=== PATIENT | female | born 1935 | race Caucasian/White ===

== ENCOUNTER 2017-07-25 16:58 | Inpatient (IN) | payer MEDICARE, SELFPAY ==
[2017-07-25] VITALS (10 sets, daily range): BP systolic 126–158; BP diastolic 83–98; PULSE 75–127; RESP 16–20; TEMP 36.7; O2SAT 94–97; BMI 31.5; BMI 30.5; BMI 30.6
--- NOTE | 2017-07-25 17:35 | RAD_ITS ---
STUDY: X-RAY CHEST REASON FOR EXAM: Female, 81 years old. PALPITATIONS, AFIB, PT HAD RECENT AORTIC VALVE REPLACEMENT TECHNIQUE: Single AP portable view of the chest. COMPARISON: January 23, 2017 FINDINGS: Cardiac monitoring leads are present. Lower lung volumes are noted. There are now small bilateral pleural effusions and subjacent compressive atelectasis. There is no evidence of interstitial or alveolar edema. Suspect probable underlying COPD with hyperlucency of the right upper lobe, this was present previously. Heart size is stable. There is mild atherosclerotic tortuosity of the aorta. It does appear that there is intracardiac aortic device.. There are diffuse degenerative changes of the visualized thoracic spine. The thoracic spine however is not well seen secondary to degenerative endplate changes. Normal visualized ribs, clavicles, and shoulders. There is no demonstrated abnormality of the visualized soft tissue structures of the upper abdomen. RAD/Chest 1 View (Portable) IMPRESSION: Bilateral pleural effusions with subjacent hypoventilatory change at the lung bases. See above. Electronically Signed: Anh Piedra MD at 19:03 EDT Tel , Service support ,
--- NOTE | 2017-07-25 17:41 | EKG12_ITS ---
Test Reason : AFIB Blood Pressure : / mmHG Vent. Rate : 131 BPM Atrial Rate : 315 BPM P-R Int : 000 ms QRS Dur : 076 ms QT Int : 302 ms P-R-T Axes : 000 -12 106 degrees QTc Int : 445 ms Atrial flutter with variable A-V block Nonspecific ST and T wave abnormality Abnormal ECG Confirmed by KEVIN TRINIDAD, SAVANAH ([id number]), managing editor IRASEMA GRIDER ([id number] on 07/28/2017 2:01:08 PM Referred By: EDPHYS Confirmed By:SAVANAH BROWN MD
[2017-07-25 18:10] LABS: Absolute Lymphocyte Count 2.29 X10^3/ul (0.83-4.51); Absolute Neutrophil Count 4.7 X10^3/uL (2.0-7.7); Basophil# 0.04 X10^3/uL; Basophil% 0.5 % (0-1); Eosinophil# 0.16 X10^3/uL; Hematocrit 35.8 % (37-47); Hemoglobin 11.5 g/dl (12.0-15.0); Lymphocyte # 2.29 X10^3/ul (4.0); Lymphocyte % 28.6 % (19-41); Mean Corp Hgb Conc 32.1 g/gl (32-36); Mean Corpuscular Hgb 30.3 pg (27.0-32.0); Mean Corpuscular Volume 94.2 fL (81-99); Mean Platelet Vol. 10.2 fl (6.2-12.0); Monocyte# 0.83 X10^3/uL; Monocyte% 10.4 % (0-10); Neutrophil # 4.66 X10^3/uL (2.7-7.7); Neutrophil % 58.2 % (47-70); POSITIVE COUNT NO; POSITIVE DIFFERENTIAL NO; POSITIVE MORPHOLOGY NO; Platelet Count 335 K/mm3 (150-450); RBC Distribution Width SD 49.9 fl (35.1-43.9)
[2017-07-25 18:14] LABS: International Normalized Ratio 1.6; Prothrombin Time (Protime)PT. 19.2 SECONDS (11.7-14.9)
[2017-07-25 18:15] LABS: Partial Thromboplast Time 40.7 Seconds (24.1-36.2)
[2017-07-25 18:22] LABS: ALB/GLOB Ratio 0.7 RATIO (0.9-2.4); AST(SGOT) 11 U/L (15-37); Alanine Aminotransfer ALT/SGPT 16 U/L (13-56); Albumin, Serum 3.3 g/dL (3.2-5.0); Alkaline Phosphatase 72 U/L (45-117); Anion Gap 8 (5-15); BUN 18 mg/dL (7-18); BUN/Creat Ratio 18.9 RATIO (10-20); Calcium,Total 8.2 mg/dL (8.5-10.1); Chloride 109 mmol/L (98-107); Creatinine, Serum 0.95 mg/dL (0.55-1.02); EST Glomerular Filtration Rate 60 mL/min (>60); Est Glom Filt Rate - Afr Amer 72 mL/min (>60); Estimated Creatinine Clearance 37.77 ml/min; Globulin 4.5 g/dL (2.2-4.2); Glucose 120 mg/dL (74-106); Potassium 3.6 mmol/L (3.5-5.1); Protein, Total 7.8 g/dL (6.4-8.2); Sodium Level 142 mmol/L (136-145)
[2017-07-25] MEDS: Metoprolol Tartrate 5 MG/5 ML Vial IV ×2 (18:46→19:59)
[2017-07-25 20:12] LABS: BNP,B-Type NATRIURETIC PEPTIDE 333.2 pg/mL (0-100)
--- NOTE | 2017-07-25 22:08 | PCM.HP.STD ---
Problem List (1) Atrial fibrillation with RVR Status: Acute (2) Heart failure with preserved ejection fraction Status: Acute (3) Pleural effusion Status: Acute (4) NSTEMI (non-ST elevated myocardial infarction) Status: Acute (5) DM2 (diabetes mellitus, type 2) Status: Chronic Qualifiers: Diabetes mellitus buttermaker helper insulin use: without assisted use Diabetes mellitus complication status: with unspecified complications Qualified Code(s): E11.8 - Type 2 diabetes mellitus with unspecified complications (6) Atherosclerosis of [place] coronary artery of [place] heart without angina pectoris Status: Chronic (7) Bronchiectasis Status: Chronic (8) Paroxysmal atrial fibrillation Status: Chronic (9) Benign essential hypertension Status: Chronic (10) Hypothyroidism Status: Chronic (11) Pulmonary HTN Status: Chronic History of Present Illness Date of Admission: 07/25/17 Chief Complaint: cough. The patient is a 81 year old F is been having a cough and dyspnea on exertion. Patient saw her dock superintendent, Dr. Garcia, who noted that the patient was in atrial fibrillation and directed patient to the emergency room. Fibrillation with RVR and I received 2 doses of 5 mg of IV metoprolol. Subsequently patient's heart rate has improved. Patient had a bilateral pleural effusions but no pneumonia. Cardiology was contacted and advised patient be admitted and have consideration for a cardioversion on the if still necessary. Patient reports taking her medications properly. Patient recently underwent a valve replacement but does not know the details of that at this time. Reviewing Dr. 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 @ [facility]; Paroxysmal atrial fibrillation (Chronic) Benign essential hypertension (Chronic) Hypothyroidism (Chronic) Diet-controlled type 2 diabetes mellitus (Chronic) Iron deficiency anemia (Chronic) Pulmonary HTN (Chronic) Allergies No Known Allergies Allergy (Verified 06/12/17 09:41) Home Medications: Ambulatory Orders Medication Instructions Recorded Ferrous Sulfate 325 mg PO DAILY 02/21/16 apixaban 5 mg tablet 5 mg PO BID #180 tab 05/11/17 metoprolol succinate ER 50 mg 50 mg PO DAILY #90 tab 05/11/17 tablet,extended release 24 hr pantoprazole 40 mg tablet,delayed 40 mg PO QDAY #90 tab 05/11/17 release Levothyroxine [Synthroid] 175 mcg PO DAILY 05/14/17 Magnesium Oxide 400 mg PO DAILY 05/14/17 Sennosides/Docusate Sodium 1 each PO DAILY 05/14/17 [Senna-Docusate Sodium Tablet] glipiZIDE [Glucotrol] 5 mg PO DAILY@0730 05/14/17 Ondansetron [Zofran Odt] 4 mg PO Q4H PRN PRN #7 tab.rapdis 05/15/17 Potassium Chloride [K-Dur] 40 meq PO BID 10 Days tab 05/15/17 lisinopril 5 mg tablet 5 mg PO QDAY #30 tab 06/12/17 Surgical History: - - hysterectemy in 1974. TAVR April 2017 Psychiatric History: No pertinent psych hx Lives: Spouse/ Significant Other Smoking Status: Never smoker Tobacco Use: Non-smoker Alcohol: None Drugs: None - *Family History Paternal History Items: - - father with cancer. Review of Systems Constitutional: Denies: Chills, Fever, Weight Change Eyes: Denies: Blurred vision, Double vision HEENT: Denies: Head Aches, Sinus Congestion, Sinus Drainage Cardiovascular: Denies: Chest Pain, Edema Respiratory: Reports: Cough, Shortness of breath upon exertion, Sputum production - clear Gastrointestinal: Denies: Abdominal Pain, Nausea, Vomiting Genitourinary: Denies: Dysuria Musculoskeletal: Denies: Joint Pain, Joint Tenderness Skin: Denies: Rash, Wounds Neurological: Denies: Numbness, Tingling, Focal weakness Psychiatric: Denies: Anxiety, Depression Hematologic/ Lymphatic: Denies: Easy Bruising, Easy Bleeding, Hx of blood clot VTE Information - Inpt Only VTE Present on Admission: No VTE Pharm Prophylaxis ordered?: Yes Patient Problems: Active and Suspected Problems (Last Updated 06/12/17 @ 09:49 by Yony Hewitt EXECUTIVE CANDIDATE DEVELOPER-C) Atrial fibrillation with RVR (Acute) Heart failure with preserved ejection fraction (Acute) Pleural effusion (Acute) NSTEMI (non-ST elevated myocardial infarction) (Acute) - Physical Exam General: Alert, Cooperative, No apparent distress HEENT: Atraumatic, Normocephalic Neck: No Nodes, Thyroid Normal Size and Texture Lungs: Diminished, - - bibasilar crackles Cardiovascular: No murmurs, Irregular Rate, Tachycardic Abdomen: Bowel Sounds Present, Soft, Non Tender, Non-Distended, No Hepato-splenomegaly Extremities: No edema, Capillary Refill Less than 3 Seconds, No Calf Tenderness Skin: No rashes, No breakdown Musculoskeletal: No Tenderness to Palpation of Joints or Extremities, No Muscle Wasting Neurological: Muscle tone normal, Coordination normal Psych/Mental Status: Normal Affect, Appropriate Vital Signs Temp Pulse Resp BP Pulse Ox 36.7 C 96 20 H 130/85 H 95 07/25/17 16:59 07/25/17 21:33 07/25/17 21:33 07/25/17 21:33 07/25/17 21:33 Oxygen Delivery Method Room Air Weight: 80.739 kg Body Mass Index (BMI) 31.5 Laboratory Tests Past 24 Hrs 07/25/17 07/25/17 07/25/17 17:50 17:50 17:50 WBC 8.0 RBC 3.80 L Hgb 11.5 L Hct 35.8 L MCV 94.2 MCH 30.3 MCHC 32.1 RDW 15.0 H RDW Differential 49.9 H Plt Count 335 MPV 10.2 Immature Gran % (Auto) 0.300 Neut % (Auto) 58.2 Lymph % (Auto) 28.6 [place] % (Auto) 10.4 H Eos % (Auto) 2.0 Baso % (Auto) 0.5 Absolute Neuts (auto) 4.7 Absolute Lymphs (auto) 2.29 Total Counted Not Reportable PT 19.2 H INR 1.6 APTT 40.7 H Sodium 142 Potassium 3.6 Chloride 109 H Carbon Dioxide 25.0 Anion Gap 8 BUN 18 Creatinine 0.95 Estim Creat Clear Calc 37.77 Est GFR (MDRD) Af Amer 72 Est GFR (MDRD) Non-Af 60 BUN/Creatinine Ratio 18.9 Glucose 120 H Calcium 8.2 L Total Bilirubin 0.60 AST 11 L ALT 16 Alkaline Phosphatase 72 Troponin I 0.22 H B-Natriuretic Peptide Total Protein 7.8 Albumin 3.3 Globulin 4.5 H Albumin/Globulin Ratio 0.7 L 07/25/17 17:50 WBC RBC Hgb Hct MCV MCH MCHC RDW RDW Differential Plt Count MPV Immature Gran % (Auto) Neut % (Auto) Lymph % (Auto) [place] % (Auto) Eos % (Auto) Baso % (Auto) Absolute Neuts (auto) Absolute Lymphs (auto) Total Counted PT INR APTT Sodium Potassium Chloride Carbon Dioxide Anion Gap BUN Creatinine Estim Creat Clear Calc Est GFR (MDRD) Af Amer Est GFR (MDRD) Non-Af BUN/Creatinine Ratio Glucose Calcium Total Bilirubin AST ALT Alkaline Phosphatase Troponin I B-Natriuretic Peptide 333.2 H Total Protein Albumin Globulin Albumin/Globulin Ratio CXR: Reviewed and showed bilateral pleural effusions. Assessment/Plan Active and Suspected Problems (Last Updated 06/12/17 @ 09:49 by Yony Hewitt, EXECUTIVE CANDIDATE DEVELOPER-C) Atrial fibrillation with RVR (Acute) Heart failure with preserved ejection fraction (Acute) Pleural effusion (Acute) NSTEMI (non-ST elevated myocardial infarction) (Acute) 1. Atrial fibrillation with RVR Currently rate is better controlled Continue with Eliquis Continue with Toprol Cardiology on consultation and will determine if patient will require a cardioversion or not 2. Acute heart failure with preserved ejection fraction Patient with bilateral pleural effusions and is symptomatic Ejection fraction of 64% on echocardiogram from May 18, 2017 Will start patient on IV Lasix Continue with Toprol and lisinopril 3. Pleural effusions Likely transudate of due to heart failure Do not see any indication to do a thoracentesis at this time as likely will not change therapy 4. Non-STEMI I suspect a type II event given the patient's atrial fibrillation with RVR Slight elevation in troponin which previously had been normal and previous lab tests Medical management for now Cardiology on consultation Cycle troponins 5. Diabetes mellitus type 2 Control at this time Continue with glyburide 6. DVT prophylaxis: Patient is already anticoagulated 7. Advanced care planning: I discussed the patient about CPR and mechanical ventilation. Patient wishes to be full CODE STATUS at this time. Code Visit Inpatient E&M: 18218 Init Hosp L3
--- NOTE | 2017-07-25 22:20 | HP.PCM_ITS ---
Problem List (1) Atrial fibrillation with RVR Status: Acute (2) Heart failure with preserved ejection fraction Status: Acute (3) Pleural effusion Status: Acute (4) NSTEMI (non-ST elevated myocardial infarction) Status: Acute (5) DM2 (diabetes mellitus, type 2) Status: Chronic Qualifiers: Diabetes mellitus vermin exterminator insulin use: without vermin exterminator use Diabetes mellitus complication status: with unspecified complications Qualified Code(s) : E11.8 - Type 2 diabetes mellitus with unspecified complications (6) Atherosclerosis of [place] coronary artery of [place] heart without angina pectoris Status: Chronic (7) Bronchiectasis Status: Chronic (8) Paroxysmal atrial fibrillation Status: Chronic (9) Benign essential hypertension Status: Chronic (10) Hypothyroidism Status: Chronic (11) Pulmonary HTN Status: Chronic History of Present Illness Date of Admission: 07/25/17 Chief Complaint: cough. The patient is a 81 year old F is been having a cough and dyspnea on exertion. Patient saw her tree expert, Dr. Garcia, who noted that the patient was in atrial fibrillation and directed patient to the emergency room. Fibrillation with RVR and I received 2 doses of 5 mg of IV metoprolol. Subsequently patient' s heart rate has improved. Patient had a bilateral pleural effusions but no pneumonia. Cardiology was contacted and advised patient be admitted and have consideration for a cardioversion on the if still necessary. Patient reports taking her medications properly. Patient recently underwent a valve replacement but does not know the details of that at this time. Reviewing Dr. 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/10/2017 @ [facility]; Paroxysmal atrial fibrillation (Chronic) Benign essential hypertension (Chronic) Hypothyroidism (Chronic) Diet-controlled type 2 diabetes mellitus (Chronic) Iron deficiency anemia (Chronic) Pulmonary HTN (Chronic) Allergies No Known Allergies Allergy (Verified 06/12/17 09:41) Home Medications: Ambulatory Orders Medication Instructions Recorded Ferrous Sulfate 325 mg PO DAILY 02/21/16 apixaban 5 mg tablet 5 mg PO BID #180 tab 05/11/17 metoprolol succinate ER 50 mg 50 mg PO DAILY #90 tab 05/11/17 tablet,extended release 24 hr pantoprazole 40 mg tablet,delayed 40 mg PO QDAY #90 tab 05/11/17 release Levothyroxine [Synthroid] 175 mcg PO DAILY 05/14/17 Magnesium Oxide 400 mg PO DAILY 05/14/17 Sennosides/Docusate Sodium 1 each PO DAILY 05/14/17 [Senna-Docusate Sodium Tablet] glipiZIDE [Glucotrol] 5 mg PO DAILY@0730 05/14/17 Ondansetron [Zofran Odt] 4 mg PO Q4H PRN PRN #7 tab.rapdis 05/15/17 Potassium Chloride [K-Dur] 40 meq PO BID 10 Days tab 05/15/17 lisinopril 5 mg tablet 5 mg PO QDAY #30 tab 06/12/17 Surgical History: - - hysterectemy in 1974. TAVR April 2017 Psychiatric History: No pertinent psych hx Lives: Spouse/ Significant Other Smoking Status: Never smoker Tobacco Use: Non-smoker Alcohol: None Drugs: None - *Family History Paternal History Items: - - father with cancer. Review of Systems Constitutional: Denies: Chills, Fever, Weight Change Eyes: Denies: Blurred vision, Double vision HEENT: Denies: Head Aches, Sinus Congestion, Sinus Drainage Cardiovascular: Denies: Chest Pain, Edema Respiratory: Reports: Cough, Shortness of breath upon exertion, Sputum production - clear Gastrointestinal: Denies: Abdominal Pain, Nausea, Vomiting Genitourinary: Denies: Dysuria Musculoskeletal: Denies: Joint Pain, Joint Tenderness Skin: Denies: Rash, Wounds Neurological: Denies: Numbness, Tingling, Focal weakness Psychiatric: Denies: Anxiety, Depression Hematologic/ Lymphatic: Denies: Easy Bruising, Easy Bleeding, Hx of blood clot VTE Information - Inpt Only VTE Present on Admission: No VTE Pharm Prophylaxis ordered?: Yes Patient Problems: Active and Suspected Problems (Last Updated 06/12/17 @ 09:49 by Yony Hewitt FUR IRONER- C) Atrial fibrillation with RVR (Acute) Heart failure with preserved ejection fraction (Acute) Pleural effusion (Acute) NSTEMI (non-ST elevated myocardial infarction) (Acute) - Physical Exam General: Alert, Cooperative, No apparent distress HEENT: Atraumatic, Normocephalic Neck: No Nodes, Thyroid Normal Size and Texture Lungs: Diminished, - - bibasilar crackles Cardiovascular: No murmurs, Irregular Rate, Tachycardic Abdomen: Bowel Sounds Present, Soft, Non Tender, Non-Distended, No Hepato- splenomegaly Extremities: No edema, Capillary Refill Less than 3 Seconds, No Calf Tenderness Skin: No rashes, No breakdown Musculoskeletal: No Tenderness to Palpation of Joints or Extremities, No Muscle Wasting Neurological: Muscle tone normal, Coordination normal Psych/Mental Status: Normal Affect, Appropriate Vital Signs Temp Pulse Resp BP Pulse Ox 36.7 C 96 20 H 130/85 H 95 07/25/17 16:59 07/25/17 21:33 07/25/17 21:33 07/25/17 21:33 07/25/17 21:33 Oxygen Delivery Method Room Air Weight: 80.739 kg Body Mass Index (BMI) 31.5 Laboratory Tests Past 24 Hrs 07/25/17 07/25/17 07/25/17 17:50 17:50 17:50 WBC 8.0 RBC 3.80 L Hgb 11.5 L Hct 35.8 L MCV 94.2 MCH 30.3 MCHC 32.1 RDW 15.0 H RDW Differential 49.9 H Plt Count 335 MPV 10.2 Immature Gran % (Auto) 0.300 Neut % (Auto) 58.2 Lymph % (Auto) 28.6 [place] % (Auto) 10.4 H Eos % (Auto) 2.0 Baso % (Auto) 0.5 Absolute Neuts (auto) 4.7 Absolute Lymphs (auto) 2.29 Total Counted Not Reportable PT 19.2 H INR 1.6 APTT 40.7 H Sodium 142 Potassium 3.6 Chloride 109 H Carbon Dioxide 25.0 Anion Gap 8 BUN 18 Creatinine 0.95 Estim Creat Clear Calc 37.77 Est GFR (MDRD) Af Amer 72 Est GFR (MDRD) Non-Af 60 BUN/Creatinine Ratio 18.9 Glucose 120 H Calcium 8.2 L Total Bilirubin 0.60 AST 11 L ALT 16 Alkaline Phosphatase 72 Troponin I 0.22 H B-Natriuretic Peptide Total Protein 7.8 Albumin 3.3 Globulin 4.5 H Albumin/Globulin Ratio 0.7 L 07/25/17 17:50 WBC RBC Hgb Hct MCV MCH MCHC RDW RDW Differential Plt Count MPV Immature Gran % (Auto) Neut % (Auto) Lymph % (Auto) [place] % (Auto) Eos % (Auto) Baso % (Auto) Absolute Neuts (auto) Absolute Lymphs (auto) Total Counted PT INR APTT Sodium Potassium Chloride Carbon Dioxide Anion Gap BUN Creatinine Estim Creat Clear Calc Est GFR (MDRD) Af Amer Est GFR (MDRD) Non-Af BUN/Creatinine Ratio Glucose Calcium Total Bilirubin AST ALT Alkaline Phosphatase Troponin I B-Natriuretic Peptide 333.2 H Total Protein Albumin Globulin Albumin/Globulin Ratio CXR: Reviewed and showed bilateral pleural effusions. Assessment/Plan Active and Suspected Problems (Last Updated 06/12/17 @ 09:49 by Yony Hewitt, FUR IRONER- C) Atrial fibrillation with RVR (Acute) Heart failure with preserved ejection fraction (Acute) Pleural effusion (Acute) NSTEMI (non-ST elevated myocardial infarction) (Acute) 1. Atrial fibrillation with RVR * Currently rate is better controlled * Continue with Eliquis * Continue with Toprol * Cardiology on consultation and will determine if patient will require a cardioversion or not 2. Acute heart failure with preserved ejection fraction * Patient with bilateral pleural effusions and is symptomatic * Ejection fraction of 64% on echocardiogram from May 18, 2017 * Will start patient on IV Lasix * Continue with Toprol and lisinopril 3. Pleural effusions * Likely transudate of due to heart failure * Do not see any indication to do a thoracentesis at this time as likely will not change therapy 4. Non-STEMI * I suspect a type II event given the patient's atrial fibrillation with RVR * Slight elevation in troponin which previously had been normal and previous lab tests * Medical management for now * Cardiology on consultation * Cycle troponins 5. Diabetes mellitus type 2 * Control at this time * Continue with glyburide 6. DVT prophylaxis: Patient is already anticoagulated 7. Advanced care planning: I discussed the patient about CPR and mechanical ventilation. Patient wishes to be full CODE STATUS at this time. Code Visit Inpatient E&M: 18112 Init Hosp L3
[2017-07-25] MEDS: Furosemide 40 MG/4 ML Vial IV (23:08)
[2017-07-25] MEDS: 0.9% NaCl Peripheral Flush Adult/Peds IV (23:08)
--- NOTE | 2017-07-25 23:27 | NURSING ---
Pt does not know her medications, will have to contact pharmacy in the AM
--- NOTE | 2017-07-25 23:51 | ED.VISSUMM ---
- ER Visit Summary Date of Service: 07/25/17 Chief Complaint: Dyspnea History of Present Illness: The patient is a 81 F who states that she had an aortic valve replacement in April. She does not know the details such as who performed at or what type of valve. She developed a cough and dyspnea on exertion for the past couple weeks. She notes that her cough produces a clear sputum occasionally. She went to her food service aide Dr. Garcia and was advised that she had atrial fibrillation and was sent to the emergency room. In February of last year she had a heart catheterization that showed mild coronary artery disease, moderate pulmonary hypertension and severe aortic stenosis. She will underwent aortic valve repair at [facility] on April 10. She takes Eliquis and digoxin as well as metoprolol. She sees Dr. Jean for cardiology. She does have paroxysmal atrial fibrillation but per for his last note she was in a sinus rhythm. To the family's and the patient's knowledge she has not missed any doses of Eliquis. Physical Examination: Heart rate 132 blood pressure 154/95 temperature 98.1 respiratory rate 16 pulse ox 95% on room air Gen: Well-nourished well-developed Head: Normocephalic atraumatic Eyes: Perrl EOMI ENT: TMs clear no rhinorrhea moist mucous membranes Neck: Supple no lymphadenopathy no JVD nontender CVS: Irregularly irregular rate and tachycardic rhythm no murmurs normal S1-S2 Respiratory: No distress clear to auscultation bilaterally chest nontender diminished at bases Abdomen: Soft nontender nondistended normal bowel sounds no masses Back: Nontender Extremity: Nontender no edema Skin: Normal color no rash Neuro: alert orientated ?3 CN II-XII intact normal strength sensation reflexes gait cerebellar Psych: Normal affect normal mood Test Results: EKG shows atrial fibrillation at a rate of 132 chest x-ray shows bilateral pleural effusions that are small. INR 1.6. Troponin 0.22. Hemoglobin 11.5 Emergency Department Course and Treatment: Elevated troponin is most likely due to rate dependent ischemia. Patient received metoprolol and her heart rate has improved significantly down into the 80-90 range. I spoke with Dr. Orr. Talked about possible treatment options for the patient including defibrillation here tonight. However is late at night given the patient's age she would not be able to leave the least 3 in the morning. Our plan is to control her rate tonight and to have her reevaluated in the morning for possible defibrillation or other treatment. Impression 1. Atrial fibrillation with rapid ventricular response 2. Elevated troponin This note was generated with [employer] dictation software. It may contain incorrect words, spelling, and punctuation that were not noted in review of the chart prior to signing ED Disposition - Plan for ED Patient: Disposition: Acute Care [facility] Chief Complaint: Palpitations
--- NOTE | 2017-07-25 23:56 | ED.DCSUM_ITS ---
- ER Visit Summary Date of Service: 07/25/17 Chief Complaint: Dyspnea History of Present Illness: The patient is a 81 F who states that she had an aortic valve replacement in April. She does not know the details such as who performed at or what type of valve. She developed a cough and dyspnea on exertion for the past couple weeks. She notes that her cough produces a clear sputum occasionally. She went to her civil service clerk Dr. Garcia and was advised that she had atrial fibrillation and was sent to the emergency room. In February of last year she had a heart catheterization that showed mild coronary artery disease, moderate pulmonary hypertension and severe aortic stenosis. She will underwent aortic valve repair at [facility] on April 10. She takes Eliquis and digoxin as well as metoprolol. She sees Dr. Jean for cardiology. She does have paroxysmal atrial fibrillation but per for his last note she was in a sinus rhythm. To the family's and the patient's knowledge she has not missed any doses of Eliquis. Physical Examination: Heart rate 132 blood pressure 154/95 temperature 98.1 respiratory rate 16 pulse ox 95% on room air Gen: Well-nourished well-developed Head: Normocephalic atraumatic Eyes: Perrl EOMI ENT: TMs clear no rhinorrhea moist mucous membranes Neck: Supple no lymphadenopathy no JVD nontender CVS: Irregularly irregular rate and tachycardic rhythm no murmurs normal S1-S2 Respiratory: No distress clear to auscultation bilaterally chest nontender diminished at bases Abdomen: Soft nontender nondistended normal bowel sounds no masses Back: Nontender Extremity: Nontender no edema Skin: Normal color no rash Neuro: alert orientated ?3 CN II-XII intact normal strength sensation reflexes gait cerebellar Psych: Normal affect normal mood Test Results: EKG shows atrial fibrillation at a rate of 132 chest x-ray shows bilateral pleural effusions that are small. INR 1.6. Troponin 0.22. Hemoglobin 11.5 Emergency Department Course and Treatment: Elevated troponin is most likely due to rate dependent ischemia. Patient received metoprolol and her heart rate has improved significantly down into the 80-90 range. I spoke with Dr. Orr. Talked about possible treatment options for the patient including defibrillation here tonight. However is late at night given the patient's age she would not be able to leave the least 3 in the morning. Our plan is to control her rate tonight and to have her reevaluated in the morning for possible defibrillation or other treatment. Impression 1. Atrial fibrillation with rapid ventricular response 2. Elevated troponin This note was generated with [employer] dictation software. It may contain incorrect words, spelling, and punctuation that were not noted in review of the chart prior to signing ED Disposition - Plan for ED Patient: Disposition: Acute Care Hospital [facility] Chief Complaint: Palpitations
[2017-07-26] VITALS (30 sets, daily range): BP systolic 57–153; BP diastolic 32–79; PULSE 65–149; RESP 14–24; TEMP 36.6–37.2; O2SAT 92–100
[2017-07-26] MEDS: Levothyroxine 175 MCG Tablet PO (05:16)
--- NOTE | 2017-07-26 05:55 | EKG12_ITS ---
Test Reason : AFIB Blood Pressure : / mmHG Vent. Rate : 079 BPM Atrial Rate : 064 BPM P-R Int : 166 ms QRS Dur : 090 ms QT Int : 404 ms P-R-T Axes : 075 -09 079 degrees QTc Int : 463 ms Sinus rhythm with frequent Premature ventricular complexes Nonspecific ST abnormality Abnormal ECG When compared with ECG of 26-JUL-2017 13:48, MANUAL COMPARISON REQUIRED, DATA IS UNCONFIRMED Confirmed by KEVIN TRINIDAD, SAVANAH ([id number]), television news video editor IRASEMA GRIDER ([id number]) on 07/28/2017 3:03:57 PM Referred By: KYLE Confirmed By:SAVANAH BROWN MD
[2017-07-26 06:51] LABS: Bedside Glucose 119 mg/dL (70-110)
[2017-07-26 07:25] LABS: Anion Gap 9 (5-15); BUN 16 mg/dL (7-18); BUN/Creat Ratio 17.5 RATIO (10-20); Calcium,Total 8.8 mg/dL (8.5-10.1); Chloride 100 mmol/L (98-107); Creatinine, Serum 0.92 mg/dL (0.55-1.02); EST Glomerular Filtration Rate 62 mL/min (>60); Est Glom Filt Rate - Afr Amer 75 mL/min (>60); Glucose 117 mg/dL (74-106); Potassium 3.1 mmol/L (3.5-5.1); Sodium Level 138 mmol/L (136-145); Thyroid Stim Hormone (TSH) 0.41 uIU/mL (0.358-3.74)
--- NOTE | 2017-07-26 08:23 | PN_ITS ---
Patient Problems: Active and Suspected Problems (Last Updated 07/26/17 @ 10:51 by Bandar Oseguera MD) Acute on chronic diastolic CHF (congestive heart failure) (Suspected) Atrial fibrillation with RVR (Acute) Pleural effusion (Acute) Subjective: Follow-up after admission for A. shante with RVR, suspected acute on chronic diastolic CHF, bilateral pleural effusion, borderline elevated troponin and probable acute exacerbation of bronchiectasis. Patient seen and examined. No acute events overnight. She still complaining of cough with clear sputum. Shortness of breath improved. She denies fever chills. Denied chest pain or palpitation. She is afebrile, heart rate has been around 100, blood pressure stable, pulse ox is 93% on room air. - Physical Exam General: Alert, Oriented x3, Cooperative, - - Minimal shortness of breath. HEENT: Atraumatic, PERRLA, EOMI Oral: Moist Mucosa, No Gingival or Mucosal Lesions/ Ulcerations Neck: Supple, No JVD, Negative Carotid Bruits, Trachea Midline, Thyroid Normal Size and Texture Lungs: No wheeze, Diminished, Rales, Rhonchi, - - Decreased breath sounds bilateral, more at the bases, faint crackles in the bases. Cardiovascular: Normal S1, Normal S2, No murmurs, PMI Normal, Irregular Rate, Tachycardic Abdomen: Bowel Sounds Present, Soft, Non Tender, Non-Distended, No Hepato- splenomegaly Extremities: No clubbing, No cyanosis, No edema Skin: No rashes, No breakdown Lymphatic: No Cervical, Supraclavicular, or Inguinal Adenopathy Neurological: Cranial nerves II-XII grossly intact, Neuro grossly intact Psych/Mental Status: Normal Affect, Appropriate, Alert and oriented to time, place, person, mood and affect Vital Signs Temp Pulse Resp BP Pulse Ox 97.9 F 96 16 153/79 H 93 07/26/17 04:30 07/26/17 06:56 07/26/17 04:30 07/26/17 04:30 07/26/17 04:30 Oxygen Delivery Method Room Air Weight: 172 lb 9.951 oz Body Mass Index (BMI) 30.5 Intake and Output for Last 24 Hours 07/24/17 07/25/17 07/26/17 23:59 23:59 23:59 Intake Total 420 / 420 Balance 420 / 420 Laboratory Tests Past 24 Hrs 07/25/17 07/26/17 07/26/17 22:49 01:20 06:30 Sodium 138 Potassium 3.1 L Chloride 100 Carbon Dioxide 29.0 Anion Gap 9 BUN 16 Creatinine 0.92 Estim Creat Clear Calc 39.00 Est GFR (MDRD) Af Amer 75 Est GFR (MDRD) Non-Af 62 BUN/Creatinine Ratio 17.5 Glucose 117 H Calcium 8.8 Troponin I 0.22 H 0.22 H TSH 0.41 POC Glucose 07/26/17 06:48 POC Glucose 119 H Clinical Impression(s) from Imaging Studies Chest X-Ray 07/25/17 17:35 IMPRESSION: Bilateral pleural effusions with subjacent hypoventilatory change at the lung bases. See above. Electronically Signed: Anh Piedra MD at 19:03 EDT Tel , Service support , Medical Necessity - Tobacco Use Smoking Status: Never smoker Tobacco Use: Non-smoker Assessment/Plan Active and Suspected Problems (Last Updated 07/26/17 @ 10:51 by Bandar Oseguera MD) Acute on chronic diastolic CHF (congestive heart failure) (Suspected) Atrial fibrillation with RVR (Acute) Pleural effusion (Acute) This is an 81 years old female patient presented to the medicine because of shortness of breath and productive cough over the last couple of weeks and she was found to have A. fib with RVR, bilateral pleural effusion more on the left side, suspect acute and chronic gastric CHF and probable exacerbation of bronchiectasis. #1 shortness of breath/productive cough: Probably multifactorial secondary to possible acute and chronic CHF and exacerbation of bronchiectasis. She is afebrile, no leukocytosis. I doubt pneumonia. She has new bilateral pleural effusion more on the left lung which could be due to transudative effusion secondary to CHF. She is on IV Lasix for diuresis. She had a history of bronchiectasis and she has been complaining of cough with clear sputum. Denied fever chills. Plan: Continue same treatment, start albuterol as needed, chest physical therapy, incentive spirometer, sputum culture. #2 suspected acute on chronic diastolic CHF: This is based on her symptoms chest x-ray findings and elevated BNP. She had an echocardiogram on October, that revealed ejection fraction of 60% and severe aortic stenosis. She underwent TAVR for severe aortic stenosis on April,. She is on IV Lasix for diuresis, continued on lisinopril and metoprolol. Cardiology consulted. Her EKG revealed A. fib with RVR, no acute ischemic changes. Troponin was borderline elevated and flat. TSH was normal. Serum potassium was low, on replacement. Plan to continue same treatment, check serum magnesium. #3 probable acute exacerbation of bronchiectasis: This is based on symptoms of productive cough and shortness of breath. Chest x-ray revealed bilateral new pleural effusion, more on the left side. Patient denies any fever or chills. Plan: Albuterol as needed, sputum culture. At this time, no indication for IV antibiotics. #4 A. fib with RVR: Patient has been in A. fib with RVR, rate has been around 100, blood pressure stable. Continue metoprolol for rate control and Eliquis for anticoagulation. #5 borderline elevated troponin: This is likely due to demand ischemia secondary to A. fib with RVR. EKG revealed A. fib with RVR, no acute ischemic changes. She is on Eliquis, metoprolol and lisinopril. Plan for 2D echocardiogram. #6 aortic valve stenosis status post TAVR: This was done on April, for severe aortic stenosis. Plan for 2D echocardiogram as above. #7 hypertension: Blood pressure stable, continue lisinopril, metoprolol and IV Lasix. #8 type 2 diabetes mellitus: ADA diet, Accu-Cheks, insulin sliding scale, continue glipizide. #9 hypothyroidism: Levothyroxine. TSH is normal. #10 DVT prophylaxis: Continue Eliquis. This note was generated with [employer] dictation software. It may contain incorrect words, spelling, and punctuation that were not noted in checking the note before signing. Code Visit Inpatient E&M: [id number] [facility] L3
[2017-07-26] MEDS: Magnesium Oxide 400 MG Tablet PO (10:37)
[2017-07-26] MEDS: Lisinopril 5 MG Tablet PO (10:37)
[2017-07-26] MEDS: Ferrous Sulfate 325 MG Tablet PO (10:37)
[2017-07-26] MEDS: APIXABAN 5 MG TABLET PO ×2 (10:37→21:36)
[2017-07-26] MEDS: Pantoprazole Sodium 40 MG Tablet PO (10:38)
[2017-07-26] MEDS: Metoprolol(XL)Succ 50 MG Tablet PO (10:38)
[2017-07-26] MEDS: glipiZIDE 5 MG Tablet PO (10:38)
[2017-07-26] MEDS: guaiFENesin 600 MG Tablet PO ×2 (10:38→21:36)
[2017-07-26] MEDS: Furosemide 40 MG/4 ML Vial IV (10:38)
[2017-07-26] MEDS: 0.9% NaCl Peripheral Flush Adult/Peds IV ×4 (10:38→21:34)
[2017-07-26] MEDS: Senna/Docusate Sodium 1 Tablet PO (10:38)
--- NOTE | 2017-07-26 11:46 | ECHOD_ITS ---
Reason For Study: CHF Procedure This was a 2D Doppler, Color Flow transthoracic echocardiogram. Exam performed portable in patient room. Left Ventricle Mild concentric left ventricular hypertrophy. The estimated ejection fraction is 65 %. No regional wall motion abnormalities noted. Right Ventricle Normal size and thickness. Normal systolic function. Atria The left atrium is mildly enlarged. Normal right atrium. Normal atrial septum. Mitral Valve Moderate diffuse mitral valve thickening. Anterior leaflet mitral valve prolapse. Moderately severe (3+) posteriorly directed mitral valve insufficiency. Tricuspid Valve Normal tricuspid valve. Mild (1+) tricuspid valve insufficiency. Right ventricular systolic pressure estimated to be 50 mmHg. Moderate pulmonary hypertension. Aortic Valve There is no aortic valvular vegetation. Bioprosthetic aortic valve. Stable appearing bioprosthetic aortic valve apparatus. Pulmonic Valve Normal pulmonic valve. Great Vessels Calcified aortic root. Normal inferior vena cava. Inferior vena cava collapse with sniff. Pericardium/Pleural No pericardial effusion. MMode/2D Measurements & Calculations LVIDd: 3.5 cm IVSd: 1.3 cm LVOT diam: 2.0 cm LVIDs: 2.6 cm LVPWd: 1.0 cm LVOT area: 3.2 cm2 RVDd: 3.4 cm FS: 26.8 % Ao root diam: 3.0 cm LAV(MOD-bp): 59.1 ml EDV(MOD-sp4): 58.3 ml LA dimension: 4.1 cm LAV(MOD-bp) Indexed: 32.1 ml/m2 ESV(MOD-sp4): 29.7 ml LAV(MOD-sp2): 66.2 ml EF(MOD-sp4): 49.1 % LAV(MOD-sp4): 48.8 ml EDV(MOD-sp2): 47.7 ml SV(MOD-sp4): 28.6 ml SV(MOD-sp2): 18.8 ml EF(MOD-sp2): 39.5 % LA A4 area: 17.6 cm2 RA A4 area: 14.0 cm2 Doppler Measurements & Calculations MV E max indra: 205.3 cm/sec Ao V2 max: 180.1 cm/sec AI max indra: 181.7 cm/sec MV A max indra: 131.0 cm/sec Ao max P.1 mmHg AI max P.2 mmHg MV E/A: 1.6 Ao V2 mean: 117.4 cm/sec AI dec slope: 458.0 cm/sec2 Ao mean P.3 mmHg AI P1/2t: 116.2 msec Ao V2 VTI: 23.0 cm NIK(I,D): 1.7 cm2 NIK(V,D): 1.7 cm2 LV V1 max: 95.9 cm/sec SV(LVOT): 39.4 ml TR max indra: 341.3 cm/sec LV V1 max P.7 mmHg TR max P.6 mmHg LV V1 mean P.6 mmHg LV V1 mean: 56.9 cm/sec LV V1 VTI: 12.2 cm Interpretation Summary Mild concentric left ventricular hypertrophy. The estimated ejection fraction is 65 %. The left atrium is mildly enlarged. Moderately severe (3+) posteriorly directed mitral valve insufficiency. Mild (1+) tricuspid valve insufficiency. Right ventricular systolic pressure estimated to be 50 mmHg. Moderate pulmonary hypertension. There is no aortic valvular vegetation. Stable appearing bioprosthetic aortic valve apparatus. There is no comparison study available. The study was technically difficult. Ordering Physician: Bandar Oseguera Referring Physician: RADHA JIMENEZ Performed By: Nupur Cowan, JAMIA, RVT
[2017-07-26 12:01] LABS: Magnesium 1.4 mg/dL (1.6-2.6)
--- NOTE | 2017-07-26 12:47 | PCM.CONS.C ---
Problem List (1) Atrial fibrillation with RVR Status: Acute (2) Atherosclerosis of [place] coronary artery of [place] heart without angina pectoris Status: Chronic (3) Nonrheumatic aortic (valve) stenosis Status: Chronic Comment: NIK 0.71cm2 per echo 09/08/2016; S/P TAVR with 26 Veronique S3 valve 04/10/[address] [facility]; (4) Pulmonary HTN Status: Chronic Reason for Consult Date of Consultation: 07/26/17 Reason for Consultation: Aortic valve replacement, atrial flutter, RVR, pulmonary hypertension History of Present Illness: The patient is a 81 year old F, patient of Dr. Ledezma, last seen in the office on 02/02/17 with a history of severe aortic stenosis status post T AVR procedure in April 2017, previous echocardiogram demonstrated preserved LV function with a mean gradient of 44 mmHg. Patient also is a history of paroxysmal atrial fibrillation and is on chronic beta-piter and anticoagulation therapy with Eliquis. The patient was doing well up until the last few days to week when she developed productive cough, sputum, with associated shortness of breath but no palpitations or angina. Patient apparently went to go see Dr. Garcia yesterday she was found to be tachycardic and EKG showed atrial flutter with rapid ventricular response. She was sent from Dr. Garcia's office to the emergency room where she was then admitted for cardiac care given the lateness of the hour and the snow. Patient denied any chest pain or angina, denies any presyncope, syncope, fevers or chills. An echocardiogram done this morning to evaluate her prosthetic aortic valve demonstrated preserved LV function with an EF around 65%, mild left atrial enlargement, moderate to severe 3+ posteriorly directed mitral regurgitation, RVSP of at least 50 mmHg consistent with moderate pulmonary hypertension. Patient had no evidence of bacterial vegetations on her aortic valve. The patient was found to be hypokalemic and hypomagnesemic and those are being replaced right now. Patient is stable in bed, no acute distress. [] Past Medical History Allergies/Adverse Reactions: Allergies No Known Allergies Allergy (Verified 06/12/17 09:41) Home Medications: Ambulatory Orders Medication Instructions Recorded Ferrous Sulfate 325 mg PO DAILY 02/21/16 apixaban 5 mg tablet 5 mg PO BID #180 tab 05/11/17 metoprolol succinate ER 50 mg 50 mg PO DAILY #90 tab 05/11/17 tablet,extended release 24 hr Levothyroxine [Synthroid] 175 mcg PO DAILY 05/14/17 Magnesium Oxide 400 mg PO DAILY 05/14/17 Sennosides/Docusate Sodium 1 each PO DAILY 05/14/17 [Senna-Docusate Sodium Tablet] glipiZIDE [Glucotrol] 5 mg PO DAILY@0730 05/14/17 Ondansetron [Zofran Odt] 4 mg PO Q4H PRN PRN #7 tab.rapdis 05/15/17 Potassium Chloride [K-Dur] 40 meq PO BID 10 Days tab 05/15/17 Lisinopril [Zestril] 5 mg PO DAILY 07/26/17 Pantoprazole Sodium 40 mg PO DAILY@72907/26/17 Past Medical History (Chronic Problems): Chronic Problems (Last Updated 07/26/17 @ 10:51 by Bandar Oseguera MD) DM2 (diabetes mellitus, type 2) (Chronic) Atherosclerosis of [place] coronary artery of [place] heart without angina pectoris (Chronic) Bronchiectasis (Chronic) history of near-syncope (Chronic) Nonrheumatic aortic (valve) stenosis (Chronic) NIK 0.71cm2 per echo 09/08/2016; S/P TAVR with 26 Veronique S3 valve 04/10/[address] [facility]; Paroxysmal atrial fibrillation (Chronic) Benign essential hypertension (Chronic) Hypothyroidism (Chronic) Diet-controlled type 2 diabetes mellitus (Chronic) Iron deficiency anemia (Chronic) Pulmonary HTN (Chronic) Surgical History: - - hysterectemy in 1974. TAVR April 2017 Psychiatric History: No pertinent psych hx - *Family History Paternal Family History: Family History (Last Updated 06/12/17 @ 09:42 by Gladis Clifton) Son Myocardial infarction, Onset Age: 56 History Items: - - father with cancer. Sibling Family History: Family History (Last Updated 06/12/17 @ 09:42 by Gladis Clifton) Son Myocardial infarction, Onset Age: 56 Lives: Spouse/ Significant Other Smoking Status: Never smoker Tobacco Use: Non-smoker Alcohol: None Drugs: None Review of Systems - Review of Systems General: Denies: Fever, Night Sweats, Fatigue Cardiovascular: Reports: Shortness of Breath, Shortness of Breath with Exertion, Palpitations. Denies: Chest Discomfort, Orthopnea, PND, Peripheral Edema, Lightheadedness, Dizziness, Near Syncope, Syncope Respiratory: Reports: Cough, Sputum Production. Denies: Hemoptysis Gastrointestinal: Denies: Hematemesis, Hematochezia, Melena Genitourinary: Denies: Dysuria, Hematuria Skin: Denies: Rash Subjectve: Patient laying in bed, no acute distress. Patient atrial flutter with 2-1 conduction. Objective: Vital Signs Temp Pulse Resp BP Pulse Ox 97.9 F 112 H 16 141/78 H 94 07/26/17 09:38 07/26/17 11:13 07/26/17 09:38 07/26/17 09:38 07/26/17 09:38 Oxygen Delivery Method Room Air Weight: 172 lb 9.951 oz Body Mass Index (BMI) 30.5 Intake and Output for Last 24 Hours 07/24/17 07/25/17 07/26/17 23:59 23:59 23:59 Intake Total 680 / 680 Balance 680 / 680 General: Awake, Alert, Oriented x 3 HEENT: PERRL, EOMI, Sclera Non Icteric Neck: Supple, Good ROM, No Lymph Node Enlargement Lungs: Clear to auscultation Cardiovascular: Irregular Rhythm, Normal S1, Normal S2, No Rubs, No Gallops Murmur Murmur: Grade 3/6, Holosystolic Vascular: No Carotid Bruits, Normal Femoral Pulses, Normal Radial Pulses, Normal Dorsalis Pedal Pulse, Normal Posterior Tibial Pulses Abdomen: Bowel Sounds Present, Soft, Non Tender, No HSM, No Organomegaly Extremities: No Cyanosis, No Clubbing, No edema Neurological: No Focal Motor or Sensory Deficit 07/25/17 22:49: Troponin I 0.22 H 07/26/17 01:20: Troponin I 0.22 H 07/26/17 06:30: Sodium 138, Potassium 3.1 L, Chloride 100, Carbon Dioxide 29.0, Anion Gap 9, BUN 16, Creatinine 0.92, Est GFR (MDRD) Af Amer 75, Est GFR (MDRD) Non-Af 62, BUN/Creatinine Ratio 17.5, Glucose 117 H, Calcium 8.8 07/26/17 06:30: Magnesium 1.4 L Rhythm: EKG: ECHO: Stress Test: Cardiac Cath: PCI: CT Surgery: Holter monitor: EPS: PPM: CXR: Chest CT Scan: Assessment/Plan 1. Atrial flutter: Patient is on chronic Eliquis therapy for her paroxysmal atrial fibrillation, and on Toprol-XL 50 mg p.o. daily. She is hypomagnesemic and hypokalemic at this time, and has evidence of at least moderate pulmonary hypertension. She is on hydrochlorothiazide 25 mg p.o. daily at home. According to the patient's daughter, patient's other daughter monitors her medications and assures me that she has been on her Eliquis on a daily basis for the past several weeks since April 2017. As best we can tell she has had no interruptions. TSH is normal. I recommend that we continue Toprol, hydrochlorothiazide, and Eliquis at this time. Once her potassium magnesium have been replaced, we may consider elective DC cardioversion. As the patient has hypomagnesemia and hypokalemia in the presence of hydrochlorothiazide therapy, recommend daily potassium 10 mEq p.o. daily. In addition I recommend increasing her Toprol-XL to 50 mg twice daily to get better rate control. Patient may benefit from some IV Lasix 40 mg ?1 to facilitate diuresis given her pulmonary hypertension. Her echocardiogram shows no evidence of bacterial vegetations and her white count is within normal limits. I do not believe she requires a ARELIS to evaluate her bioprosthetic aortic valve replacement at this time. 2. Will confer with Dr. sharpe for you about proceeding with DC cardioversion tomorrow. 3. Thank you very much for the opportunity to participate in the cardiac care of your patient. Consultation time took place between 1030 and 11 AM. Code Visit Inpatient E&M: 75159 Init Hosp L2
--- NOTE | 2017-07-26 12:55 | CON.PCM_ITS ---
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 Ledezma, last seen in the office on 02/02/17 with a history of severe aortic stenosis status post T AVR procedure in April 2017, previous echocardiogram demonstrated preserved LV function with a mean gradient of 44 mmHg. Patient also is a history of paroxysmal atrial fibrillation and is on chronic beta-piter and anticoagulation therapy with Eliquis. The patient was doing well up until the last few days to week when she developed productive cough, sputum, with associated shortness of breath but no palpitations or angina. Patient apparently went to go see Dr. Garcia yesterday she was found to be tachycardic and EKG showed atrial flutter with rapid ventricular response. She was sent from Dr. Garcia's office to the emergency room where she was then admitted for cardiac care given the lateness of the hour and the snow. Patient denied any chest pain or angina, denies any presyncope, syncope, fevers or chills. An echocardiogram done this morning to evaluate her prosthetic aortic valve demonstrated preserved LV function with an EF around 65%, mild left atrial enlargement, moderate to severe 3+ posteriorly directed mitral regurgitation, RVSP of at least 50 mmHg consistent with moderate pulmonary hypertension. Patient had no evidence of bacterial vegetations on her aortic valve. The patient was found to be hypokalemic and hypomagnesemic and those are being replaced right now. Patient is stable in bed, no acute distress. [] Past Medical History Allergies/Adverse Reactions: Allergies No Known Allergies Allergy (Verified 06/12/17 09:41) Home Medications: Ambulatory Orders Medication Instructions Recorded Ferrous Sulfate 325 mg PO DAILY 02/21/16 apixaban 5 mg tablet 5 mg PO BID #180 tab 05/11/17 metoprolol succinate ER 50 mg 50 mg PO DAILY #90 tab 05/11/17 tablet,extended release 24 hr Levothyroxine [Synthroid] 175 mcg PO DAILY 05/14/17 Magnesium Oxide 400 mg PO DAILY 05/14/17 Sennosides/Docusate Sodium 1 each PO DAILY 05/14/17 [Senna-Docusate Sodium Tablet] glipiZIDE [Glucotrol] 5 mg PO DAILY@0730 05/14/17 Ondansetron [Zofran Odt] 4 mg PO Q4H PRN PRN #7 tab.rapdis 05/15/17 Potassium Chloride [K-Dur] 40 meq PO BID 10 Days tab 05/15/17 Lisinopril [Zestril] 5 mg PO DAILY 07/26/17 Pantoprazole Sodium 40 mg PO DAILY@72907/26/17 Past Medical History (Chronic Problems): Chronic Problems (Last Updated 07/26/17 @ 10:51 by Bandar Oseguera MD) DM2 (diabetes mellitus, type 2) (Chronic) Atherosclerosis of curyung coronary 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 TAVR April 2017 Psychiatric History: No pertinent psych hx - *Family History Paternal Family History: Family History (Last Updated 06/12/17 @ 09:42 by Gladis Clifton) Son Myocardial infarction, Onset Age: 56 History Items: - - father with cancer. Sibling Family History: Family History (Last Updated 06/12/17 @ 09:42 by Gladis Clifton) Son Myocardial infarction, Onset Age: 56 Lives: Spouse/ Significant Other Smoking Status: Never smoker Tobacco Use: Non-smoker Alcohol: None Drugs: None Review of Systems - Review of Systems General: Denies: Fever, Night Sweats, Fatigue Cardiovascular: Reports: Shortness of Breath, Shortness of Breath with Exertion , Palpitations. Denies: Chest Discomfort, Orthopnea, PND, Peripheral Edema, Lightheadedness, Dizziness, Near Syncope, Syncope Respiratory: Reports: Cough, Sputum Production. Denies: Hemoptysis Gastrointestinal: Denies: Hematemesis, Hematochezia, Melena Genitourinary: Denies: Dysuria, Hematuria Skin: Denies: Rash Subjectve: Patient laying in bed, no acute distress. Patient atrial flutter with 2-1 conduction. Objective: Vital Signs Temp Pulse Resp BP Pulse Ox 97.9 F 112 H 16 141/78 H 94 07/26/17 09:38 07/26/17 11:13 07/26/17 09:38 07/26/17 09:38 07/26/17 09:38 Oxygen Delivery Method Room Air Weight: 172 lb 9.951 oz Body Mass Index (BMI) 30.5 Intake and Output for Last 24 Hours 07/24/17 07/25/17 07/26/17 23:59 23:59 23:59 Intake Total 680 / 680 Balance 680 / 680 General: Awake, Alert, Oriented x 3 HEENT: PERRL, EOMI, Sclera Non Icteric Neck: Supple, Good ROM, No Lymph Node Enlargement Lungs: Clear to auscultation Cardiovascular: Irregular Rhythm, Normal S1, Normal S2, No Rubs, No Gallops Murmur Murmur: Grade 3/6, Holosystolic Vascular: No Carotid Bruits, Normal Femoral Pulses, Normal Radial Pulses, Normal Dorsalis Pedal Pulse, Normal Posterior Tibial Pulses Abdomen: Bowel Sounds Present, Soft, Non Tender, No HSM, No Organomegaly Extremities: No Cyanosis, No Clubbing, No edema Neurological: No Focal Motor or Sensory Deficit 07/25/17 22:49: Troponin I 0.22 H 07/26/17 01:20: Troponin I 0.22 H 07/26/17 06:30: Sodium 138, Potassium 3.1 L, Chloride 100, Carbon Dioxide 29.0, Anion Gap 9, BUN 16, Creatinine 0.92, Est GFR (MDRD) Af Amer 75, Est GFR (MDRD) Non-Af 62, BUN/Creatinine Ratio 17.5, Glucose 117 H, Calcium 8.8 07/26/17 06:30: Magnesium 1.4 L Rhythm: EKG: ECHO: Stress Test: Cardiac Cath: PCI: CT Surgery: Holter monitor: EPS: PPM: CXR: Chest CT Scan: Assessment/Plan 1. Atrial flutter: Patient is on chronic Eliquis therapy for her paroxysmal atrial fibrillation, and on Toprol-XL 50 mg p.o. daily. She is hypomagnesemic and hypokalemic at this time, and has evidence of at least moderate pulmonary hypertension. She is on hydrochlorothiazide 25 mg p.o. daily at home. According to the patient's daughter, patient's other daughter monitors her medications and assures me that she has been on her Eliquis on a daily basis for the past several weeks since April 2017. As best we can tell she has had no interruptions. TSH is normal. I recommend that we continue Toprol, hydrochlorothiazide, and Eliquis at this time. Once her potassium magnesium have been replaced, we may consider elective DC cardioversion. As the patient has hypomagnesemia and hypokalemia in the presence of hydrochlorothiazide therapy, recommend daily potassium 10 mEq p.o. daily. In addition I recommend increasing her Toprol-XL to 50 mg twice daily to get better rate control. Patient may benefit from some IV Lasix 40 mg ?1 to facilitate diuresis given her pulmonary hypertension. Her echocardiogram shows no evidence of bacterial vegetations and her white count is within normal limits. I do not believe she requires a ARELIS to evaluate her bioprosthetic aortic valve replacement at this time. 2. Will confer with Dr. sharpe for you about proceeding with DC cardioversion tomorrow. 3. Thank you very much for the opportunity to participate in the cardiac care of your patient. Consultation time took place between 1030 and 11 AM. Code Visit Inpatient E&M: 47908 Init Hosp L2
--- NOTE | 2017-07-26 12:56 | EKG12_ITS ---
Test Reason : AFIB Blood Pressure : / mmHG Vent. Rate : 150 BPM Atrial Rate : 300 BPM P-R Int : 000 ms QRS Dur : 080 ms QT Int : 330 ms P-R-T Axes : 000 -61 151 degrees QTc Int : 521 ms Atrial flutter Left axis deviation Inferior infarct , age undetermined Abnormal ECG When compared with ECG of 26-JUL-2017 13:24, MANUAL COMPARISON REQUIRED, DATA IS UNCONFIRMED Confirmed by KEVIN TRINIDAD, SAVANAH ([id number]), general expeditor IRASEMA GRIDER ([id number]) on 07/28/2017 3:04:31 PM Referred By: KYLE Confirmed By:SAVANAH BROWN MD
--- NOTE | 2017-07-26 13:30 | NURSING ---
This RN was notified that patient was not feeling well and EKG was showing SVT. Vitals obtained at this time and paged Dr. Orr and Dr. Bhatti for cardioversion at bedside. Family members in room to obtain signed consent. turbine blade assembler and Caro loading supervisor aware and at bedside. Patient transferred to ICU after cardioversion.
--- NOTE | 2017-07-26 13:39 | CASEMGMT ---
JOSE FRANCISCO MERLOS assessment deferred due to patient condition. Patient with heart rate in the 150's, hypotensive. Chart reviewed. Patient lives with dtr and has a first floor set-up. Patient reported to therapy that patient ambulates without device, independent with ADLs, tub baths, raised toilet seat. Patient's goal per therapy is to return home. Patient is established with Dr. Amado for PCP, Dr. Garcia for pulmonary and Dr. Jean for cardiology. JOSE FRANCISCO MERLOS will follow-up with patient tomorrow to begin transition planning. Damaris Saenz, BSN, RN-BC, CCM
[2017-07-26] MEDS: Adenosine 6 MG/2 ML Syringe 18 MG IV (13:49)
[2017-07-26] MEDS: Propofol 200 MG/20 ML Vial 20 MG IV BOLUS ×2 (13:57)
[2017-07-26 14:05] LABS: Bedside Glucose 176 mg/dL (70-110)
--- NOTE | 2017-07-26 14:07 | NURSING ---
Called report to Yolie FELTON in ICU
[2017-07-26] MEDS: Piperacil/Tazobactam 3.375 GM/50 ML ML IV ×2 (15:14→21:34)
[2017-07-26] MEDS: 0.9% NaCl IVPB Med Flush (250 mL) 15 ML IV (15:45)
[2017-07-26 15:54] LABS: M R Staph aureus DNA By PCR Negative (Negative); Probe Check PASS; Specimen Processing Control PASS
--- NOTE | 2017-07-26 16:05 | EKG12_ITS ---
Test Reason : AFIB Blood Pressure : / mmHG Vent. Rate : 154 BPM Atrial Rate : 058 BPM P-R Int : 000 ms QRS Dur : 080 ms QT Int : 282 ms P-R-T Axes : 000 -54 141 degrees QTc Int : 451 ms Supraventricular tachycardia Atrial flutter with 2:1 Left axis deviation Marked ST abnormality, possible inferior subendocardial injury Abnormal ECG When compared with ECG of 26-JUL-2017 05:24, MANUAL COMPARISON REQUIRED, DATA IS UNCONFIRMED Confirmed by KEVIN TRINIDAD, SAVANAH ([id number]), welder/fitter IRASEMA GRIDER ([id number]) on 07/28/2017 3:05:09 PM Referred By: KYLE Confirmed By:SAVANAH BROWN MD
--- NOTE | 2017-07-26 16:44 | PCM.CON.CC ---
Problem List (1) Acute on chronic diastolic CHF (congestive heart failure) Status: Suspected (2) Atrial fibrillation with RVR Status: Acute (3) Pleural effusion Status: Acute (4) DM2 (diabetes mellitus, type 2) Status: Chronic Qualifiers: Diabetes mellitus intermediate teacher insulin use: without intermediate teacher use Diabetes mellitus complication status: with unspecified complications Qualified Code(s): E11.8 - Type 2 diabetes mellitus with unspecified complications (5) Atherosclerosis of eek coronary artery of eek heart without angina pectoris Status: Chronic (6) Bronchiectasis Status: Chronic (7) Nonrheumatic aortic (valve) stenosis Status: Chronic Comment: NIK 0.71cm2 per echo 09/08/2016; S/P TAVR with 26 Veronique S3 valve 04/10/2017 @ [facility]; (8) Paroxysmal atrial fibrillation Status: Chronic (9) Benign essential hypertension Status: Chronic (10) Hypothyroidism Status: Chronic (11) Diet-controlled type 2 diabetes mellitus Status: Chronic (12) Iron deficiency anemia Status: Chronic (13) Pulmonary HTN Status: Chronic Reason for Consult Date of Consultation: 07/26/17 Reason for Consultation: Cardiogenic shock History of Present Illness: The patient is a 81 year old F, with past medical history listed below, who presented to [facility] on 07/25/2017 when she was found to be in a flutter with RVR on presenting to Dr. Garcia's office. Patient reportedly has a history of severe aortic stenosis status post TAVR procedure in April 2017. Patient did have preserved ejection fraction at that time. Over the last couple weeks, patient has reported a productive cough, sputum and associated shortness of breath. Patient went to see Dr. paulino yesterday and was noted to be in A. fib with RVR so was sent in for evaluation. Initially on presentation, patient was doing well on room air in echocardiogram showed moderate to severe mitral regurgitation with an RVSP of 50 mmHg and an EF of 65%. I was called emergently to the patient's room at approximately 2 PM today secondary to a flutter with RVR and hypotension with a blood pressure of 57/32. On presentation, patient had already received a fluid bolus from Dr. Orr, but did have a heart rate of approximate 144 bpm. Blood pressure did improve after fluid bolus. Patient was given 6 mg of adenosine with confirmation of a flutter. After consultation with Dr. Orr, the patient was then given 40 mg of propofol for sedation. Patient did receive a synchronized cardioversion at 200 J that was successful in achieving normal sinus rhythm. Patient was transferred to the intensive care unit for further monitoring. After arrival on the intensive care unit, patient reported significant improvement in overall symptoms. Patient continues to have a productive cough, but is saturating well on room air. Patient has come back positive for RSV. Patient reportedly does have a history of bronchiectasis and has grown Pseudomonas in the past. Patient is also receiving electrolyte repletion. Review of systems is otherwise negative ?10 systems Past Medical History Past Medical History (Chronic Problems): Chronic Problems (Last Updated 07/26/17 @ 10:51 by Bandar Oseguera MD) DM2 (diabetes mellitus, type 2) (Chronic) Atherosclerosis of eek coronary artery of eek heart without angina pectoris (Chronic) Bronchiectasis (Chronic) history of near-syncope (Chronic) Nonrheumatic aortic (valve) stenosis (Chronic) NIK 0.71cm2 per echo 09/08/2016; S/P TAVR with 26 Veronique S3 valve 04/10/2017 @ [facility]; Paroxysmal atrial fibrillation (Chronic) Benign essential hypertension (Chronic) Hypothyroidism (Chronic) Diet-controlled type 2 diabetes mellitus (Chronic) Iron deficiency anemia (Chronic) Pulmonary HTN (Chronic) Allergies No Known Allergies Allergy (Verified 06/12/17 09:41) Home Medications: Ambulatory Orders Medication Instructions Recorded Ferrous Sulfate 325 mg PO DAILY 02/21/16 apixaban 5 mg tablet 5 mg PO BID #180 tab 05/11/17 metoprolol succinate ER 50 mg 50 mg PO DAILY #90 tab 05/11/17 tablet,extended release 24 hr Levothyroxine [Synthroid] 175 mcg PO DAILY 05/14/17 Magnesium Oxide 400 mg PO DAILY 05/14/17 Sennosides/Docusate Sodium 1 each PO DAILY 05/14/17 [Senna-Docusate Sodium Tablet] glipiZIDE [Glucotrol] 5 mg PO DAILY@0730 05/14/17 Ondansetron [Zofran Odt] 4 mg PO Q4H PRN PRN #7 tab.rapdis 05/15/17 Potassium Chloride [K-Dur] 40 meq PO BID 10 Days tab 05/15/17 Lisinopril [Zestril] 5 mg PO DAILY 07/26/17 Pantoprazole Sodium 40 mg PO DAILY@0730 07/26/17 Surgical History: - - hysterectemy in 1974. TAVR April 2017 Psychiatric History: No pertinent psych hx Lives: Spouse/ Significant Other Smoking Status: Never smoker Tobacco Use: Non-smoker Alcohol: None Drugs: None - *Family History Paternal History Items: - - father with cancer. Review of Systems Comment: See HPI Patient Problems: Active and Suspected Problems (Last Updated 07/26/17 @ 10:51 by Bandar Oseguera MD) Acute on chronic diastolic CHF (congestive heart failure) (Suspected) Atrial fibrillation with RVR (Acute) Pleural effusion (Acute) Objective: Chest x-ray was personally reviewed. Agree with formal interpretation. Left greater than right pleural effusion were appreciated. - Physical Exam General: Alert, Oriented x3, Cooperative, No apparent distress, - - Appears stated age. Speaking in full sentences. HEENT: Atraumatic, PERRLA, EOMI, Normocephalic, - - Right scleral injection without icterus Oral: Moist Mucosa, No Gingival or Mucosal Lesions/ Ulcerations Neck: Supple, No JVD, No Nodes Lungs: No rhonchi, Diminished, Rales - Scattered, Wheezes - Left greater than right, - - Metric expansion. No dullness to percussion. Cardiovascular: Regular rate, Regular Rhythm, Normal S1, Normal S2, Murmur - Grade 3 out of 6 systolic ejection murmur at the apex, No rub noted, No Gallop Abdomen: Bowel Sounds Present, Soft, Non Tender, Non-Distended Extremities: No clubbing, No cyanosis, No edema, Capillary Refill Less than 3 Seconds Skin: No rashes, No breakdown Musculoskeletal: No Tenderness to Palpation of Joints or Extremities Lymphatic: No Cervical, Supraclavicular, or Inguinal Adenopathy Neurological: Cranial nerves II-XII grossly intact, Neuro grossly intact, Motor Exam 5/5 strength throughout Psych/Mental Status: Alert and oriented to time, place, person, mood and affect Vital Signs Temp Pulse Resp BP Pulse Ox 36.7 C 71 20 H 103/51 L 93 07/26/17 16:00 07/26/17 16:00 07/26/17 16:00 07/26/17 16:00 07/26/17 16:00 Oxygen Flow Rate (L/min) 3 Oxygen Delivery Method Room Air Weight: 78.3 kg Body Mass Index (BMI) 30.5 Intake and Output for Last 24 Hours 07/24/17 07/25/17 07/26/17 23:59 23:59 23:59 Intake Total 680 / 680 Balance 680 / 680 Microbiology Past 72 Hours 07/26/17 08:45 Gram Stain - Final Sputum, Expectorated/Coughed 07/26/17 10:15 Respiratory Panel (PCR) - Final Mucosa - Nose RSV B Laboratory Tests Past 24 Hrs 07/25/17 07/26/17 07/26/17 22:49 01:20 06:30 Sodium 138 Potassium 3.1 L Chloride 100 Carbon Dioxide 29.0 Anion Gap 9 BUN 16 Creatinine 0.92 Estim Creat Clear Calc 39.00 Est GFR (MDRD) Af Amer 75 Est GFR (MDRD) Non-Af 62 BUN/Creatinine Ratio 17.5 Glucose 117 H Calcium 8.8 Magnesium Troponin I 0.22 H 0.22 H TSH 0.41 MRSA (PCR) 07/26/17 07/26/17 06:30 14:20 Sodium Potassium Chloride Carbon Dioxide Anion Gap BUN Creatinine Estim Creat Clear Calc Est GFR (MDRD) Af Amer Est GFR (MDRD) Non-Af BUN/Creatinine Ratio Glucose Calcium Magnesium 1.4 L Troponin I TSH MRSA (PCR) Negative POC Glucose 07/26/17 07/26/17 13:44 06:48 POC Glucose 176 H 119 H Clinical Impression(s) from Imaging Studies Chest X-Ray 07/25/17 17:35 IMPRESSION: Bilateral pleural effusions with subjacent hypoventilatory change at the lung bases. See above. Electronically Signed: Anh Piedra MD at 19:03 EDT Tel , Service support , Assessment/Plan Active and Suspected Problems (Last Updated 07/26/17 @ 10:51 by Bandar Oseguera MD) Acute on chronic diastolic CHF (congestive heart failure) (Suspected) Atrial fibrillation with RVR (Acute) Pleural effusion (Acute) RECOMMENDATIONS: 1. Aggressive electrolyte repletion 2. Continue with telemetry monitoring 3. Continue Zosyn therapy for now until culture data available 4. Possibly add systemic steroids if wheezing persists tomorrow IMPRESSIONS: 1. Cardiogenic shock secondary to atrial flutter with RVR Patient with a documented blood pressure of 57/32. Patient did eventually receive emergent cardioversion with conscious sedation. Patient appears to be much improved now that she is in sinus rhythm. Stimulus was likely RSV with bronchial stimulus. Aggressive electrolyte repletion for hypomagnesemia and hypokalemia is underway. Patient is being diuresed with Lasix per cardiology. Patient is fully anticoagulated with Eliquis. This should be continued. Would defer to cardiology for any antiarrhythmic for cardiac stabilization. 2. Acute on chronic diastolic congestive heart failure Echocardiogram shows significant pulmonary hypertension with mitral valve regurgitation. Patient has received Lasix therapy. Pleural effusion noted on chest x-ray, but this does not appear enough to warrant a thoracentesis at this time. Cardiology is currently following. 3. Acute exacerbation of bronchiectasis secondary to RSV Patient with positive RSV by viral PCR. Some concern for possible translocation of previous Pseudomonas. Will await for sputum cultures prior to discontinuation of antibiotics. Vancomycin is likely not necessary given patient's negative MRSA swab. 4. Hypertension/diabetes mellitus/hypothyroidism/advanced age Complicates care, management, recovery and prognosis. Continue with sliding scale insulin and baseline medications. TIME: 35 minutes critical care time spent addressing patient's cardiogenic shock, bronchiectasis exacerbation, review of all data and collaboration with care team. Code Visit 9xxxx: [id number] Critical care first hour
[2017-07-26 16:51] LABS: Bedside Glucose 124 mg/dL (70-110)
--- NOTE | 2017-07-26 16:59 | CON.PCM_ITS ---
Problem List (1) Acute on chronic diastolic CHF (congestive heart failure) Status: Suspected (2) Atrial fibrillation with RVR Status: Acute (3) Pleural effusion Status: Acute (4) DM2 (diabetes mellitus, type 2) Status: Chronic Qualifiers: Diabetes mellitus rat exterminator insulin use: without rat exterminator use Diabetes mellitus complication status: with unspecified complications Qualified Code(s) : E11.8 - Type 2 diabetes mellitus with unspecified complications (5) Atherosclerosis of [place] coronary artery of [place] heart without angina pectoris Status: Chronic (6) Bronchiectasis Status: Chronic (7) Nonrheumatic aortic (valve) stenosis Status: Chronic Comment: NIK 0.71cm2 per echo 09/08/2016; S/P TAVR with 26 Veronique S3 valve 04/10/[address] [facility]; (8) Paroxysmal atrial fibrillation Status: Chronic (9) Benign essential hypertension Status: Chronic (10) Hypothyroidism Status: Chronic (11) Diet-controlled type 2 diabetes mellitus Status: Chronic (12) Iron deficiency anemia Status: Chronic (13) Pulmonary HTN Status: Chronic Reason for Consult Date of Consultation: 07/26/17 Reason for Consultation: Cardiogenic shock History of Present Illness: The patient is a 81 year old F, with past medical history listed below, who presented to [facility] on 07/25/2017 when she was found to be in a flutter with RVR on presenting to Dr. Garcia's office. Patient reportedly has a history of severe aortic stenosis status post TAVR procedure in April 2017. Patient did have preserved ejection fraction at that time. Over the last couple weeks, patient has reported a productive cough, sputum and associated shortness of breath. Patient went to see Dr. paulino yesterday and was noted to be in A. fib with RVR so was sent in for evaluation. Initially on presentation, patient was doing well on room air in echocardiogram showed moderate to severe mitral regurgitation with an RVSP of 50 mmHg and an EF of 65%. I was called emergently to the patient's room at approximately 2 PM today secondary to a flutter with RVR and hypotension with a blood pressure of 57/32. On presentation, patient had already received a fluid bolus from Dr. Orr, but did have a heart rate of approximate 144 bpm. Blood pressure did improve after fluid bolus. Patient was given 6 mg of adenosine with confirmation of a flutter. After consultation with Dr. Orr, the patient was then given 40 mg of propofol for sedation. Patient did receive a synchronized cardioversion at 200 J that was successful in achieving normal sinus rhythm. Patient was transferred to the intensive care unit for further monitoring. After arrival on the intensive care unit, patient reported significant improvement in overall symptoms. Patient continues to have a productive cough, but is saturating well on room air. Patient has come back positive for RSV. Patient reportedly does have a history of bronchiectasis and has grown Pseudomonas in the past. Patient is also receiving electrolyte repletion. Review of systems is otherwise negative ?10 systems Past Medical History Past Medical History (Chronic Problems): Chronic Problems (Last Updated 07/26/17 @ 10:51 by Bandar Oseguera MD) DM2 (diabetes mellitus, type 2) (Chronic) Atherosclerosis of [place] coronary artery of [place] heart without angina pectoris (Chronic) Bronchiectasis (Chronic) history of near-syncope (Chronic) Nonrheumatic aortic (valve) stenosis (Chronic) NIK 0.71cm2 per echo 09/08/2016; S/P TAVR with 26 Veronique S3 valve 04/10/[address] [facility]; Paroxysmal atrial fibrillation (Chronic) Benign essential hypertension (Chronic) Hypothyroidism (Chronic) Diet-controlled type 2 diabetes mellitus (Chronic) Iron deficiency anemia (Chronic) Pulmonary HTN (Chronic) Allergies No Known Allergies Allergy (Verified 06/12/17 09:41) Home Medications: Ambulatory Orders Medication Instructions Recorded Ferrous Sulfate 325 mg PO DAILY 02/21/16 apixaban 5 mg tablet 5 mg PO BID #180 tab 05/11/17 metoprolol succinate ER 50 mg 50 mg PO DAILY #90 tab 05/11/17 tablet,extended release 24 hr Levothyroxine [Synthroid] 175 mcg PO DAILY 05/14/17 Magnesium Oxide 400 mg PO DAILY 05/14/17 Sennosides/Docusate Sodium 1 each PO DAILY 05/14/17 [Senna-Docusate Sodium Tablet] glipiZIDE [Glucotrol] 5 mg PO DAILY@0730 05/14/17 Ondansetron [Zofran Odt] 4 mg PO Q4H PRN PRN #7 tab.rapdis 05/15/17 Potassium Chloride [K-Dur] 40 meq PO BID 10 Days tab 05/15/17 Lisinopril [Zestril] 5 mg PO DAILY 07/26/17 Pantoprazole Sodium 40 mg PO DAILY@0730 07/26/17 Surgical History: - - hysterectemy in 1974. TAVR April 2017 Psychiatric History: No pertinent psych hx Lives: Spouse/ Significant Other Smoking Status: Never smoker Tobacco Use: Non-smoker Alcohol: None Drugs: None - *Family History Paternal History Items: - - father with cancer. Review of Systems Comment: See HPI Patient Problems: Active and Suspected Problems (Last Updated 07/26/17 @ 10:51 by Bandar Oseguera MD) Acute on chronic diastolic CHF (congestive heart failure) (Suspected) Atrial fibrillation with RVR (Acute) Pleural effusion (Acute) Objective: Chest x-ray was personally reviewed. Agree with formal interpretation. Left greater than right pleural effusion were appreciated. - Physical Exam General: Alert, Oriented x3, Cooperative, No apparent distress, - - Appears stated age. Speaking in full sentences. HEENT: Atraumatic, PERRLA, EOMI, Normocephalic, - - Right scleral injection without icterus Oral: Moist Mucosa, No Gingival or Mucosal Lesions/ Ulcerations Neck: Supple, No JVD, No Nodes Lungs: No rhonchi, Diminished, Rales - Scattered, Wheezes - Left greater than right, - - Metric expansion. No dullness to percussion. Cardiovascular: Regular rate, Regular Rhythm, Normal S1, Normal S2, Murmur - Grade 3 out of 6 systolic ejection murmur at the apex, No rub noted, No Gallop Abdomen: Bowel Sounds Present, Soft, Non Tender, Non-Distended Extremities: No clubbing, No cyanosis, No edema, Capillary Refill Less than 3 Seconds Skin: No rashes, No breakdown Musculoskeletal: No Tenderness to Palpation of Joints or Extremities Lymphatic: No Cervical, Supraclavicular, or Inguinal Adenopathy Neurological: Cranial nerves II-XII grossly intact, Neuro grossly intact, Motor Exam 5/5 strength throughout Psych/Mental Status: Alert and oriented to time, place, person, mood and affect Vital Signs Temp Pulse Resp BP Pulse Ox 36.7 C 71 20 H 103/51 L 93 07/26/17 16:00 07/26/17 16:00 07/26/17 16:00 07/26/17 16:00 07/26/17 16:00 Oxygen Flow Rate (L/min) 3 Oxygen Delivery Method Room Air Weight: 78.3 kg Body Mass Index (BMI) 30.5 Intake and Output for Last 24 Hours 07/24/17 07/25/17 07/26/17 23:59 23:59 23:59 Intake Total 680 / 680 Balance 680 / 680 Microbiology Past 72 Hours 07/26/17 08:45 Gram Stain - Final Sputum, Expectorated/Coughed 07/26/17 10:15 Respiratory Panel (PCR) - Final Mucosa - Nose RSV B Laboratory Tests Past 24 Hrs 07/25/17 07/26/17 07/26/17 22:49 01:20 06:30 Sodium 138 Potassium 3.1 L Chloride 100 Carbon Dioxide 29.0 Anion Gap 9 BUN 16 Creatinine 0.92 Estim Creat Clear Calc 39.00 Est GFR (MDRD) Af Amer 75 Est GFR (MDRD) Non-Af 62 BUN/Creatinine Ratio 17.5 Glucose 117 H Calcium 8.8 Magnesium Troponin I 0.22 H 0.22 H TSH 0.41 MRSA (PCR) 07/26/17 07/26/17 06:30 14:20 Sodium Potassium Chloride Carbon Dioxide Anion Gap BUN Creatinine Estim Creat Clear Calc Est GFR (MDRD) Af Amer Est GFR (MDRD) Non-Af BUN/Creatinine Ratio Glucose Calcium Magnesium 1.4 L Troponin I TSH MRSA (PCR) Negative POC Glucose 07/26/17 07/26/17 13:44 06:48 POC Glucose 176 H 119 H Clinical Impression(s) from Imaging Studies Chest X-Ray 07/25/17 17:35 IMPRESSION: Bilateral pleural effusions with subjacent hypoventilatory change at the lung bases. See above. Electronically Signed: Anh Piedra MD at 19:03 EDT Tel , Service support , Assessment/Plan Active and Suspected Problems (Last Updated 07/26/17 @ 10:51 by Bandar Oseguera MD) Acute on chronic diastolic CHF (congestive heart failure) (Suspected) Atrial fibrillation with RVR (Acute) Pleural effusion (Acute) RECOMMENDATIONS: 1. Aggressive electrolyte repletion 2. Continue with telemetry monitoring 3. Continue Zosyn therapy for now until culture data available 4. Possibly add systemic steroids if wheezing persists tomorrow IMPRESSIONS: 1. Cardiogenic shock secondary to atrial flutter with RVR Patient with a documented blood pressure of 57/32. Patient did eventually receive emergent cardioversion with conscious sedation. Patient appears to be much improved now that she is in sinus rhythm. Stimulus was likely RSV with bronchial stimulus. Aggressive electrolyte repletion for hypomagnesemia and hypokalemia is underway. Patient is being diuresed with Lasix per cardiology. Patient is fully anticoagulated with Eliquis. This should be continued. Would defer to cardiology for any antiarrhythmic for cardiac stabilization. 2. Acute on chronic diastolic congestive heart failure Echocardiogram shows significant pulmonary hypertension with mitral valve regurgitation. Patient has received Lasix therapy. Pleural effusion noted on chest x-ray, but this does not appear enough to warrant a thoracentesis at this time. Cardiology is currently following. 3. Acute exacerbation of bronchiectasis secondary to RSV Patient with positive RSV by viral PCR. Some concern for possible translocation of previous Pseudomonas. Will await for sputum cultures prior to discontinuation of antibiotics. Vancomycin is likely not necessary given patient's negative MRSA swab. 4. Hypertension/diabetes mellitus/hypothyroidism/advanced age Complicates care, management, recovery and prognosis. Continue with sliding scale insulin and baseline medications. TIME: 35 minutes critical care time spent addressing patient's cardiogenic shock, bronchiectasis exacerbation, review of all data and collaboration with care team. Code Visit 9xxxx: [id number] Critical care first hour
[2017-07-26 21:30] LABS: Bedside Glucose 220 mg/dL (70-110)
[2017-07-27] VITALS (21 sets, daily range): BP systolic 91–114; BP diastolic 37–58; PULSE 59–117; RESP 16–21; TEMP 36.2–36.9; O2SAT 93–100
[2017-07-27 04:27] LABS: Absolute Lymphocyte Count 2.37 X10^3/ul (0.83-4.51); Absolute Neutrophil Count 6.4 X10^3/uL (2.0-7.7); Basophil# 0.01 X10^3/uL; Basophil% 0.1 % (0-1); Eosinophil# 0.11 X10^3/uL; Eosinophils% 1.1 % (0-5); Hematocrit 34.5 % (37-47); Lymphocyte # 2.37 X10^3/ul (4.0); Lymphocyte % 23.6 % (19-41); Mean Corp Hgb Conc 31.9 g/gl (32-36); Mean Corpuscular Hgb 29.6 pg (27.0-32.0); Mean Platelet Vol. 9.5 fl (6.2-12.0); Monocyte# 1.16 X10^3/uL; Monocyte% 11.5 % (0-10); Neutrophil # 6.39 X10^3/uL (2.7-7.7); Neutrophil % 63.5 % (47-70); Platelet Count 290 K/mm3 (150-450); RBC Distribution Width CV 15.4 % (11.6-14.6); RBC Distribution Width SD 52.1 fl (35.1-43.9); Red Blood Count 3.71 M/mm3 (4.2-5.4); White Blood Count 10.1 K/mm3 (4.4-11.0)
[2017-07-27 04:28] LABS: POSITIVE COUNT NO; POSITIVE DIFFERENTIAL NO; POSITIVE MORPHOLOGY NO
[2017-07-27 05:05] LABS: Anion Gap 9 (5-15); BUN 29 mg/dL (7-18); BUN/Creat Ratio 18.7 RATIO (10-20); Calcium,Total 8.5 mg/dL (8.5-10.1); Chloride 100 mmol/L (98-107); Creatinine, Serum 1.55 mg/dL (0.55-1.02); EST Glomerular Filtration Rate 34 mL/min (>60); Est Glom Filt Rate - Afr Amer 41 mL/min (>60); Estimated Creatinine Clearance 23.15 ml/min; Glucose 105 mg/dL (74-106); Magnesium 2.7 mg/dL (1.6-2.6); Potassium 3.5 mmol/L (3.5-5.1); Sodium Level 137 mmol/L (136-145)
[2017-07-27] MEDS: Levothyroxine 175 MCG Tablet PO (05:29)
[2017-07-27] MEDS: 0.9% NaCl Peripheral Flush Adult/Peds IV (05:29)
[2017-07-27] MEDS: Piperacil/Tazobactam 3.375 GM/50 ML ML IV ×3 (05:29→22:07)
--- NOTE | 2017-07-27 06:26 | PCM.PN.INT ---
Subjective: Patient did well overnight. No acute issues were reported. Patient's blood pressures have trended down overnight, but patient's mentation appears at baseline. No change in urine output reported. Patient has remained in normal sinus rhythm. Overnight metoprolol was held secondary to blood pressure. Patient remains on room air and denies any productive cough. General: Alert, Oriented x3, Cooperative, No apparent distress, - - Appears stated age. Speaking in full sentences. HEENT: Atraumatic, PERRLA, EOMI, Normocephalic, - - Slight scleral injection without icterus Oral: Moist Mucosa, No Gingival or Mucosal Lesions/ Ulcerations Neck: Supple, No JVD, No Nodes, Trachea Midline Lungs: Clear to auscultation, Normal air movement, No rhonchi, No wheeze, No rales, - - Symmetric expansion. No dullness to percussion. Cardiovascular: Regular rate, Regular Rhythm, Normal S1, Normal S2, Murmur, No rub noted, No Gallop Abdomen: Bowel Sounds Present, Soft, Non Tender, Non-Distended Extremities: No clubbing, No cyanosis, No edema, Capillary Refill Less than 3 Seconds Skin: No rashes, No breakdown Musculoskeletal: No Tenderness to Palpation of Joints or Extremities Lymphatic: No Cervical, Supraclavicular, or Inguinal Adenopathy Neurological: Cranial nerves II-XII grossly intact, Neuro grossly intact Psych/Mental Status: Alert and oriented to time, place, person, mood and affect Vital Signs Temp Pulse Resp BP Pulse Ox 36.8 C 60 19 H 111/54 L 94 07/27/17 06:00 07/27/17 06:00 07/27/17 06:00 07/27/17 06:00 07/27/17 06:00 Oxygen Flow Rate (L/min) 3 Oxygen Delivery Method Room Air Weight: 77.1 kg Body Mass Index (BMI) 30.5 Intake and Output for Last 24 Hours 07/25/17 07/26/17 07/27/17 23:59 23:59 23:59 Intake Total 1751 / 1751 207 / 207 Output Total 500 / 500 150 / 150 Balance 1251 / 1251 57 / 57 Labs (Last 48 Hours) 07/25/17 07/26/17 07/26/17 22:49 01:20 06:30 WBC RBC Hgb Hct MCV MCH MCHC RDW RDW Differential Plt Count MPV Immature Gran % (Auto) Neut % (Auto) Lymph % (Auto) [place] % (Auto) Eos % (Auto) Baso % (Auto) Absolute Neuts (auto) Absolute Lymphs (auto) Total Counted Sodium 138 Potassium 3.1 L Chloride 100 Carbon Dioxide 29.0 Anion Gap 9 BUN 16 Creatinine 0.92 Estim Creat Clear Calc 39.00 Est GFR (MDRD) Af Amer 75 Est GFR (MDRD) Non-Af 62 BUN/Creatinine Ratio 17.5 Glucose 117 H Calcium 8.8 Magnesium Troponin I 0.22 H 0.22 H TSH 0.41 MRSA (PCR) POC Glucose 07/26/17 07/26/17 07/26/17 06:30 06:48 13:44 WBC RBC Hgb Hct MCV MCH MCHC RDW RDW Differential Plt Count MPV Immature Gran % (Auto) Neut % (Auto) Lymph % (Auto) [place] % (Auto) Eos % (Auto) Baso % (Auto) Absolute Neuts (auto) Absolute Lymphs (auto) Total Counted Sodium Potassium Chloride Carbon Dioxide Anion Gap BUN Creatinine Estim Creat Clear Calc Est GFR (MDRD) Af Amer Est GFR (MDRD) Non-Af BUN/Creatinine Ratio Glucose Calcium Magnesium 1.4 L Troponin I TSH MRSA (PCR) POC Glucose 119 H 176 H 07/26/17 07/26/17 07/26/17 14:20 16:42 21:23 WBC RBC Hgb Hct MCV MCH MCHC RDW RDW Differential Plt Count MPV Immature Gran % (Auto) Neut % (Auto) Lymph % (Auto) [place] % (Auto) Eos % (Auto) Baso % (Auto) Absolute Neuts (auto) Absolute Lymphs (auto) Total Counted Sodium Potassium Chloride Carbon Dioxide Anion Gap BUN Creatinine Estim Creat Clear Calc Est GFR (MDRD) Af Amer Est GFR (MDRD) Non-Af BUN/Creatinine Ratio Glucose Calcium Magnesium Troponin I TSH MRSA (PCR) Negative POC Glucose 124 H 220 H 07/27/17 07/27/17 04:20 04:20 WBC 10.1 RBC 3.71 L Hgb 11.0 L Hct 34.5 L MCV 93.0 MCH 29.6 MCHC 31.9 L RDW 15.4 H RDW Differential 52.1 H Plt Count 290 MPV 9.5 Immature Gran % (Auto) 0.200 Neut % (Auto) 63.5 Lymph % (Auto) 23.6 [place] % (Auto) 11.5 H Eos % (Auto) 1.1 Baso % (Auto) 0.1 Absolute Neuts (auto) 6.4 Absolute Lymphs (auto) 2.37 Total Counted Not Reportable Sodium 137 Potassium 3.5 Chloride 100 Carbon Dioxide 28.0 Anion Gap 9 BUN 29 H Creatinine 1.55 H Estim Creat Clear Calc 23.15 Est GFR (MDRD) Af Amer 41 L Est GFR (MDRD) Non-Af 34 L BUN/Creatinine Ratio 18.7 Glucose 105 Calcium 8.5 Magnesium 2.7 H Troponin I TSH MRSA (PCR) POC Glucose Microbiology 07/26/17 08:45 Sputum, Expectorated/Coughed Gram Stain - Final 07/26/17 10:15 Mucosa - Nose Respiratory Panel (PCR) - Final RSV B Medical Necessity - Tobacco Use Smoking Status: Never smoker Tobacco Use: Non-smoker Assessment/Plan Active and Suspected Problems (Last Updated 07/26/17 @ 10:51 by Bandar Oseguera MD) Acute on chronic diastolic CHF (congestive heart failure) (Suspected) Atrial fibrillation with RVR (Acute) Pleural effusion (Acute) RECOMMENDATIONS: 1. Likely hold on diuresis 2. Continue with telemetry monitoring 3. Discontinue Zosyn therapy when culture negative at 48 hours 4. No systemic steroids at this time 5. Defer to cardiology on if patient can leave the intensive care unit IMPRESSIONS: 1. Cardiogenic shock secondary to atrial flutter with RVR Patient with a documented blood pressure of 57/32. Patient did eventually receive emergent cardioversion with conscious sedation. Patient appears to be much improved now that she is in sinus rhythm. Stimulus was likely RSV with bronchial stimulus. She remains fully anticoagulated without any bleeding complications. Patient remains in normal sinus rhythm with acceptable electrolytes. 2. Acute on chronic diastolic congestive heart failure Echocardiogram shows significant pulmonary hypertension with mitral valve regurgitation. Patient has received Lasix therapy, but creatinine is elevated and this may need to be held. Pleural effusion noted on chest x-ray, but this does not appear enough to warrant a thoracentesis at this time. Cardiology is currently following. 3. Acute exacerbation of bronchiectasis secondary to RSV Patient with positive RSV by viral PCR. Some concern for possible translocation of previous Pseudomonas. His sputum culture is negative at 48 hours, discontinuation of Zosyn is likely appropriate. 4. Hypertension/diabetes mellitus/hypothyroidism/advanced age Complicates care, management, recovery and prognosis. Continue with sliding scale insulin and baseline medications. Code Visit Inpatient E&M: 12746 Subs Hosp L3
[2017-07-27 06:55] LABS: Bedside Glucose 113 mg/dL (70-110)
[2017-07-27] MEDS: Ferrous Sulfate 325 MG Tablet PO (07:57)
--- NOTE | 2017-07-27 08:04 | EKG12_ITS ---
Test Reason : MORNING EKG Blood Pressure : / mmHG Vent. Rate : 083 BPM Atrial Rate : 300 BPM P-R Int : 000 ms QRS Dur : 100 ms QT Int : 406 ms P-R-T Axes : 097 -07 093 degrees QTc Int : 477 ms Atrial flutter with variable A-V block Nonspecific ST and T wave abnormality Prolonged QT Abnormal ECG When compared with ECG of 25-JUL-2017 17:07, MANUAL COMPARISON REQUIRED, DATA IS UNCONFIRMED Confirmed by KEVIN TRINIDAD, SAVANAH ([id number]), pictures editor IRASEMA GRIDER ([id number]) on 07/28/2017 3:08:09 PM Referred By: KYLE Confirmed By:SAVANAH BROWN MD
[2017-07-27] MEDS: glipiZIDE 5 MG Tablet PO (08:15)
--- NOTE | 2017-07-27 08:39 | PCM.PN.CARD ---
Subjectve: Patient seen and evaluated. Doing much better today. Objective: Vital Signs Temp Pulse Resp BP Pulse Ox 97.2 F L 61 20 H 96/50 L 95 07/27/17 08:00 07/27/17 08:00 07/27/17 08:00 07/27/17 08:00 07/27/17 08:00 Oxygen Flow Rate (L/min) 3 Oxygen Delivery Method Room Air Weight: 169 lb 15.622 oz Body Mass Index (BMI) 30.5 Intake and Output for Last 24 Hours 07/25/17 07/26/17 07/27/17 23:59 23:59 23:59 Intake Total 1751 / 1751 207 / 207 Output Total 500 / 500 150 / 150 Balance 1251 / 1251 57 / 57 General: Awake, Alert, Oriented x 3 HEENT: PERRL, EOMI, Sclera Non Icteric Neck: Supple, Good ROM, No Lymph Node Enlargement Lungs: Clear to auscultation Cardiovascular: Regular Rhythm, Normal S1, Normal S2, No Rubs, No Gallops Murmur Murmur: Grade 2/6, Holosystolic, [place] Vascular: No Carotid Bruits, Normal Femoral Pulses, Normal Radial Pulses, Normal Dorsalis Pedal Pulse, Normal Posterior Tibial Pulses Abdomen: Bowel Sounds Present, Soft, Non Tender, No HSM, No Organomegaly Extremities: No Cyanosis, No Clubbing, No edema Neurological: No Focal Motor or Sensory Deficit 07/26/17 06:30: Magnesium 1.4 L 07/27/17 04:20: WBC 10.1, RBC 3.71 L, Hgb 11.0 L, Hct 34.5 L, MCV 93.0, MCH 29.6, MCHC 31.9 L, RDW 15.4 H, RDW Differential 52.1 H, Plt Count 290, MPV 9.5, Immature Gran % (Auto) 0.200, Neut % (Auto) 63.5, Lymph % (Auto) 23.6, [place] % (Auto) 11.5 H, Eos % (Auto) 1.1, Baso % (Auto) 0.1, Absolute Neuts (auto) 6.4, Total Counted Not Reportable 07/27/17 04:20: Sodium 137, Potassium 3.5, Chloride 100, Carbon Dioxide 28.0, Anion Gap 9, BUN 29 H, Creatinine 1.55 H, Est GFR (MDRD) Af Amer 41 L, Est GFR (MDRD) Non-Af 34 L, BUN/Creatinine Ratio 18.7, Glucose 105, Calcium 8.5, Magnesium 2.7 H Rhythm: EKG: ECHO: Stress Test: Cardiac Cath: PCI: CT Surgery: Holter monitor: EPS: PPM: CXR: Chest CT Scan: Medical Necessity - Tobacco Use Smoking Status: Never smoker Tobacco Use: Non-smoker Assessment/Plan 1. Paroxysmal atrial flutter. Patient developed symptomatic atrial flutter and underwent emergency DC cardioversion yesterday with prompt reversal to sinus rhythm. Patient has maintained sinus rhythm overnight. Had 2 episodes of brief SVT in the night. Her blood pressure remains marginal and for now I would decide to hold her beta-piter. We will reevaluate at about noon. She will continue on anticoagulation in the meantime. Her echocardiogram demonstrated preserved left ventricular ejection fraction. 2. Status post bioprosthetic aortic valve replacement via T AVR. Was evaluated via echocardiogram and was noted to be well situated with no regurgitation. No vegetations were also noted. We will continue to monitor. 3. Mitral valve disease. 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 She would need to be on diuretics especially as she has pulmonary artery systolic pressures in the 50s. At this time there are no plans to intervene on this lesion. We will continue to follow and preload reduce. 4. Hypertension Blood pressure appears to be under good control. I will suggest holding the beta-piter and the JIGNESH inhibitor at this time and we will reevaluate this. Creatinine appears to be mildly elevated. We will continue to follow closely. Electrolytes would also be monitored. Thank you for allowing me to participate in the care of your patient. Please don't hesitate to call if any issues arise. She can be transferred to the progressive care unit.
--- NOTE | 2017-07-27 08:42 | PN.CARD_ITS ---
Subjectve: Patient seen and evaluated. Doing much better today. Objective: Vital Signs Temp Pulse Resp BP Pulse Ox 97.2 F L 61 20 H 96/50 L 95 07/27/17 08:00 07/27/17 08:00 07/27/17 08:00 07/27/17 08:00 07/27/17 08:00 Oxygen Flow Rate (L/min) 3 Oxygen Delivery Method Room Air Weight: 169 lb 15.622 oz Body Mass Index (BMI) 30.5 Intake and Output for Last 24 Hours 07/25/17 07/26/17 07/27/17 23:59 23:59 23:59 Intake Total 1751 / 1751 207 / 207 Output Total 500 / 500 150 / 150 Balance 1251 / 1251 57 / 57 General: Awake, Alert, Oriented x 3 HEENT: PERRL, EOMI, Sclera Non Icteric Neck: Supple, Good ROM, No Lymph Node Enlargement Lungs: Clear to auscultation Cardiovascular: Regular Rhythm, Normal S1, Normal S2, No Rubs, No Gallops Murmur Murmur: Grade 2/6, Holosystolic, [place] Vascular: No Carotid Bruits, Normal Femoral Pulses, Normal Radial Pulses, Normal Dorsalis Pedal Pulse, Normal Posterior Tibial Pulses Abdomen: Bowel Sounds Present, Soft, Non Tender, No HSM, No Organomegaly Extremities: No Cyanosis, No Clubbing, No edema Neurological: No Focal Motor or Sensory Deficit 07/26/17 06:30: Magnesium 1.4 L 07/27/17 04:20: WBC 10.1, RBC 3.71 L, Hgb 11.0 L, Hct 34.5 L, MCV 93.0, MCH 29.6 , MCHC 31.9 L, RDW 15.4 H, RDW Differential 52.1 H, Plt Count 290, MPV 9.5, Immature Gran % (Auto) 0.200, Neut % (Auto) 63.5, Lymph % (Auto) 23.6, [place] % ( Auto) 11.5 H, Eos % (Auto) 1.1, Baso % (Auto) 0.1, Absolute Neuts (auto) 6.4, Total Counted Not Reportable 07/27/17 04:20: Sodium 137, Potassium 3.5, Chloride 100, Carbon Dioxide 28.0, Anion Gap 9, BUN 29 H, Creatinine 1.55 H, Est GFR (MDRD) Af Amer 41 L, Est GFR ( MDRD) Non-Af 34 L, BUN/Creatinine Ratio 18.7, Glucose 105, Calcium 8.5, Magnesium 2.7 H Rhythm: EKG: ECHO: Stress Test: Cardiac Cath: PCI: CT Surgery: Holter monitor: EPS: PPM: CXR: Chest CT Scan: Medical Necessity - Tobacco Use Smoking Status: Never smoker Tobacco Use: Non-smoker Assessment/Plan 1. Paroxysmal atrial flutter. Patient developed symptomatic atrial flutter and underwent emergency DC cardioversion yesterday with prompt reversal to sinus rhythm. Patient has maintained sinus rhythm overnight. Had 2 episodes of brief SVT in the night. Her blood pressure remains marginal and for now I would decide to hold her beta- piter. We will reevaluate at about noon. She will continue on anticoagulation in the meantime. Her echocardiogram demonstrated preserved left ventricular ejection fraction. 2. Status post bioprosthetic aortic valve replacement via T AVR. Was evaluated via echocardiogram and was noted to be well situated with no regurgitation. No vegetations were also noted. We will continue to monitor. 3. Mitral valve disease. 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 She would need to be on diuretics especially as she has pulmonary artery systolic pressures in the 50s. At this time there are no plans to intervene on this lesion. We will continue to follow and preload reduce. 4. Hypertension Blood pressure appears to be under good control. I will suggest holding the beta-piter and the JIGNESH inhibitor at this time and we will reevaluate this. Creatinine appears to be mildly elevated. We will continue to follow closely. Electrolytes would also be monitored. Thank you for allowing me to participate in the care of your patient. Please don't hesitate to call if any issues arise. She can be transferred to the progressive care unit.
--- NOTE | 2017-07-27 08:46 | PN_ITS ---
Patient Problems: Active and Suspected Problems (Last Updated 07/26/17 @ 10:51 by Bandar Oseguera MD) Acute on chronic diastolic CHF (congestive heart failure) (Suspected) Atrial fibrillation with RVR (Acute) Pleural effusion (Acute) Subjective: Follow-up after admission for A. Flutter with RVR with hemodynamic instability status post cardioversion, suspected acute on chronic diastolic CHF, bilateral pleural effusion, borderline elevated troponin and probable acute exacerbation of bronchiectasis. Patient seen and examined. No acute events overnight. She remained in sinus rhythm overnight but according to nursing staff, she had short runs of SVTs ?2. Patient denies any more shortness of breath, still complaining of mild cough with clear sputum. She denied chest pain, palpitation, dizziness or lightheadedness. She is feeling significantly better. Her blood pressure has been borderline at times, other vital signs are stable. - Physical Exam General: Alert, Oriented x3, Cooperative, No apparent distress HEENT: Atraumatic, PERRLA, EOMI Oral: Moist Mucosa, No Gingival or Mucosal Lesions/ Ulcerations Neck: Supple, No JVD, Negative Carotid Bruits, Trachea Midline, Thyroid Normal Size and Texture Lungs: Clear to auscultation, No rhonchi, No wheeze, No rales, Diminished, - - Decreased breath sounds at the bases, otherwise clear. Cardiovascular: Regular rate, Regular Rhythm, Normal S1, Normal S2, PMI Normal Abdomen: Bowel Sounds Present, Soft, Non Tender, Non-Distended, No Hepato- splenomegaly Extremities: No clubbing, No cyanosis, No edema Skin: No rashes, No breakdown Lymphatic: No Cervical, Supraclavicular, or Inguinal Adenopathy Neurological: Cranial nerves II-XII grossly intact, Motor Exam 5/5 strength throughout Psych/Mental Status: Normal Affect, Appropriate, Alert and oriented to time, place, person, mood and affect Vital Signs Temp Pulse Resp BP Pulse Ox 97.2 F L 61 20 H 96/50 L 95 07/27/17 08:00 07/27/17 08:00 07/27/17 08:00 07/27/17 08:00 07/27/17 08:00 Oxygen Flow Rate (L/min) 3 Oxygen Delivery Method Room Air Weight: 169 lb 15.622 oz Body Mass Index (BMI) 30.5 Intake and Output for Last 24 Hours 07/25/17 07/26/17 07/27/17 23:59 23:59 23:59 Intake Total 1751 / 1751 207 / 207 Output Total 500 / 500 150 / 150 Balance 1251 / 1251 57 / 57 Microbiology Past 72 Hours 07/26/17 08:45 Gram Stain - Final Sputum, Expectorated/Coughed 07/26/17 10:15 Respiratory Panel (PCR) - Final Mucosa - Nose RSV B Laboratory Tests Past 24 Hrs 07/26/17 07/26/17 07/27/17 06:30 14:20 04:20 WBC 10.1 RBC 3.71 L Hgb 11.0 L Hct 34.5 L MCV 93.0 MCH 29.6 MCHC 31.9 L RDW 15.4 H RDW Differential 52.1 H Plt Count 290 MPV 9.5 Immature Gran % (Auto) 0.200 Neut % (Auto) 63.5 Lymph % (Auto) 23.6 [place] % (Auto) 11.5 H Eos % (Auto) 1.1 Baso % (Auto) 0.1 Absolute Neuts (auto) 6.4 Absolute Lymphs (auto) 2.37 Total Counted Not Reportable Sodium Potassium Chloride Carbon Dioxide Anion Gap BUN Creatinine Estim Creat Clear Calc Est GFR (MDRD) Af Amer Est GFR (MDRD) Non-Af BUN/Creatinine Ratio Glucose Calcium Magnesium 1.4 L MRSA (PCR) Negative 07/27/17 04:20 WBC RBC Hgb Hct MCV MCH MCHC RDW RDW Differential Plt Count MPV Immature Gran % (Auto) Neut % (Auto) Lymph % (Auto) [place] % (Auto) Eos % (Auto) Baso % (Auto) Absolute Neuts (auto) Absolute Lymphs (auto) Total Counted Sodium 137 Potassium 3.5 Chloride 100 Carbon Dioxide 28.0 Anion Gap 9 BUN 29 H Creatinine 1.55 H Estim Creat Clear Calc 23.15 Est GFR (MDRD) Af Amer 41 L Est GFR (MDRD) Non-Af 34 L BUN/Creatinine Ratio 18.7 Glucose 105 Calcium 8.5 Magnesium 2.7 H MRSA (PCR) POC Glucose 07/27/17 07/26/17 07/26/17 06:50 21:23 16:42 POC Glucose 113 H 220 H 124 H 07/26/17 13:44 POC Glucose 176 H Medical Necessity - Tobacco Use Smoking Status: Never smoker Tobacco Use: Non-smoker Assessment/Plan Active and Suspected Problems (Last Updated 07/26/17 @ 10:51 by Bandar Oseguera MD) Acute on chronic diastolic CHF (congestive heart failure) (Suspected) Atrial fibrillation with RVR (Acute) Pleural effusion (Acute) This is an 81 years old female patient presented to the medicine because of shortness of breath and productive cough over the last couple of weeks and she was found to have atrial flutter with RVR with hemodynamic instability/ cardiogenic shock status post cardioversion, bilateral pleural effusion more on the left side, acute on chronic diastolic CHF and acute exacerbation of bronchiectasis. #1 atrial flutter with RVR/hemodynamic instability/cardiogenic shock: Status post cardioversion that was done yesterday, patient remained in sinus rhythm with couple of short runs of SVTs overnight. Her vital signs this morning has been stable, heart rate is in the 70s, in sinus rhythm, blood pressure stable and has been borderline overnight. She is on metoprolol for rate control and Eliquis for anticoagulation. 2D echocardiogram revealed ejection fraction of 65 %, moderate pulmonary hypertension, moderately severe mitral insufficiency. Serum potassium and magnesium are normal today, replaced and corrected. Cardiology as well as critical care on the case. Plan: Transfer to PCU. #2 acute on chronic diastolic CHF: She is on IV Lasix as well as metoprolol and lisinopril. Symptoms improved, pulse ox has been normal on room air. 2D echocardiogram reviewed as above, ejection fraction 65%. Vital signs are stable. Her creatinine went up to 1.55, it was 0.93 yesterday and this is likely because of IV Lasix in addition to hypotension yesterday. Plan to continue IV Lasix, repeat BMP tomorrow morning. #3 acute exacerbation of bronchiectasis: Secondary to viral infection with RSV. She is on IV Zosyn. She is afebrile, no leukocytosis, white blood cell count is normal. Sputum culture is pending. Her pulse ox is normal on room air. #4 borderline elevated troponin: This is likely due to demand ischemia secondary to A. fib/flutter with RVR. Status post cardioversion, he has been in sinus rhythm. She has no more chest pain. 2D echocardiogram reviewed as above. #5 aortic valve stenosis status post TAVR: This was done on April, for severe aortic stenosis. 2D echocardiogram revealed stable appearing bioprosthetic aortic valve apparatus. #6 hypertension: Blood pressure stable, continue lisinopril, metoprolol and IV Lasix. #7 type 2 diabetes mellitus: Blood sugar stable, continue ADA diet, Accu-Cheks, insulin sliding scale, continue glipizide. #8 hypothyroidism: Levothyroxine. TSH is normal. #9 DVT prophylaxis: Continue Eliquis. This note was generated with [employer] dictation software. It may contain incorrect words, spelling, and punctuation that were not noted in checking the note before signing. Code Visit Inpatient E&M: 22271 Subs Hosp L2
[2017-07-27] MEDS: Senna/Docusate Sodium 1 Tablet PO (09:30)
[2017-07-27] MEDS: Pantoprazole Sodium 40 MG Tablet PO (09:30)
[2017-07-27] MEDS: APIXABAN 5 MG TABLET PO ×2 (09:30→22:07)
[2017-07-27] MEDS: Furosemide 40 MG Tablet PO (09:30)
[2017-07-27] MEDS: guaiFENesin 600 MG Tablet PO ×2 (09:30→22:07)
[2017-07-27 12:01] LABS: Bedside Glucose 127 mg/dL (70-110)
[2017-07-27] MEDS: 0.9% NaCl IVPB Med Flush (250 mL) 15 ML IV (13:50)
[2017-07-27 17:30] LABS: Bedside Glucose 68 mg/dL (70-110)
[2017-07-27 22:45] LABS: Bedside Glucose 225 mg/dL (70-110)
[2017-07-28] VITALS (8 sets, daily range): BP systolic 95–116; BP diastolic 36–58; PULSE 57–64; RESP 16; TEMP 35.4–36.4; O2SAT 94–99
[2017-07-28] MEDS: Levothyroxine 175 MCG Tablet PO (06:29)
[2017-07-28] MEDS: Piperacil/Tazobactam 3.375 GM/50 ML ML IV (06:29)
[2017-07-28 07:10] LABS: Bedside Glucose 99 mg/dL (70-110)
--- NOTE | 2017-07-28 08:04 | PCM.PN.INT ---
Subjective: Patient transferred out of the intensive care unit yesterday. No acute issues were reported overnight by the patient, but patient's blood pressures have been marginal. No intervention was required. Patient does remain on room air. Patient continues to have a productive cough and believes incentive spirometer and Acapella are helpful. General: Alert, Oriented x3, Cooperative, No apparent distress, - - Appears stated age. Speaking in full sentences. HEENT: Atraumatic, PERRLA, EOMI, Normocephalic, - - No scleral icterus or injection noted. Oral: Moist Mucosa, No Gingival or Mucosal Lesions/ Ulcerations Neck: Supple, No JVD, No Nodes, Trachea Midline Lungs: No wheeze, No rales, Diminished, Rhonchi - Improves with cough, - - Symmetric expansion Cardiovascular: Regular rate, Regular Rhythm, Normal S1, Normal S2, No murmurs, No rub noted, No Gallop, - - Normal sinus rhythm noted on telemetry Abdomen: Bowel Sounds Present, Soft, Non Tender, Non-Distended Extremities: No clubbing, No cyanosis, No edema, Capillary Refill Less than 3 Seconds Skin: No rashes, No breakdown Musculoskeletal: No Tenderness to Palpation of Joints or Extremities Lymphatic: No Cervical, Supraclavicular, or Inguinal Adenopathy Neurological: Cranial nerves II-XII grossly intact, Neuro grossly intact, Motor Exam 5/5 strength throughout Psych/Mental Status: Normal Affect, Appropriate Vital Signs Temp Pulse Resp BP Pulse Ox 35.4 C L 57 L 16 111/45 L 97 07/28/17 06:27 07/28/17 07:16 07/28/17 06:27 07/28/17 06:27 07/28/17 06:27 Oxygen Flow Rate (L/min) 3 Oxygen Delivery Method Room Air Weight: 77.8 kg Body Mass Index (BMI) 30.5 Intake and Output for Last 24 Hours 07/26/17 07/27/17 07/28/17 23:59 23:59 23:59 Intake Total 1751 / 1751 708 / 708 410 / 410 Output Total 500 / 500 150 / 150 Balance 1251 / 1251 558 / 558 410 / 410 Labs (Last 48 Hours) 07/26/17 07/26/17 07/26/17 06:30 13:44 14:20 WBC RBC Hgb Hct MCV MCH MCHC RDW RDW Differential Plt Count MPV Immature Gran % (Auto) Neut % (Auto) Lymph % (Auto) [place] % (Auto) Eos % (Auto) Baso % (Auto) Absolute Neuts (auto) Absolute Lymphs (auto) Total Counted Sodium Potassium Chloride Carbon Dioxide Anion Gap BUN Creatinine Estim Creat Clear Calc Est GFR (MDRD) Af Amer Est GFR (MDRD) Non-Af BUN/Creatinine Ratio Glucose Calcium Magnesium 1.4 L MRSA (PCR) Negative POC Glucose 176 H 07/26/17 07/26/17 07/27/17 16:42 21:23 04:20 WBC 10.1 RBC 3.71 L Hgb 11.0 L Hct 34.5 L MCV 93.0 MCH 29.6 MCHC 31.9 L RDW 15.4 H RDW Differential 52.1 H Plt Count 290 MPV 9.5 Immature Gran % (Auto) 0.200 Neut % (Auto) 63.5 Lymph % (Auto) 23.6 [place] % (Auto) 11.5 H Eos % (Auto) 1.1 Baso % (Auto) 0.1 Absolute Neuts (auto) 6.4 Absolute Lymphs (auto) 2.37 Total Counted Not Reportable Sodium Potassium Chloride Carbon Dioxide Anion Gap BUN Creatinine Estim Creat Clear Calc Est GFR (MDRD) Af Amer Est GFR (MDRD) Non-Af BUN/Creatinine Ratio Glucose Calcium Magnesium MRSA (PCR) POC Glucose 124 H 220 H 07/27/17 07/27/17 07/27/17 04:20 06:50 11:58 WBC RBC Hgb Hct MCV MCH MCHC RDW RDW Differential Plt Count MPV Immature Gran % (Auto) Neut % (Auto) Lymph % (Auto) [place] % (Auto) Eos % (Auto) Baso % (Auto) Absolute Neuts (auto) Absolute Lymphs (auto) Total Counted Sodium 137 Potassium 3.5 Chloride 100 Carbon Dioxide 28.0 Anion Gap 9 BUN 29 H Creatinine 1.55 H Estim Creat Clear Calc 23.15 Est GFR (MDRD) Af Amer 41 L Est GFR (MDRD) Non-Af 34 L BUN/Creatinine Ratio 18.7 Glucose 105 Calcium 8.5 Magnesium 2.7 H MRSA (PCR) POC Glucose 113 H 127 H 03/22/18 03/22/18 03/23/18 17:23 22:06 06:53 WBC RBC Hgb Hct MCV MCH MCHC RDW RDW Differential Plt Count MPV Immature Gran % (Auto) Neut % (Auto) Lymph % (Auto) [place] % (Auto) Eos % (Auto) Baso % (Auto) Absolute Neuts (auto) Absolute Lymphs (auto) Total Counted Sodium Potassium Chloride Carbon Dioxide Anion Gap BUN Creatinine Estim Creat Clear Calc Est GFR (MDRD) Af Amer Est GFR (MDRD) Non-Af BUN/Creatinine Ratio Glucose Calcium Magnesium MRSA (PCR) POC Glucose 68 L 225 H 99 07/28/17 07:45 WBC RBC Hgb Hct MCV MCH MCHC RDW RDW Differential Plt Count MPV Immature Gran % (Auto) Neut % (Auto) Lymph % (Auto) [place] % (Auto) Eos % (Auto) Baso % (Auto) Absolute Neuts (auto) Absolute Lymphs (auto) Total Counted Sodium Pending Potassium Pending Chloride Pending Carbon Dioxide Pending Anion Gap Pending BUN Pending Creatinine Pending Estim Creat Clear Calc Est GFR (MDRD) Af Amer Pending Est GFR (MDRD) Non-Af Pending BUN/Creatinine Ratio Pending Glucose Pending Calcium Pending Magnesium MRSA (PCR) POC Glucose Microbiology 07/26/17 08:45 Sputum, Expectorated/Coughed Gram Stain - Final 07/26/17 08:45 Sputum, Expectorated/Coughed Respiratory Culture - Preliminary Gram negative cocco bacillus 07/26/17 10:15 Mucosa - Nose Respiratory Panel (PCR) - Final RSV B Medical Necessity - Tobacco Use Smoking Status: Never smoker Tobacco Use: Non-smoker Assessment/Plan Active and Suspected Problems (Last Updated 07/26/17 @ 10:51 by Bandar Oseguera MD) Acute on chronic diastolic CHF (congestive heart failure) (Suspected) Atrial fibrillation with RVR (Acute) Pleural effusion (Acute) RECOMMENDATIONS: 1. Would consider completing a seven-day course of antibiotics 2. Continue with telemetry monitoring 3. Sinew Zosyn until sensitivities available 4. No systemic steroids at this time 5. Defer to cardiology on charge timing IMPRESSIONS: 1. Cardiogenic shock secondary to atrial flutter with RVR Patient with marginal blood pressures were reported overnight, but appears to be tolerating this well. Patient remains in normal sinus rhythm. Cardiology is following. BMP is currently pending for evaluation. 2. Acute on chronic diastolic congestive heart failure Echocardiogram shows significant pulmonary hypertension with mitral valve regurgitation. Patient has received Lasix therapy, but creatinine is elevated and this may need to be held. Pleural effusion noted on chest x-ray, but this does not appear enough to warrant a thoracentesis at this time. Cardiology is currently following. 3. Acute exacerbation of bronchiectasis secondary to RSV Patient with positive RSV by viral PCR. Some concern for possible translocation of previous Pseudomonas. Given patient's marginal blood pressure and limited reserve, would recommend treating with a seven-day course of antibiotics. Await sensitivities prior to transition to p.o. alternative, as Pseudomonas does have high resistance patterns. 4. Hypertension/diabetes mellitus/hypothyroidism/advanced age Complicates care, management, recovery and prognosis. Continue with sliding scale insulin and baseline medications. Code Visit Inpatient E&M: 65415 Subs Hosp L2
[2017-07-28 08:08] LABS: Anion Gap 10 (5-15); BUN 31 mg/dL (7-18); BUN/Creat Ratio 20.5 RATIO (10-20); Calcium,Total 8.3 mg/dL (8.5-10.1); Chloride 105 mmol/L (98-107); Creatinine, Serum 1.51 mg/dL (0.55-1.02); EST Glomerular Filtration Rate 35 mL/min (>60); Est Glom Filt Rate - Afr Amer 42 mL/min (>60); Estimated Creatinine Clearance 23.76 ml/min; Glucose 98 mg/dL (74-106); Sodium Level 141 mmol/L (136-145)
--- NOTE | 2017-07-28 08:15 | PCM.PN.CARD ---
Subjectve: Patient was seen and evaluated. Appears to be much better today. Had only a short run of a supraventricular tachyarrhythmia asymptomatic. Objective: Vital Signs Temp Pulse Resp BP Pulse Ox 95.7 F L 57 L 16 111/45 L 97 07/28/17 06:27 07/28/17 07:16 07/28/17 06:27 07/28/17 06:27 07/28/17 06:27 Oxygen Flow Rate (L/min) 3 Oxygen Delivery Method Room Air Weight: 171 lb 8.314 oz Body Mass Index (BMI) 30.5 Intake and Output for Last 24 Hours 07/26/17 07/27/17 07/28/17 23:59 23:59 23:59 Intake Total 1751 / 1751 708 / 708 410 / 410 Output Total 500 / 500 150 / 150 Balance 1251 / 1251 558 / 558 410 / 410 General: Awake, Alert, Oriented x 3 HEENT: PERRL, EOMI, Sclera Non Icteric Neck: Supple, Good ROM, No Lymph Node Enlargement Lungs: Clear to auscultation Cardiovascular: Regular Rhythm, Normal S1, Normal S2, No Rubs, No Gallops Murmur Murmur: Grade 2/6, Holosystolic, [place] Vascular: No Carotid Bruits, Normal Femoral Pulses, Normal Radial Pulses, Normal Dorsalis Pedal Pulse, Normal Posterior Tibial Pulses Abdomen: Bowel Sounds Present, Soft, Non Tender, No HSM, No Organomegaly Extremities: No Cyanosis, No Clubbing, No edema Neurological: No Focal Motor or Sensory Deficit 07/28/17 07:45: Sodium 141, Potassium 4.0, Chloride 105, Carbon Dioxide 26.0, Anion Gap 10, BUN 31 H, Creatinine 1.51 H, Est GFR (MDRD) Af Amer 42 L, Est GFR (MDRD) Non-Af 35 L, BUN/Creatinine Ratio 20.5 H, Glucose 98, Calcium 8.3 L Rhythm: occasional SVT EKG:nsr Medical Necessity - Tobacco Use Smoking Status: Never smoker Tobacco Use: Non-smoker Assessment/Plan 1. Paroxysmal atrial flutter. Patient developed symptomatic atrial flutter and underwent emergency DC cardioversion yesterday with prompt reversal to sinus rhythm. Patient has maintained sinus rhythm overnight. Had 1 episodes of brief SVT last night. Her blood pressure is better now and her beta-piter will be resumed. She will continue on anticoagulation in the meantime. Her echocardiogram demonstrated preserved left ventricular ejection fraction. 2. Status post bioprosthetic aortic valve replacement via T AVR. Was evaluated via echocardiogram and was noted to be well situated with no regurgitation. No vegetations were also noted. We will continue to monitor. 3. Mitral valve disease. 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 She would need to be on diuretics especially as she has pulmonary artery systolic pressures in the 50s. At this time there are no plans to intervene on this lesion. We will continue to follow and preload reduce. 4. Hypertension Blood pressure appears to be under good control. I will suggest resuming the beta-piter and the JIGNESH inhibitor can be started as an outpatient Creatinine appears to be mildly elevated. We will continue to follow closely. Electrolytes would also be monitored. Thank you for allowing me to participate in the care of your patient. Please don't hesitate to call if any issues arise. She can be discharged and followed up as an outpatient. Above discussed with the patient relatives as well as hospitalist.
[2017-07-28] MEDS: Metoprolol Tartrate 25 MG Tablet PO (08:39)
[2017-07-28] MEDS: glipiZIDE 5 MG Tablet PO (08:39)
[2017-07-28] MEDS: Ferrous Sulfate 325 MG Tablet PO (08:39)
[2017-07-28] MEDS: APIXABAN 5 MG TABLET PO (08:39)
[2017-07-28] MEDS: Furosemide 40 MG Tablet PO (08:39)
[2017-07-28] MEDS: Senna/Docusate Sodium 1 Tablet PO (08:40)
[2017-07-28] MEDS: Pantoprazole Sodium 40 MG Tablet PO (08:40)
[2017-07-28] MEDS: guaiFENesin 600 MG Tablet PO (08:40)
--- NOTE | 2017-07-28 09:26 | PCM.DC ---
- Discharge Diagnoses Current Active Problems: Current Active and Chronic Problems (Last Updated 07/26/17 @ 10:51 by Bandar Oseguera MD) Atrial fibrillation with RVR (Acute) Pleural effusion (Acute) DM2 (diabetes mellitus, type 2) (Chronic) You will use the following diet at home:: Calorie/Carbohydrate Controlled (specify 1200, 1400, etc) - 1800 [place], Cardiac Your food should be the consistency of: Regular Discharge Activity: Return to Normal Activity Weight Bearing Status: Weight bearing as tolerated Call your doctor if you observe: Fever of 101 or Higher, Shortness of breath, Dizziness, Fainting spells, Chest pain, Increased palpitations (irregular heartbeat), Uncontrolled pain Allergies/Adverse Reactions: Allergies No Known Allergies Allergy (Verified 06/12/17 09:41) Medications to take at Discharge Ferrous Sulfate 325 mg PO DAILY 02/21/16 apixaban 5 mg tablet 5 mg PO BID #180 tab 05/11/17 Levothyroxine [Synthroid] 175 mcg PO DAILY 05/14/17 Magnesium Oxide 400 mg PO DAILY 05/14/17 Sennosides/Docusate Sodium [Senna-Docusate Sodium Tablet] 1 each PO DAILY 05/14/17 glipiZIDE [Glucotrol] 5 mg PO DAILY@0730 05/14/17 Ondansetron [Zofran Odt] 4 mg PO Q4H PRN PRN #7 tab.rapdis 05/15/17 Pantoprazole Sodium 40 mg PO DAILY@0730 07/26/17 Ciprofloxacin [Cipro] 500 mg PO BID #14 tab 07/28/17 Furosemide [Lasix] 40 mg PO DAILY #30 tab 07/28/17 Metoprolol Tartrate [Lopressor (beta piter)] 25 mg PO BID #90 tab 07/28/17 Potassium Chloride [K-Dur] 20 meq PO DAILY 14 Days tab 07/28/17 The following prescriptions were given: Furosemide [Lasix] 40 mg PO DAILY #30 tab Potassium Chloride [K-Dur] 20 meq PO DAILY 14 Days tab Ciprofloxacin [Cipro] 500 mg PO BID #14 tab Metoprolol Tartrate [Lopressor (beta piter)] 25 mg PO BID #90 tab Primary Care Physician: Jacky Amado MD [Primary Care Provider] - Please follow up with your Primary Care Physician in: 1 week. Please Follow Up With: Ted,[place], MD When: 2-3 weeks.
--- NOTE | 2017-07-28 11:08 | CASEMGMT ---
Patient denies need for Home Health Care. Patient has assistance at home and has a large family. No further needs anticipated. FRANCHESCA MarteN, RN-BC, CCM
[2017-07-28 11:16] LABS: Bedside Glucose 150 mg/dL (70-110)
--- NOTE | 2017-07-28 15:15 | PCM.DC.SUM ---
Discharge Date and Diagnosis - Problem List Patient Problems: Active and Suspected Problems (Last Updated 07/26/17 @ 10:51 by Bandar Oseguera MD) Acute on chronic diastolic CHF (congestive heart failure) (Suspected) Date of Admission: 07/25/17 Date of Discharge: 07/28/17 - Primary Discharge Diagnosis Active and Suspected Problems (Last Updated 07/26/17 @ 10:51 by Bandar Oseguera MD) #1 atrial flutter with RVR with hemodynamic instability/cardiac shock, status post cardioversion. #2 acute on chronic diastolic CHF. #3 probable acute exacerbation of bronchiectasis. #4 borderline elevated troponin. #5 bilateral pleural effusion, small, attributed to transudative effusion secondary to CHF. 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 See above. Electronically Signed: Anh Piedra MD at 19:03 EDT Tel , Service support , Operations: None Procedures: 2-D Echocardiogram, Cardioversion, EKG Summary of Care Provided: Patient seen and examined on the day of discharge and appears to be stable to be discharged home. She has no more shortness of breath. She remained in sinus rhythm and her vital signs have been stable. She still complaining of cough with minimal sputum which is chronic. Vital signs are stable. - Physical Exam General: Alert, Oriented x3, Cooperative, No apparent distress. HEENT: Atraumatic, PERRLA, EOMI. Neck: Supple, No JVD, Negative Carotid Bruits, Trachea Midline, Thyroid Normal. Lungs: Decreased breath sounds at the bases, rhonchi, No wheeze, No rales. Cardiovascular: Regular rate, Regular Rhythm, Normal S1, Normal S2, PMI Normal. Abdomen: Bowel Sounds Present, Soft, Non Tender, Non-Distended, No Hepato-splenomegaly. Extremities: No clubbing, No cyanosis, No edema Skin: No rashes, No breakdown Neurological: Neuro grossly intact Vital Signs are stable. Hospital course: The patient is a 81 year old F admitted because of shortness of breath and productive cough that has been progressively increasing over the last couple of weeks before admission and she was found to have a flutter with RVR as well as acute on chronic diastolic CHF and acute exacerbation of bronchiectasis. Patient was admitted to PCU and started on IV Lasix for diuresis as well as bronchodilators. On the first day post admission, patient's heart rate went to very high and she became hypotensive, sweaty and pale. Initially, we thought that she may have SVT for which she received 1 dose of IV adenosine without improvement. Patient had bedside cardioversion for atrial flutter with RVR and hemodynamic instability as well as cardiogenic shock. She returned back to sinus rhythm. She was transferred to ICU and remained 1 night in the intensive care unit. She remains in sinus rhythm and she was continued on bronchodilators, IV Lasix and IV Zosyn for bronchiectasis exacerbation. Sputum culture revealed Haemophilus influenza. Her troponin was slightly elevated which is attributed to demand ischemia due to A. fib/flutter with RVR as well as cardioversion. 2D echocardiogram revealed ejection fraction of 65%, RVSP of 50, moderate pulmonary hypertension and stable appearing bioprosthetic aortic valve apparatus. Patient had a history of aortic valve replacement with bioprosthetic valve. Her creatinine went up to 1.51 because of IV Lasix. Her other routine blood work was unremarkable. She remains in sinus rhythm and her vital signs remained stable overnight. Today, she was started on metoprolol 25 mg p.o. twice daily. Patient discharged home in a stable medical condition, discharged on metoprolol for rate control for A. fib/flutter, continued on Eliquis for anticoagulation, started on ciprofloxacin for acute exacerbation of bronchiectasis, lisinopril discontinued, order given to repeat BMP in 1 week, continued on her other chronic home medication without any changes, plan is to follow-up with PCP in 1 week and follow-up with cardiology in 2-3 weeks. Discharge Activity: Return to Normal Activity Weight Bearing Status: Weight bearing as tolerated Call your doctor if you observe: Fever of 101 or Higher, Shortness of breath, Dizziness, Fainting spells, Chest pain, Increased palpitations (irregular heartbeat), Uncontrolled pain Home Medications: Medications to take at Discharge Ferrous Sulfate 325 mg PO DAILY 02/21/16 apixaban 5 mg tablet 5 mg PO BID #180 tab 05/11/17 Levothyroxine [Synthroid] 175 mcg PO DAILY 05/14/17 Magnesium Oxide 400 mg PO DAILY 05/14/17 Sennosides/Docusate Sodium [Senna-Docusate Sodium Tablet] 1 each PO DAILY 05/14/17 glipiZIDE [Glucotrol] 5 mg PO DAILY@0730 05/14/17 Ondansetron [Zofran Odt] 4 mg PO Q4H PRN PRN #7 tab.rapdis 05/15/17 Pantoprazole Sodium 40 mg PO DAILY@0730 07/26/17 Ciprofloxacin [Cipro] 500 mg PO BID #14 tab 07/28/17 Furosemide [Lasix] 40 mg PO DAILY #30 tab 07/28/17 Metoprolol Tartrate [Lopressor (beta piter)] 25 mg PO BID #90 tab 07/28/17 Potassium Chloride [K-Dur] 20 meq PO DAILY 14 Days tab 07/28/17 Following Prescrptions Were Given to Patient: Furosemide [Lasix] 40 mg PO DAILY #30 tab Potassium Chloride [K-Dur] 20 meq PO DAILY 14 Days tab Ciprofloxacin [Cipro] 500 mg PO BID #14 tab Metoprolol Tartrate [Lopressor (beta piter)] 25 mg PO BID #90 tab Primary Care Physician: Jacky Amado MD [Primary Care Provider] - Please follow up with your Primary Care Physician in: 1 week. Please Follow Up With: Yony Hewitt NP-C When: 2-3 weeks. Please Follow Up With: Jacky Amado MD Disposition: Home Minutes spent on discharge:: 34 Patient Condition:: Stable Medical Necessity - Tobacco Use Smoking Status: Never smoker Tobacco Use: Non-smoker Meaningful Use Info Meaningful Use Diagnoses (Choose all that apply): CHF - CHF JIGNESH/ARB ordered at discharge?: No Reason JIGNESH/ARB not ordered?: Worsening renal function Documented LVEF (%): 65 Code Visit Inpatient E&M: 60116 Disch Hosp
--- NOTE | 2017-07-28 15:24 | DS.PCM_ITS ---
Discharge Date and Diagnosis - Problem List Patient Problems: Active and Suspected Problems (Last Updated 07/26/17 @ 10:51 by Bandar Oseguera MD) Acute on chronic diastolic CHF (congestive heart failure) (Suspected) Date of Admission: 07/25/17 Date of Discharge: 07/28/17 - Primary Discharge Diagnosis Active and Suspected Problems (Last Updated 07/26/17 @ 10:51 by Bandar Oseguera MD) #1 atrial flutter with RVR with hemodynamic instability/cardiac shock, status post cardioversion. #2 acute on chronic diastolic CHF. #3 probable acute exacerbation of bronchiectasis. #4 borderline elevated troponin. #5 bilateral pleural effusion, small, attributed to transudative effusion secondary to CHF. 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 See above. Electronically Signed: Anh Piedra MD at 19:03 EDT Tel , Service support , Operations: None Procedures: 2-D Echocardiogram, Cardioversion, EKG Summary of Care Provided: Patient seen and examined on the day of discharge and appears to be stable to be discharged home. She has no more shortness of breath. She remained in sinus rhythm and her vital signs have been stable. She still complaining of cough with minimal sputum which is chronic. Vital signs are stable. - Physical Exam General: Alert, Oriented x3, Cooperative, No apparent distress. HEENT: Atraumatic, PERRLA, EOMI. Neck: Supple, No JVD, Negative Carotid Bruits, Trachea Midline, Thyroid Normal. Lungs: Decreased breath sounds at the bases, rhonchi, No wheeze, No rales. Cardiovascular: Regular rate, Regular Rhythm, Normal S1, Normal S2, PMI Normal. Abdomen: Bowel Sounds Present, Soft, Non Tender, Non-Distended, No Hepato- splenomegaly. Extremities: No clubbing, No cyanosis, No edema Skin: No rashes, No breakdown Neurological: Neuro grossly intact Vital Signs are stable. Hospital course: The patient is a 81 year old F admitted because of shortness of breath and productive cough that has been progressively increasing over the last couple of weeks before admission and she was found to have a flutter with RVR as well as acute on chronic diastolic CHF and acute exacerbation of bronchiectasis. Patient was admitted to PCU and started on IV Lasix for diuresis as well as bronchodilators. On the first day post admission, patient's heart rate went to very high and she became hypotensive, sweaty and pale. Initially, we thought that she may have SVT for which she received 1 dose of IV adenosine without improvement. Patient had bedside cardioversion for atrial flutter with RVR and hemodynamic instability as well as cardiogenic shock. She returned back to sinus rhythm. She was transferred to ICU and remained 1 night in the intensive care unit. She remains in sinus rhythm and she was continued on bronchodilators , IV Lasix and IV Zosyn for bronchiectasis exacerbation. Sputum culture revealed Haemophilus influenza. Her troponin was slightly elevated which is attributed to demand ischemia due to A. fib/flutter with RVR as well as cardioversion. 2D echocardiogram revealed ejection fraction of 65%, RVSP of 50 , moderate pulmonary hypertension and stable appearing bioprosthetic aortic valve apparatus. Patient had a history of aortic valve replacement with bioprosthetic valve. Her creatinine went up to 1.51 because of IV Lasix. Her other routine blood work was unremarkable. She remains in sinus rhythm and her vital signs remained stable overnight. Today, she was started on metoprolol 25 mg p.o. twice daily. Patient discharged home in a stable medical condition, discharged on metoprolol for rate control for A. fib/flutter, continued on Eliquis for anticoagulation, started on ciprofloxacin for acute exacerbation of bronchiectasis, lisinopril discontinued, order given to repeat BMP in 1 week, continued on her other chronic home medication without any changes, plan is to follow-up with PCP in 1 week and follow-up with cardiology in 2-3 weeks. Discharge Activity: Return to Normal Activity Weight Bearing Status: Weight bearing as tolerated Call your doctor if you observe: Fever of 101 or Higher, Shortness of breath, Dizziness, Fainting spells, Chest pain, Increased palpitations (irregular heartbeat), Uncontrolled pain Home Medications: Medications to take at Discharge Ferrous Sulfate 325 mg PO DAILY 02/21/16 apixaban 5 mg tablet 5 mg PO BID #180 tab 05/11/17 Levothyroxine [Synthroid] 175 mcg PO DAILY 05/14/17 Magnesium Oxide 400 mg PO DAILY 05/14/17 Sennosides/Docusate Sodium [Senna-Docusate Sodium Tablet] 1 each PO DAILY glipiZIDE [Glucotrol] 5 mg PO DAILY@0730 05/14/17 Ondansetron [Zofran Odt] 4 mg PO Q4H PRN PRN #7 tab.rapdis 05/15/17 Pantoprazole Sodium 40 mg PO DAILY@0730 07/26/17 Ciprofloxacin [Cipro] 500 mg PO BID #14 tab 07/28/17 Furosemide [Lasix] 40 mg PO DAILY #30 tab 07/28/17 Metoprolol Tartrate [Lopressor (beta piter)] 25 mg PO BID #90 tab 07/28/17 Potassium Chloride [K-Dur] 20 meq PO DAILY 14 Days tab 07/28/17 Following Prescrptions Were Given to Patient: Furosemide [Lasix] 40 mg PO DAILY #30 tab Potassium Chloride [K-Dur] 20 meq PO DAILY 14 Days tab Ciprofloxacin [Cipro] 500 mg PO BID #14 tab Metoprolol Tartrate [Lopressor (beta piter)] 25 mg PO BID #90 tab Primary Care Physician: Jacky Amado MD [Primary Care Provider] - Please follow up with your Primary Care Physician in: 1 week. Please Follow Up With: Yony Hewitt NP-C When: 2-3 weeks. Please Follow Up With: Jacky Amado MD Disposition: Home Minutes spent on discharge:: 34 Patient Condition:: Stable Medical Necessity - Tobacco Use Smoking Status: Never smoker Tobacco Use: Non-smoker Meaningful Use Info Meaningful Use Diagnoses (Choose all that apply): CHF - CHF JIGNESH/ARB ordered at discharge?: No Reason JIGNESH/ARB not ordered?: Worsening renal function Documented LVEF (%): 65 Code Visit Inpatient E&M: 31474 Disch Hosp
== END 2017-07-28 12:24 | disposition home or self-care (01) | DRG 291 ==
LOC: ED 18:51 → PCU 22:11 → ICU 07-26 15:02 → PCU 07-27 11:14
PROVIDERS: Emergency Provider Emergency Medicine; Family Provider Family Medicine; PCP Family Medicine; Visit Provider Hospitalist
DX: I11.0 Hypertensive heart disease with heart failure (principal); R57.0 Cardiogenic shock; I48.92 Unspecified atrial flutter; I24.8 Other forms of acute ischemic heart disease; E83.42 Hypomagnesemia; B97.4 Respiratory syncytial virus as the cause of diseases classified elsewhere; I27.20 Pulmonary hypertension, unspecified; I48.0 Paroxysmal atrial fibrillation; J47.1 Bronchiectasis with (acute) exacerbation; I50.33 Acute on chronic diastolic (congestive) heart failure; E11.9 Type 2 diabetes mellitus without complications; D50.9 Iron deficiency anemia, unspecified; E03.9 Hypothyroidism, unspecified; E87.6 Hypokalemia; I25.10 Atherosclerotic heart disease of native coronary artery without angina pectoris; Z95.3 Presence of xenogenic heart valve; Z79.899 Other long term (current) drug therapy; Z79.02 Long term (current) use of antithrombotics/antiplatelets; Z79.84 Long term (current) use of oral hypoglycemic drugs
CPT/HCPCS: 36415; 71045; 80048; 80053; 82962; 83735; 83880; 84443; 84484; 85025; 85610; 85730; 87070; 87077; 87205; 87633; 87641; 92960; 93005; 93306; 94667; 94668; 97162; 97165; 97530; 97802; 99285; J7040; J7050; A4216; J0153; J1940

== ENCOUNTER → 2017-08-04 12:43 | Outpatient (CLI) | payer MEDICARE, SELFPAY ==
[2017-08-04 13:26] LABS: Anion Gap 6 (5-15); BUN 33 mg/dL (7-18); BUN/Creat Ratio 27.5 RATIO (10-20); Calcium,Total 8.9 mg/dL (8.5-10.1); Chloride 106 mmol/L (98-107); EST Glomerular Filtration Rate 46 mL/min (>60); Est Glom Filt Rate - Afr Amer 55 mL/min (>60); Glucose 143 mg/dL (74-106); Potassium 4.2 mmol/L (3.5-5.1); Sodium Level 142 mmol/L (136-145)
== END ==
PROVIDERS: Family Provider Family Medicine; PCP Family Medicine; Visit Provider Hospitalist
DX: N17.9 Acute kidney failure, unspecified (principal); T50.1X5A Adverse effect of loop [high-ceiling] diuretics, initial encounter; Y92.9 Unspecified place or not applicable
CPT/HCPCS: 36415; 80048

== ENCOUNTER 2017-09-01 17:46 | Emergency (ER) | payer MEDICARE, SELFPAY ==
[2017-09-01 17:47] VITALS: BP 160/80; PULSE 76; RESP 14; TEMP 36.5; O2SAT 94; BMI 32.5
--- NOTE | 2017-09-01 18:40 | CT_ITS ---
STUDY: CT BRAIN WITHOUT CONTRAST REASON FOR EXAM: Female, 81 years old. Weakness nausea and vomiting times one hour RADIATION DOSAGE (If Supplied By Facility): CTDIvol = ( 44.99 ) mGy, DLP = ( 762.36 ) mGycm TECHNIQUE: Transaxial CT imaging of the brain was performed without administration of intravenous contrast material. Individualized dose optimization techniques were used for this CT. COMPARISON: Prior study of September 08, 2016 FINDINGS: Normal soft tissue structures. Normal calvarium. Normal size ventricles and extra-axial spaces for the patient's age. Normal white matter tracts of the cerebral hemispheres. There is an old tiny lacunar infarct of the left thalamus. Normal brainstem. Normal cerebellum. There is no intracranial hemorrhage. There are no findings of an acute ischemic infarction. There is a polypoid filling defect of the right maxillary sinus. 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 Polypoid filling defect of the right maxillary sinus consistent with a mucoid retention cyst. Is no evidence of intracranial hemorrhage or acute infarct. Electronically Signed: Donovan Lee MD at 19:37 EDT , Service support ,
--- NOTE | 2017-09-01 18:42 | EKG12_ITS ---
Test Reason : SOB Blood Pressure : / mmHG Vent. Rate : 074 BPM Atrial Rate : 074 BPM P-R Int : 186 ms QRS Dur : 090 ms QT Int : 408 ms P-R-T Axes : 076 -11 088 degrees QTc Int : 452 ms Normal sinus rhythm Normal ECG Confirmed by KATLYN LIRA ([id number]), medical transcription editor IRASEMA GRIDER ([id number]) on 09/05/2017 3:57:59 PM Referred By: ALETA Confirmed By:KATLYN LIRA
--- NOTE | 2017-09-01 19:10 | RAD_ITS ---
STUDY: X-RAY CHEST REASON FOR EXAM: Female, 81 years old. Weakness, nausea and vomiting TECHNIQUE: PA and lateral views of the chest. COMPARISON: Previous study of 07/25/2017 FINDINGS: There are fibrotic changes of the lung bases. There is pleural reaction of the lung bases. There is mild cardiac enlargement. There is a transcatheter aortic valve replacement. Normal mediastinum and nathaniel. Normal visualized pulmonary arteries. There are calcified plaques of the aortic arch. There are diffuse degenerative changes of the visualized thoracic spine. Normal visualized ribs, clavicles, and shoulders. There is no demonstrated abnormality of the visualized soft tissue structures of the upper abdomen. RAD/Chest PA and Lateral IMPRESSION: Mild cardiomegaly. There is a transcatheter aortic valve replacement. There are calcified plaques of the aortic arch. There are fibrotic changes of the lung bases. There is bibasilar pleural reaction with hemidiaphragmatic flattening suggesting COPD. Mild diffuse degenerative changes of the thoracic spine. There has been near complete interval resolution of left-sided effusion seen on the previous study. No atelectasis is seen at this time. Electronically Signed: Donovan Lee MD at 19:46 EDT , Service support ,
[2017-09-01 19:15] LABS: Absolute Lymphocyte Count 1.23 X10^3/ul (0.83-4.51); Absolute Neutrophil Count 5.2 X10^3/uL (2.0-7.7); Basophil# 0.03 X10^3/uL; Basophil% 0.4 % (0-1); Eosinophil# 0.11 X10^3/uL; Eosinophils% 1.5 % (0-5); Hematocrit 35.8 % (37-47); Hemoglobin 11.5 g/dl (12.0-15.0); Lymphocyte # 1.23 X10^3/ul (4.0); Lymphocyte % 17.3 % (19-41); Mean Corp Hgb Conc 32.1 g/gl (32-36); Mean Corpuscular Hgb 30.6 pg (27.0-32.0); Mean Corpuscular Volume 95.2 fL (81-99); Mean Platelet Vol. 10.3 fl (6.2-12.0); Monocyte# 0.57 X10^3/uL; Neutrophil # 5.15 X10^3/uL (2.7-7.7); Neutrophil % 72.7 % (47-70); Platelet Count 231 K/mm3 (150-450); RBC Distribution Width CV 14.1 % (11.6-14.6); RBC Distribution Width SD 48.5 fl (35.1-43.9); Red Blood Count 3.76 M/mm3 (4.2-5.4); White Blood Count 7.1 K/mm3 (4.4-11.0)
[2017-09-01 19:20] LABS: POSITIVE COUNT NO; POSITIVE DIFFERENTIAL NO; POSITIVE MORPHOLOGY NO
[2017-09-01 19:28] LABS: Anion Gap 4 (5-15); BUN 24 mg/dL (7-18); BUN/Creat Ratio 24.9 RATIO (10-20); Calcium,Total 8.6 mg/dL (8.5-10.1); Chloride 107 mmol/L (98-107); Creatinine, Serum 0.96 mg/dL (0.55-1.02); EST Glomerular Filtration Rate 59 mL/min (>60); Est Glom Filt Rate - Afr Amer 71 mL/min (>60); Estimated Creatinine Clearance 37.37 ml/min; Glucose 117 mg/dL (74-106); Potassium 3.7 mmol/L (3.5-5.1); Sodium Level 139 mmol/L (136-145)
[2017-09-01] MEDS: Meclizine 12.5 MG Tablet 25 MG PO (19:34)
[2017-09-01 19:59] LABS: Bacteria 0 SEEN /hpf (None Seen); Mucous, Urine 0 SEEN /hpf (<or=2+); Red Blood Cells-Urine 0 SEEN /hpf (0-5)
[2017-09-01 20:02] LABS: Color, Urine Yellow (Yellow); Glucose, Dipstick Normal (Normal); Ketone-Dipstick Negative (Negative); Leukocyte Esterase-Dipstick 25 /ul (Negative); Nitrite-Dipstick Negative (Negative); Occult Blood-Urine Negative /ul (Negative); Protein-Dipstick Negative (Negative); Specific Gravity, Urine 1.005 (1.002-1.030); Urine Bilirubin Dipstick Negative (Negative); Urine Clarity Sl. Cloudy (Clear); Urine Urobilinogen Normal (Normal)
[2017-09-01 20:09] VITALS: BP 164/53; PULSE 81; RESP 16; O2SAT 95
[2017-09-01 21:04] LABS: Squamous Epithelial Cells - UA 0-5 SEEN /hpf (5-10); White Blood Cells 0-5 SEEN /hpf (0-5)
--- NOTE | 2017-09-01 21:19 | ED.VISSUMM ---
- ER Visit Summary Date of Service: 09/01/17 Chief Complaint: Weakness and dizziness History of Present Illness: The patient is a 81 F who presents with weakness and dizziness that began today. Patient describes her dizziness as a spinning sensation. Patient states she developed some nausea after the dizziness began. Patient states the dizziness is worse with head movements. Patient does admit to a mild headache. Patient denies any chest pain or shortness of breath. Patient denies any visual changes. Patient denies any tinnitus or hearing changes. Physical Examination: Vital signs are stable. Patient is afebrile. Patient is in no acute distress. Pupils are equal, round, and reactive to light bilaterally. Extraocular muscles are intact. Conjunctiva is clear. There is no nystagmus noted. Oral mucosa is pink and moist. Neck is supple. Trachea is midline. No JVD or lymphadenopathy. Heart was regular rate and rhythm. Lungs are clear and equal bilaterally. There is good respiratory effort noted. Abdomen is soft. Bowel sounds are normal. There is no tenderness noted. There is no rebound or guarding noted. Cranial nerves II through XII are intact. There are no focal motor or sensory deficits noted. The remaining physical exam is within normal limits. Test Results: CT scan of the brain was obtained. There is no acute process noted. Chest x-ray was obtained and showed evidence of COPD but no acute cardiopulmonary process. EKG showed normal sinus rhythm with a rate of 74. There are no acute ST or T-wave changes. There is no changes compared to previous EKG dated 07/27/2017. CBC showed a mild anemia with hemoglobin of 11.5 and hematocrit 35.8. Urinalysis does not show any evidence of urinary tract infection. Basic metabolic profile was within normal limits. Emergency Department Course and Treatment: Patient was given a dose of meclizine here. Patient felt better on reevaluation. Patient states her dizziness is completely resolved. Patient was given a prescription for meclizine. Patient was instructed to follow-up with her primary care physician in 7-10 days. Patient understood and was agreeable with the plan. All questions were answered. Disposition: Discharge home Impression: Vertigo This note was generated with Meiaojuation software. It may contain incorrect words, spelling, and punctuation that were not noted in review of the chart prior to signing ED Disposition - Plan for ED Patient: Disposition: Home or Assisted Living Chief Complaint: Weakness Diagnosis: Vertigo Instructions: ED Vertigo Unspecified Prescriptions: Meclizine HCl [Antivert] 25 mg PO TID PRN PRN #20 tab PRN Reason: Dizziness Referrals: Jacky Amado DO [Primary Care Provider] -
[2017-09-01 21:46] VITALS: BP 172/64; PULSE 68; RESP 16; O2SAT 97
--- NOTE | 2017-09-01 21:46 | ED.RN ---
REVIEWED D/C INSTRUCTIONS, FOLLOW UP CARE, PRESCRIPTION, AND S/S THAT WOULD WARRANT A RETURN TO THE ED WITH PT. PT VERBALIZED AN UNDERSTANDING AND DENIES FURTHER QUESTIONS FOR THIS RN. PT SKIN P/W/D, RESP EVEN AND UNLABORED, PT A&O X 3, NO DISTRESS NOTED. PT ASSISTED OUT OF ED IN WHEELCHAIR.
== END 2017-09-01 21:47 | disposition home or self-care (01) ==
PROVIDERS: Emergency Provider Emergency Medicine; Family Provider Family Medicine; PCP Family Medicine
DX: R42 Dizziness and giddiness (principal); R11.2 Nausea with vomiting, unspecified; R51 Headache; I50.9 Heart failure, unspecified; R73.03 Prediabetes; E03.9 Hypothyroidism, unspecified; Z79.01 Long term (current) use of anticoagulants; Z79.84 Long term (current) use of oral hypoglycemic drugs; Z79.899 Other long term (current) drug therapy
CPT/HCPCS: 70450; 71046; 80048; 81001; 85025; 93005; 99285; A4216

== ENCOUNTER → 2018-12-12 12:57 | Outpatient (CLI) | payer MEDICARE, SELFPAY ==
[2018-06-13 10:37] VITALS: BMI 31.5
== END ==
PROVIDERS: Family Provider Family Medicine; PCP Family Medicine; Referring Provider Internal Medicine Cardiovascular Disease; Visit Provider Internal Medicine Cardiovascular Disease
DX: I48.0 Paroxysmal atrial fibrillation (principal)
CPT/HCPCS: 93225; 93226

== ENCOUNTER 2019-04-17 09:30 | Emergency (ER) | payer MEDICARE, SELFPAY ==
[2018-12-27 12:52] VITALS: BMI 31.8
[2019-04-17 09:31] VITALS: BP 117/72; PULSE 99; RESP 17; TEMP 36.4; O2SAT 98; BMI 30.1
--- NOTE | 2019-04-17 09:40 | RAD_ITS ---
STUDY: X-RAY - RIGHT FOOT CLINICAL: Female, 83 years old. Pain. TECHNIQUE: 3 view(s) of the foot. COMPARISON: None. FINDINGS: Normal talus, calcaneus, and tarsal bones. Normal visualized subtalar, talonavicular, calcaneocuboid, tarsal and tarsometatarsal articulations. Normal metatarsi. Normal metatarsophalangeal joint of the great toe. Normal tibial and fibular sesamoid bones. Normal interphalangeal joint of the great toe. Normal phalanges of the great toe. Normal second through fifth metatarsophalangeal joints. Normal interphalangeal joints and phalanges of the lesser toes. Soft tissue swelling. RAD/Foot min 3 Views IMPRESSION: Soft tissue swelling. Electronically Signed: Nico Goode, at 10:21 EST , Service support ,
--- NOTE | 2019-04-17 09:55 | ED.DCSUM_ITS ---
- ER Visit Summary Date of Service: 04/17/19 Chief Complaint: Atraumatic right lateral foot pain with swelling and redness History of Present Illness: The patient is a 83 F history of A. fib on Eliquis, diabetic and hypothyroidism. Patient states she has had atraumatic right foot pain since Monday. Denies any history of gout. No fall or trauma. No prior foot surgery. She denies any knee or hip pain. She denies any fever or chills. Physical Examination: Older [facility] female vital signs are stable and afebrile. HEENT exam unremarkable. Lungs clear to auscultation. Heart A. fib rate about 95. No murmur. Abdomen soft nontender normal bowel sounds no peritoneal signs. Patient is moving all 4 extremities. Neurovascular intact. Her right ankle is nontender nonswollen. Her right lateral foot is red mildly swollen and tender. There is no gross bony deformity. Foot is neurovascular intact with normal DP pulse. She is able to wiggle her toes. There is no red streaks. Neurologically she is awake and alert. Test Results: Right foot x-ray 3 views read by myself and the radiologist showed no acute abnormality. Mild soft tissue swelling. CBC shows no acute abnormality. White count 9. Hemoglobin 13. BMP shows history is unremarkable except for potassium of 3.2. Creatinine of 1.46. Uric acid is elevated at 12.1. Consistent with gout. Emergency Department Course and Treatment: Patient has atraumatic right lateral midfoot pain and swelling and redness. She has no history of gout. Exam 12:10 PM patient is doing well. There is been no worsening of the redness or swelling of her foot. Again there is no streaks. I discussed with the patient and the woman with her diagnosis. She will be started on prednisone here for gout and [place] for pain. Given a postop shoe. Treatment Plan: Prednisone 40 g a day for 10 days. [place] for pain. Follow-up with your doctor. They are warned if they see any signs of infection such as worsening of the redness with streaks or fever to return. Disposition: dc Impression: Acute right foot atraumatic pain and swelling secondary to gout This note was generated with HardMetricsation software. It may contain incorrect words, spelling, and punctuation that were not noted in review of the chart prior to signing ED Disposition - Plan for ED Patient: Referrals: Jacyk Amado DO [Primary Care Provider] -
[2019-04-17 10:16] LABS: Absolute Lymphocyte Count 1.62 X10^3/uL (0.83-4.51); Absolute Neutrophil Count 6.8 X10^3/uL (2.0-7.7); Basophil# 0.04 X10^3/uL; Basophil% 0.4 % (0-1); Eosinophil# 0.08 X10^3/uL; Eosinophils% 0.8 % (0-5); Hematocrit 40.5 % (37-47); Hemoglobin 13.8 g/dL (12.0-15.0); Lymphocyte # 1.62 X10^3/ul (4.0); Lymphocyte % 16.9 % (19-41); Mean Corp Hgb Conc 34.1 g/dL (32-36); Mean Corpuscular Hgb 34.3 pg (27.0-32.0); Mean Corpuscular Volume 100.7 fL (81-99); Monocyte# 0.98 X10^3/uL; Monocyte% 10.2 % (0-10); NRBC Flagged by Analyzer 0 % (0-5); Neutrophil % 71.2 % (47-70); Platelet Count 301 K/mm3 (150-450); RBC Distribution Width CV 12.9 % (11.6-14.6); RBC Distribution Width SD 47.6 fl (35.1-43.9); Red Blood Count 4.02 M/mm3 (4.2-5.4); White Blood Count 9.6 K/mm3 (4.4-11.0)
[2019-04-17 10:38] LABS: Anion Gap 7 (5-15); BUN 30 mg/dL (7-18); BUN/Creat Ratio 20.5 RATIO (10-20); Calcium,Total 8.9 mg/dL (8.5-10.1); Chloride 101 mmol/L (98-107); Creatinine, Serum 1.46 mg/dL (0.55-1.02); EST Glomerular Filtration Rate 36 mL/min (>60); Est Glom Filt Rate - Afr Amer 44 mL/min (>60); Estimated Creatinine Clearance 23.73 ml/min; Glucose 138 mg/dL (74-106); Potassium 3.2 mmol/L (3.5-5.1); Sodium Level 139 mmol/L (136-145); Uric Acid 12.1 mg/dL (2.6-6.0)
--- NOTE | 2019-04-17 12:12 | ED.DEP ---
ED Disposition - Plan for ED Patient: Disposition: Home or Assisted Living Instructions: Gouty Arthritis Prescriptions: Prednisone [Deltasone] 40 mg PO DAILY 10 Days tab Prescription Printed Hydrocodone Bitart/Apap 5-325 [[place] 5MG-325MG] 1 tab PO Q4H PRN PRN 5 Days #20 tab PRN Reason: Pain Prescription Printed Referrals: Jacky Amado, [Primary Care Provider] - 1 Week if not improving Additional Instructions: Prednisone 40 mg once a day for the next 10 days for the gout. [place] 1 pill every 4-6 hours as needed for pain. Make sure you are drinking plenty of water, fiber, fruits and vegetables and stool softener as needed to prevent constipation. Follow-up with your doctor if not improving or return to the ER if you develop a fever or worsening redness coming up the leg.
[2019-04-17 12:54] VITALS: BP 139/105; PULSE 99; RESP 18; O2SAT 99
[2019-04-17] MEDS: predniSONE 20 MG Tablet 60 MG PO (12:54)
== END 2019-04-17 13:13 | disposition home or self-care (01) ==
PROVIDERS: Emergency Provider Emergency Medicine; Family Provider Family Medicine; PCP Family Medicine
DX: M10.9 Gout, unspecified (principal); I48.91 Unspecified atrial fibrillation; E11.9 Type 2 diabetes mellitus without complications; E03.9 Hypothyroidism, unspecified; Z79.01 Long term (current) use of anticoagulants; Z79.84 Long term (current) use of oral hypoglycemic drugs; Z79.899 Other long term (current) drug therapy
CPT/HCPCS: 73630; 80048; 84550; 85025; 99285; A4216

== ENCOUNTER → 2020-06-09 11:00 | Outpatient (CLI) | payer MEDICARE, SELFPAY ==
[2020-06-09 10:20] VITALS: BMI 30.8
[2020-06-09 11:26] LABS: Absolute Lymphocyte Count 1.15 X10^3/uL (0.83-4.51); Absolute Neutrophil Count 3.4 X10^3/uL (2.0-7.7); Basophil# 0.05 X10^3/uL; Basophil% 0.9 % (0-1); Eosinophils% 3.7 % (0-5); Hematocrit 40.6 % (37-47); Hemoglobin 13.1 g/dL (12.0-15.0); Lymphocyte # 1.15 X10^3/ul (4.0); Lymphocyte % 21.5 % (19-41); Mean Corp Hgb Conc 32.3 g/dL (32-36); Mean Corpuscular Volume 102.3 fL (81-99); Mean Platelet Vol. 10.4 fl (6.2-12.0); Monocyte# 0.58 X10^3/uL; Monocyte% 10.8 % (0-10); NRBC Flagged by Analyzer 0 % (0-5); Neutrophil # 3.35 X10^3/uL (2.7-7.7); Neutrophil % 62.5 % (47-70); Platelet Count 281 K/mm3 (150-450); RBC Distribution Width CV 13.5 % (11.6-14.6); RBC Distribution Width SD 51.5 fl (35.1-43.9); Red Blood Count 3.97 M/mm3 (4.2-5.4); White Blood Count 5.4 K/mm3 (4.4-11.0)
[2020-06-09 12:01] LABS: Anion Gap 7 (5-15); BUN 19 mg/dL (7-18); BUN/Creat Ratio 18.1 RATIO (10-20); Chloride 105 mmol/L (98-107); Creatinine, Serum 1.05 mg/dL (0.55-1.02); EST Glomerular Filtration Rate 53 mL/min (>60); Est Glom Filt Rate - Afr Amer 64 mL/min (>60); Glucose 103 mg/dL (74-106); Potassium 3.3 mmol/L (3.5-5.1); Sodium Level 140 mmol/L (136-145)
== END ==
PROVIDERS: PCP Family Medicine; Referring Provider Internal Medicine Cardiovascular Disease; Visit Provider Internal Medicine Cardiovascular Disease
DX: R53.83 Other fatigue (principal)
CPT/HCPCS: 36415; 80048; 85025

== ENCOUNTER → 2020-12-08 10:50 | Outpatient (CLI) | payer MEDICARE, SELFPAY ==
[2020-12-08 08:42] VITALS: BMI 31.4
[2020-12-08 11:26] LABS: Absolute Lymphocyte Count 1.13 X10^3/uL (0.83-4.51); Absolute Neutrophil Count 3.8 X10^3/uL (2.0-7.7); Basophil# 0.05 X10^3/uL; Basophil% 0.8 % (0-1); Eosinophil# 0.28 X10^3/uL; Eosinophils% 4.7 % (0-5); Hematocrit 38.2 % (37-47); Hemoglobin 12.3 g/dL (12.0-15.0); Lymphocyte # 1.13 X10^3/ul (0.83-4.51); Lymphocyte % 19.2 % (19-41); Mean Corp Hgb Conc 32.2 g/dL (32-36); Mean Corpuscular Hgb 34.2 pg (27.0-32.0); Mean Corpuscular Volume 106.1 fL (81-99); Mean Platelet Vol. 10.2 fl (6.2-12.0); Monocyte# 0.58 X10^3/uL; Monocyte% 9.8 % (0-10); NRBC Flagged by Analyzer 0 % (0-5); Neutrophil # 3.81 X10^3/uL (2.7-7.7); Neutrophil % 64.7 % (47-70); Platelet Count 307 K/mm3 (150-450); RBC Distribution Width CV 12.7 % (11.6-14.6); RBC Distribution Width SD 49.7 fl (35.1-43.9); White Blood Count 5.9 K/mm3 (4.4-11.0)
[2020-12-08 11:48] LABS: Anion Gap 5 (5-15); BUN 24 mg/dL (7-18); BUN/Creat Ratio 20.9 RATIO (10-20); Calcium,Total 8.9 mg/dL (8.5-10.1); Chloride 105 mmol/L (98-107); Creatinine, Serum 1.15 mg/dL (0.55-1.02); EST Glomerular Filtration Rate 48 mL/min (>60); Est Glom Filt Rate - Afr Amer 58 mL/min (>60); Glucose 95 mg/dL (74-106); Potassium 3.6 mmol/L (3.5-5.1); Sodium Level 142 mmol/L (136-145)
== END ==
PROVIDERS: Referring Provider Nurse Practitioner Gerontology; Visit Provider Nurse Practitioner Gerontology
DX: R53.83 Other fatigue (principal)
CPT/HCPCS: 36415; 80048; 85025

== ENCOUNTER → 2020-12-28 10:04 | Outpatient (CLI) | payer MEDICARE, SELFPAY ==
[2020-12-08 08:42] VITALS: BMI 31.4
--- NOTE | 2020-12-28 10:18 | ECHOD_ITS ---
Reason For Study: SOB Procedure This was a 2D Doppler, Color Flow transthoracic echocardiogram. Exam performed in department. Left Ventricle Normal LV size. D shaped septum in diastole. Left ventricular systolic function is lower limits of normal. The estimated ejection fraction is 50 %. No regional wall motion abnormalities noted. Right Ventricle Normal RV size. Normal systolic function. Atria The left atrium is moderately enlarged. Normal right atrium. Mitral Valve Bileaflet diffuse mitral valve thickening. Moderate (2+) eccentric mitral valve insufficiency. Tricuspid Valve Normal tricuspid valve. Moderate (2+) tricuspid valve insufficiency. Pulmonary artery systolic pressure is 56 mmHg. Aortic Valve Stable appearing bioprosthetic aortic valve apparatus. Pericardium/Pleural No pericardial effusion. MMode/2D Measurements & Calculations LVIDd: 4.3 cm IVSd: 1.3 cm LVOT diam: 2.0 cm LVIDs: 2.7 cm LVPWd: 1.1 cm LVOT area: 3.1 cm2 FS: 37.0 % Ao root diam: 3.3 cm LAV(MOD-bp): 98.5 ml LA dimension: 4.4 cm LA A4 area: 27.6 cm2 LAV(MOD-bp) Indexed: 53.9 ml/m2 LAV(MOD-sp2): 96.6 ml LAV(MOD-sp4): 93.8 ml RA A4 area: 19.0 cm2 Doppler Measurements & Calculations MV E max indra: 206.9 cm/sec Ao V2 max: 152.0 cm/sec LV V1 max: 118.4 cm/sec Ao max P.3 mmHg LV V1 max P.6 mmHg Ao V2 mean: 97.6 cm/sec LV V1 mean P.7 mmHg Ao mean P.4 mmHg LV V1 mean: 74.7 cm/sec Ao V2 VTI: 25.7 cm LV V1 VTI: 19.5 cm NIK(I,D): 2.3 cm2 NIK(V,D): 2.4 cm2 SV(LVOT): 59.6 ml PA V2 max: 56.7 cm/sec TR max indra: 359.1 cm/sec TR max P.6 mmHg ECHO/Echo Complete Interpretation Summary Normal LV size. Left ventricular systolic function is lower limits of normal. The estimated ejection fraction is 50 %. D shaped septum in diastole. Pulmonary artery systolic pressure is 56 mmHg. Stable appearing bioprosthetic aortic valve apparatus. Moderate (2+) eccentric mitral valve insufficiency. Ordering Physician: Tiffany Santiago Referring Physician: Masha Monk CHANNELER OUTSOLE-C Performed By: Kai Starr RCS
== END ==
PROVIDERS: PCP Nurse Practitioner Family; Referring Provider Nurse Practitioner Gerontology; Visit Provider Nurse Practitioner Gerontology
DX: I35.0 Nonrheumatic aortic (valve) stenosis (principal); R06.00 Dyspnea, unspecified; R06.02 Shortness of breath; Z95.2 Presence of prosthetic heart valve
CPT/HCPCS: 93306

== ENCOUNTER 2021-01-14 17:02 | Inpatient (IN) | payer MEDICARE, SELFPAY ==
[2021-01-14] VITALS (9 sets, daily range): BP systolic 153–197; BP diastolic 82–104; PULSE 86–103; RESP 20–26; TEMP 36.6–36.7; O2SAT 93–98; BMI 32.4; BMI 30.4
--- NOTE | 2021-01-14 17:43 | EKG12_ITS ---
Test Reason : SOB Blood Pressure : / mmHG Vent. Rate : 092 BPM Atrial Rate : 258 BPM P-R Int : 000 ms QRS Dur : 090 ms QT Int : 376 ms P-R-T Axes : 000 -03 094 degrees QTc Int : 464 ms Atrial fibrillation Low voltage QRS (Limb Leads) Poor R wave progression Abnormal ECG Confirmed by AMERICA TRINIDAD, KATHRINE ([id number]), marketing editor MONCHO TORRES ([id number]) on 01/18/2021 11:46:03 AM Referred By: Confirmed By:KATHRINE CROSS MD
--- NOTE | 2021-01-14 18:01 | RAD_ITS ---
INDICATION: chest pain EXAMINATION/TECHNIQUE: X-RAY - XR Chest 1 View COMPARISON: 09/01/2017 PA and lateral views of the chest. Also compared with 07/25/2017. FINDINGS: LINES/DEVICES: Short radiopaque stent material projects over the area of the aortic valve. There are overlying heart monitoring wires. LUNGS: Large right, greater than left, bilateral pleural effusions are present. Mild overlying airspace disease likely represents atelectasis bilaterally. No other airspace disease. No nodular mass. Pulmonary interstitial pattern is within normal limits. No pneumothorax. MEDIASTINUM AND CARDIOVASCULAR STRUCTURES: Cardiac silhouette not enlarged. Central airways and mediastinal contour are unremarkable. BONES AND SOFT TISSUES: Age expected degenerative changes. RAD/Chest 1 View (Portable) IMPRESSION: Large, right greater than left, bilateral pleural effusions. Electronically Signed: Yang Hurd DO at 19:04 EDT Tel , Service support ,
[2021-01-14 18:05] LABS: Absolute Neutrophil Count 4.1 X10^3/uL (2.0-7.7); Basophil# 0.03 X10^3/uL; Basophil% 0.4 % (0-1); Eosinophil# 0.19 X10^3/uL; Eosinophils% 2.7 % (0-5); Hematocrit 42.8 % (37-47); Hemoglobin 14.2 g/dL (12.0-15.0); Lymphocyte % 24.5 % (19-41); Mean Corp Hgb Conc 33.2 g/dL (32-36); Mean Corpuscular Hgb 34.5 pg (27.0-32.0); Mean Corpuscular Volume 104.1 fL (81-99); Mean Platelet Vol. 10.7 fl (6.2-12.0); NRBC Flagged by Analyzer 0 % (0-5); Neutrophil # 4.05 X10^3/uL (2.7-7.7); Neutrophil % 58.5 % (47-70); Platelet Count 286 K/mm3 (150-450); RBC Distribution Width CV 13.9 % (11.6-14.6); RBC Distribution Width SD 53.9 fl (35.1-43.9); Red Blood Count 4.11 M/mm3 (4.2-5.4); White Blood Count 6.9 K/mm3 (4.4-11.0)
--- NOTE | 2021-01-14 18:32 | ED.VIS.DYS ---
HPI History of Present Illness Chief Complaint: Shortness of Breath Narrative Narrative: Patient presenting for evaluation secondary to shortness of breath. Patient has a underlying history of atrial fibrillation, status post T AVR, as well as a chronic history of diastolic heart failure. Patient reports over the course about the last week she has been feeling short of breath specifically on exertion. Today the patient also had some concomitant chest pain. Patient denies any fever. She denies any cough. She denies any nausea vomiting or diarrhea. Patient is anticoagulated, she denies that she has missed any doses of this. Review of systems otherwise negative. [facility] Medical History (Updated 01/15/21 @ 00:[address] Yang Diop MD) Benign essential hypertension Bronchiectasis Chronic diastolic (congestive) heart failure Diet-controlled type 2 diabetes mellitus GI bleed Hypothyroidism Iron deficiency anemia Longstanding persistent atrial fibrillation Nonobstructive atherosclerosis of coronary artery Nonrheumatic aortic (valve) stenosis Nonrheumatic mitral valve stenosis with insufficiency Obesity Paroxysmal atrial fibrillation Secondary pulmonary arterial hypertension Home Medications glipizide 5 mg PO DAILY@0730 05/14/17 [History Last Taken Unknown] sennosides-docusate sodium 1 ea PO DAILY 05/14/17 [History Last Taken Unknown] pantoprazole 40 mg PO DAILY@0730 07/26/17 [History Last Taken Unknown] metoprolol tartrate 25 mg tablet 25 mg PO BID #180 tab 05/25/20 [Rx Last Taken Unknown] ferrous gluconate 240 mg (27 mg iron) tablet 240 mg PO BID tab 06/09/20 [History Last Taken Unknown] furosemide 40 mg tablet 40 mg PO DAILY 06/09/20 [History Last Taken Unknown] levothyroxine 150 mcg capsule 150 mcg PO DAILY 06/09/20 [History Last Taken Unknown] meclizine 25 mg tablet 25 mg PO DAILY PRN 06/09/20 [History Last Taken Unknown] apixaban 5 mg tablet 5 mg PO BID #60 tab 12/08/20 [Rx Last Taken Unknown] Allergy/AdvReac Type Severity Reaction Status Date / Time No Known Allergies Allergy Verified 12/08/20 09:48 Family History Son Myocardial infarction, Onset Age: 56 Son CVA (cerebral vascular accident) Surgical History H/O aortic valve replacement (04/10/17) History of cardioversion (07/2017) History of left heart catheterization (LHC) (02/06/17) Social History Smoking Status: Never smoker alcohol intake: never substance use type: does not use caffeine: Yes Type: coffee what type of physical activity do you participate in: none and other details: stretching.rom frequency: 1-2 times per week duration: 15-30 minutes/day seatbelt use: never do you feel safe at home: Yes ROS ROS ED Constitutional Constitutional ED: Denies fever(s) Eyes Eyes: Denies change in vision ENT ENT ED: Denies rhinorrhea or sore throat Cardiovascular Cardiovascular: Reports chest pain Respiratory/Chest Respiratory/Chest: Reports dyspnea Gastrointestinal Gastrointestinal: Denies abdominal pain, nausea or vomiting Genitourinary Genitourinary ED: Denies dysuria Musculoskeletal Musculoskeletal: Denies myalgias or neck pain Integumentary Denies rash Neurologic Neurologic: Denies headache(s), paresthesias or weakness Psychiatric Psychiatric: Denies depression Endocrine Endocrinology: Denies polydipsia or polyuria Hematologic/Lymphatic Hematologic/Lymphatic: Denies easy bleeding or easy bruising Allergic/Immunologic Allergic/Immunologic ED: Denies urticaria EXAM Physical Exam Const Vital Signs: 01/14/21 17:07 01/14/21 17:12 01/14/21 17:14 Temperature 97.9 F 97.9 F Temperature Source Temporal Temporal Pulse Rate 103 H 100 Respiratory Rate 24 H 26 H Respiratory Effort Short of Breath Respiratory Depth Deep Respiratory Pattern Tachypnea Blood Pressure 177/104 H Blood Pressure Mean 128 Pulse Ox 98 98 Oxygen Delivery Method Nasal Cannula Nasal Cannula Nasal Cannula Oxygen Flow Rate (L/min) 2 2 2 01/14/21 17:57 01/14/21 19:02 Temperature Temperature Source Pulse Rate 92 Respiratory Rate 20 H Respiratory Effort Respiratory Depth Respiratory Pattern Blood Pressure 175/82 H Blood Pressure Mean 113 Pulse Ox 95 93 Oxygen Delivery Method Nasal Cannula Nasal Cannula Oxygen Flow Rate (L/min) 2 2 Positive well nourished and well developed General Appearance ED: well developed and NAD HEENT Reports moist mucous membranes normocephalic and atraumatic Eyes EOMs intact bilaterally Neck no lymphadenopathy, supple and no JVD Chest Wall inspection of chest normal and palpation of chest normal Chest Narrative: No evidence of vesicular rash Resp clear to auscultation bilaterally Resp Narrative: Somewhat tachypneic, speaking in full sentences Auscultation: Negative for rales, rhonchi or wheezes Cardio S1 normal heart sound, S2 normal heart sound and no murmurs Cardio Narrative: Tachycardic and irregular, 2+ radial pulses Rate: tachycardic Peripheral Pulses: radial pulses present and posterior tibial pulses present GI normal to inspection, nondistended, normoactive bowel sounds, soft to palpation and non-tender Extremity normal to inspection Extremity Narrative: Calves are supple no palpable cord General Extremety ED: Negative for edema or tenderness General Extremity: Negative for edema Neuro oriented x3 and no sensory deficits noted Sensorium / Orientation: awake and alert Psych mental status grossly normal Skin no rashes or lesions noted MDM MDM MDM Narrative Medical decision making narrative: Patient presented secondary to shortness of breath. Patient was evaluated with an EKG that showed atrial fibrillation, no evidence of pathologic ST segment changes. CBC a.m. was unremarkable, no leukocytosis. Chemistry demonstrates normal renal function. High-sensitivity troponin was 127 BNP was 340. Patient was noted to have bilateral pleural effusions on chest x-ray by my personal review as well as radiology. Patient's O2 saturations are in the low 90s, she typically is not on supplemental oxygen. Patient likely at this point has an exacerbation of her congestive heart failure. Patient was given Lasix will be admitted for further treatment. Lab Data Labs: Laboratory Results - last 24 hr 01/14/21 01/14/21 01/14/21 17:15 17:15 17:57 WBC 6.9 RBC 4.11 L Hgb 14.2 Hct 42.8 MCV 104.1 H MCH 34.5 H MCHC 33.2 RDW Std Deviation 53.9 H RDW Coeff of Cristi 13.9 Plt Count 286 MPV 10.7 Immature Gran % (Auto) 0.900 Neut % (Auto) 58.5 Lymph % (Auto) 24.5 [place] % (Auto) 13.0 H Eos % (Auto) 2.7 Baso % (Auto) 0.4 Absolute Neuts (auto) 4.1 Absolute Lymphs (auto) 1.70 Nucleated RBC % 0 Sodium 136 Potassium 3.7 Chloride 106 Carbon Dioxide 22.0 Anion Gap 8 BUN 15 Creatinine 0.83 Estim Creat Clear Calc 40.25 Est GFR (MDRD) Af Amer 84 Est GFR (MDRD) Non-Af 69 BUN/Creatinine Ratio 18.0 Glucose 83 Calcium 9.0 Troponin I High Sens 127 H* B-Natriuretic Peptide 340.5 H Radiography Chest X-Ray - ED: Read by ED Physician, CHF, Right Effusion and Left Effusion Diagnostic Testing: Radiology Impression Chest X-Ray 01/14/21 18:01 IMPRESSION: Large, right greater than left, bilateral pleural effusions. Electronically Signed: Yang Hurd DO at 19:04 EDT Tel , Service support , EKG Initial EKG: Attestation: I personally reviewed and interpreted this EKG as follows: (Atrial fibrillation at a rate of 92. No evidence of pathologic ST segment deviation or T wave inversion. No acute ischemia.) Discharge Plan Dx/Rx/DC Orders Clinical Impression: Acute on chronic heart failure Disposition Disposition: Acute Care Hospital [facility] Discharge Date/Time: 01/14/21 22:08
[2021-01-14 18:43] LABS: BNP,B-Type NATRIURETIC PEPTIDE 340.5 pg/mL (0-100)
[2021-01-14 19:15] LABS: Anion Gap 8 (5-15); BUN 15 mg/dL (7-18); Chloride 106 mmol/L (98-107); Creatinine, Serum 0.83 mg/dL (0.55-1.02); EST Glomerular Filtration Rate 69 mL/min (>60); Est Glom Filt Rate - Afr Amer 84 mL/min (>60); Estimated Creatinine Clearance 40.25 ml/min; Glucose 83 mg/dL (74-106); Potassium 3.7 mmol/L (3.5-5.1); Sodium Level 136 mmol/L (136-145); Troponin-I HS 127 pg/mL (3.0-54.0)
--- NOTE | 2021-01-14 20:04 | HP.PCM_ITS ---
Documented by User: JOSE Russell 01/14/21 20:21 HPI - General General Date of Admission: 01/14/21 Date of Service: 01/14/21 Chief Complaint: Shortness of Breath HPI Narrative BECKY HOYT, is a 85 F who presents with complaints of shortness of breath x1 week. Patient states that the shortness of breath is worse with exertion and improved with rest however it does not completely go away with rest. Patient's daughter reports that she has noticed her legs are also much more swollen than normal. Patient denies fever, chills, chest pain, cough, nausea, vomiting, diarrhea, constipation. [facility] Medical History (Updated 01/14/21 @ 20:14 by JOSE Russell) Benign essential hypertension Bronchiectasis Chronic diastolic (congestive) heart failure Diet-controlled type 2 diabetes mellitus GI bleed Hypothyroidism Iron deficiency anemia Longstanding persistent atrial fibrillation Nonobstructive atherosclerosis of coronary artery Nonrheumatic aortic (valve) stenosis Nonrheumatic mitral valve stenosis with insufficiency Obesity Paroxysmal atrial fibrillation Secondary pulmonary arterial hypertension Home Medications glipizide 5 mg PO DAILY@0730 05/14/17 [History Last Taken Unknown] sennosides-docusate sodium 1 ea PO DAILY 05/14/17 [History Last Taken Unknown] pantoprazole 40 mg PO DAILY@0730 07/26/17 [History Last Taken Unknown] metoprolol tartrate 25 mg tablet 25 mg PO BID #180 tab 05/25/20 [Rx Last Taken Unknown] ferrous gluconate 240 mg (27 mg iron) tablet 240 mg PO BID tab 06/09/20 [History Last Taken Unknown] furosemide 40 mg tablet 40 mg PO DAILY 06/09/20 [History Last Taken Unknown] levothyroxine 150 mcg capsule 150 mcg PO DAILY 06/09/20 [History Last Taken Unknown] meclizine 25 mg tablet 25 mg PO DAILY PRN 06/09/20 [History Last Taken Unknown] apixaban 5 mg tablet 5 mg PO BID #60 tab 12/08/20 [Rx Last Taken Unknown] Allergy/AdvReac Type Severity Reaction Status Date / Time No Known Allergies Allergy Verified 12/08/20 09:48 Family History Son Myocardial infarction, Onset Age: 56 Son CVA (cerebral vascular accident) Surgical History H/O aortic valve replacement (04/10/17) History of cardioversion (07/2017) History of left heart catheterization (LHC) (02/06/17) Social History Smoking Status: Never smoker alcohol intake: never substance use type: does not use caffeine: Yes Type: coffee what type of physical activity do you participate in: none and other details: stretching.rom frequency: 1-2 times per week duration: 15-30 minutes/day seatbelt use: never do you feel safe at home: Yes ROS Constitutional Constitutional: Reports fatigue; Denies anorexia, chills, fever(s), malaise or weakness Cardiovascular Cardiovascular: Reports edema; Denies chest pain or palpitations Respiratory/Chest Respiratory/Chest: Reports shortness of breath at rest, shortness of breath with exertion and wheezing; Denies cough Gastrointestinal Gastrointestinal: Denies abdominal pain, constipation, diarrhea, nausea or vomiting Genitourinary Genitourinary: Denies dysuria Musculoskeletal Musculoskeletal: Denies back pain, extremity pain, joint pain or joint stiffness Integumentary Integumentary: Denies dry skin Neurologic Neurologic: Denies abnormal gait, abnormal speech, confusion or dizziness Psychiatric Psychiatric: Denies anxiety or depression Endocrine Endocrinology: Denies change in body appearance Hematologic/Lymphatic Hematologic/Lymphatic: Denies anemia, easy bleeding or easy bruising Vital Signs Vital Signs Vital Signs: 01/14/21 17:07 01/14/21 17:12 01/14/21 17:14 Temperature 97.9 F 97.9 F Temperature Source Temporal Temporal Pulse Rate 103 H 100 Respiratory Rate 24 H 26 H Respiratory Effort Short of Breath Respiratory Depth Deep Respiratory Pattern Tachypnea Blood Pressure 177/104 H Blood Pressure Mean 128 Pulse Ox 98 98 Oxygen Delivery Method Nasal Cannula Nasal Cannula Nasal Cannula Oxygen Flow Rate (L/min) 2 2 2 01/14/21 17:57 Temperature Temperature Source Pulse Rate Respiratory Rate Respiratory Effort Respiratory Depth Respiratory Pattern Blood Pressure Blood Pressure Mean Pulse Ox 95 Oxygen Delivery Method Nasal Cannula Oxygen Flow Rate (L/min) 2 Weight Weight: 182 lb 15.739 oz Body Mass Index (BMI) 32.4 Physical Exam Const alert, oriented x3 and no apparent distress General Appearance: cooperative HEENT normocephalic and head/scalp atraumatic Eyes conjunctivae normal and no scleral icterus Neck supple and no JVD General: trachea midline Resp Effort and Inspection: tachypneic and labored Auscultation: rhonchi throughout Cardio S1 normal heart sound, S2 normal heart sound and peripheral pulses 2+ throughout Rhythm: abnormal rhythm irregularly irregular (Chronic A. fib, rate controlled 93) GI normal to inspection, nondistended, normoactive bowel sounds, soft to palpation and non-tender Extremity normal capillary refill and no clubbing, cyanosis or edema General Extremity: no tenderness to palpation of joints or extremities Skin General Skin Exam: no breakdown and turgor normal Lesions: no lesions Rashes: no rashes Neuro no focal motor deficits and no sensory deficits noted Speech: speech normal Motor Exam: general weakness Psych thought process normal, cooperative and affect normal Appearance: appropriate Results Lab / Micro Data Result Diagrams: 01/14/21 17:15 01/14/21 17:57 Labs: Laboratory Results - last 24 hr 01/14/21 17:15: WBC 6.9, RBC 4.11 L, Hgb 14.2, Hct 42.8, MCV 104.1 H, MCH 34.5 H , MCHC 33.2, RDW Std Deviation 53.9 H, RDW Coeff of Cristi 13.9, Plt Count 286, MPV 10.7, Immature Gran % (Auto) 0.900, Neut % (Auto) 58.5, Lymph % (Auto) 24.5, [place] % (Auto) 13.0 H, Eos % (Auto) 2.7, Baso % (Auto) 0.4, Absolute Neuts (auto) 4.1, Absolute Lymphs (auto) 1.70, Nucleated RBC % 0 01/14/21 17:15: B-Natriuretic Peptide 340.5 H 01/14/21 17:57: Sodium 136, Potassium 3.7, Chloride 106, Carbon Dioxide 22.0, Anion Gap 8, BUN 15, Creatinine 0.83, Estim Creat Clear Calc 40.25, Est GFR (MDRD) Af Amer 84, Est GFR (MDRD) Non-Af 69, BUN/Creatinine Ratio 18.0, Glucose 83, Calcium 9.0, Troponin I High Sens 127 H* Micro: Microbiology 01/14/21 17:56 Nasal Secretion SARS-CoV-2 Antigen (Rapid) - Final Radiology Impression Chest X-Ray 01/14/21 18:01 IMPRESSION: Large, right greater than left, bilateral pleural effusions. Electronically Signed: Yang DennisDO vitor at 19:04 EDT Tel , Service support , Assessment & Plan Assessment/Plan (1) Acute on chronic heart failure: QUALIFIERS: Heart failure type: diastolic Qualified Code(s): I50.33 - Acute on chronic diastolic (congestive) heart failure (2) Longstanding persistent atrial fibrillation: PLAN: 1. Acute on chronic diastolic heart failure with preserved EF -Admit to PCU for cardiac monitoring -Patient most recent echocardiogram 12/28/2020 shows EF 50% with left ventricular systolic function lower limits of normal. -Trend cardiac enzymes, initial value 127 -Daily weights -Strict intake and output -Cardiac diet -Thoracentesis with ultrasound ordered for bilateral pleural effusions right greater than left. Body fluid cell count, glucose, LDH, protein ordered -CBC and BMP ordered daily -Vital signs per protocol -IV Lasix ordered, patient received 80 mg IV x1 in ER. -BNP obtained in ER, 340.5 2. Longstanding persistent atrial fibrillation -Continue metoprolol -Will hold Eliquis tonight pending thoracentesis in a.m. -EKG shows atrial fibrillation with heart rate 93 -Continuous cardiac monitoring occurred 3. Diabetes mellitus type 2 -Hold glipizide -AC at bedtime blood sugars with sliding scale insulin ordered 4. Hypothyroidism -Continue levothyroxine DVT prophylaxis-SCDs, pharmacological prophylaxis not indicated patient chronically anticoagulated with Eliquis This patient was seen by Casie Lawrence NP-C under the supervision of Dr. Saavedra. Documented by User: Dr. Thai Saavedra MD 01/14/21 21:03 HPI - General General Date of Admission: 01/14/21 [facility] Medical History (Updated 01/14/21 @ 20:14 by JOSE Russell) Benign essential hypertension Bronchiectasis Chronic diastolic (congestive) heart failure Diet-controlled type 2 diabetes mellitus GI bleed Hypothyroidism Iron deficiency anemia Longstanding persistent atrial fibrillation Nonobstructive atherosclerosis of coronary artery Nonrheumatic aortic (valve) stenosis Nonrheumatic mitral valve stenosis with insufficiency Obesity Paroxysmal atrial fibrillation Secondary pulmonary arterial hypertension Home Medications glipizide 5 mg PO DAILY@0730 05/14/17 [History Last Taken Unknown] sennosides-docusate sodium 1 ea PO DAILY 05/14/17 [History Last Taken Unknown] pantoprazole 40 mg PO DAILY@0730 07/26/17 [History Last Taken Unknown] metoprolol tartrate 25 mg tablet 25 mg PO BID #180 tab 05/25/20 [Rx Last Taken Unknown] ferrous gluconate 240 mg (27 mg iron) tablet 240 mg PO BID tab 06/09/20 [History Last Taken Unknown] furosemide 40 mg tablet 40 mg PO DAILY 06/09/20 [History Last Taken Unknown] levothyroxine 150 mcg capsule 150 mcg PO DAILY 06/09/20 [History Last Taken Unknown] meclizine 25 mg tablet 25 mg PO DAILY PRN 06/09/20 [History Last Taken Unknown] apixaban 5 mg tablet 5 mg PO BID #60 tab 12/08/20 [Rx Last Taken Unknown] Allergy/AdvReac Type Severity Reaction Status Date / Time No Known Allergies Allergy Verified 12/08/20 09:48 Family History Son Myocardial infarction, Onset Age: 56 Son CVA (cerebral vascular accident) Surgical History H/O aortic valve replacement (04/10/17) History of cardioversion (07/2017) History of left heart catheterization (LHC) (02/06/17) Social History Smoking Status: Never smoker alcohol intake: never substance use type: does not use caffeine: Yes Type: coffee what type of physical activity do you participate in: none and other details: stretching.rom frequency: 1-2 times per week duration: 15-30 minutes/day seatbelt use: never do you feel safe at home: Yes Results Lab / Micro Data Result Diagrams: 01/14/21 17:15 01/14/21 17:57 Charges/Coding Addendum Addendum: Dr. Saavedra: I personally reviewed the chart and examined the patient, and agree with the above findings. 85-year-old female presents to the hospital shortness of breath about a week. She does have a history of pulmonary hypertension and is supposed be on Lasix. She says that she is been noticing her lower extremities been getting more swollen and she has been taking her Lasix however has not been noticing much difference in the swelling. In the ER she was found to have bilateral pleural effusions larger on the right than the left. She is satting okay on 2 L nasal cannula. Her BNP is elevated at 340 and her troponin is elevated at 127. Will obtain serial troponins but this is likely demand secondary to her blood pressure as well as her shortness of breath. We will place her on twice daily IV Lasix and will hold her Eliquis for her history of A. fib in the hopes of having a thoracentesis performed tomorrow as she will be over 24 hours without anticoagulation at that time. She denies any chest pain currently but said that she had chest pain earlier in the morning but states that this has resolved. EKG was nonischemic. Visit Charges Inpatient E&M: 27793 Init Hosp L3
[2021-01-14] MEDS: Metoprolol Tartrate 5 MG/5 ML Vial IV (20:40)
[2021-01-14] MEDS: Furosemide 100 MG/10 ML Vial 80 MG IV (20:40)
[2021-01-14] MEDS: Metoprolol Tartrate 25 MG Tablet PO (23:19)
[2021-01-14 23:30] LABS: Bedside Glucose 110 mg/dL (70-110)
[2021-01-15] VITALS (18 sets, daily range): BP systolic 87–159; BP diastolic 46–90; PULSE 65–103; RESP 12–95; TEMP 35.9–37.1; O2SAT 94–100
--- NOTE | 2021-01-15 | FLU_PTH ---
PATIENT: BECKY HOYT LOC: PCU U#:[id number] AGE/SX: 85/F ROOM: [facility] RE01/14/[address]: Dr. James Capps MD : [id number] BED: 1 DIS: 01/16/2021 SPEC #: [id number] RECD: 01/18/21 08:56 STATUS: PIYUSH REQ #: [id number] LAURA: 01/15/21 00:[address]: James Capps DEPT: CYTOLOGY RECD BY: Che Gee ENTERED: 01/18/21 08:57 SP TYPE: Fluid OTHR DR: MD Masha Farmer, SOCIAL INSURANCE ADVISER-C Tissues: THORACIC FLUID Procedures: Special Stain Group II Surgery Specimen Level IV Cytospin Fluid HEADER OPERATION: Ultrasound-guided thoracentesis PRE-OP DIAGNOSIS: Pleural effusion TISSUE SUBMITTED: Thoracentesis fluid for cytology DIAGNOSIS CYTOLOGY Thoracentesis fluid for cytology (cytospin and cell block): Negative for malignant cells. AM:boaz 01/19/2021 CYTOLOGY STUDY Slides are reviewed. CYTOLOGY GROSS Received is 75 ml of lew cloudy fluid labeled with the patient's name and and designated per the requisition as thoracentesis. Submitted for cytology preparation including cell block. / boaz 01/18/2021 TC:5 CPT: 93025, 25164
[2021-01-15 00:29] LABS: Troponin-I HS 118 pg/mL (3.0-54.0)
[2021-01-15] MEDS: Levothyroxine 150 MCG Tablet PO (05:28)
[2021-01-15] MEDS: Menthol/Lanolin/Calamine/Znox 113 GM Tube 1 APPLIC TOPICAL ×3 (05:28→22:04)
[2021-01-15] MEDS: Pantoprazole Sodium 40 MG Tablet PO (06:15)
[2021-01-15 06:35] LABS: Absolute Neutrophil Count 3.9 X10^3/uL (2.0-7.7); Basophil# 0.05 X10^3/uL; Basophil% 0.8 % (0-1); Eosinophil# 0.17 X10^3/uL; Eosinophils% 2.8 % (0-5); Hematocrit 41.6 % (37-47); Hemoglobin 13.9 g/dL (12.0-15.0); Lymphocyte % 19.5 % (19-41); Mean Corp Hgb Conc 33.4 g/dL (32-36); Mean Corpuscular Hgb 34.6 pg (27.0-32.0); Mean Corpuscular Volume 103.5 fL (81-99); Mean Platelet Vol. 10.3 fl (6.2-12.0); Monocyte# 0.85 X10^3/uL; Monocyte% 13.8 % (0-10); NRBC Flagged by Analyzer 0 % (0-5); Neutrophil # 3.85 X10^3/uL (2.7-7.7); Neutrophil % 62.5 % (47-70); Platelet Count 272 K/mm3 (150-450); RBC Distribution Width CV 13.8 % (11.6-14.6); RBC Distribution Width SD 53.1 fl (35.1-43.9); Red Blood Count 4.02 M/mm3 (4.2-5.4); White Blood Count 6.2 K/mm3 (4.4-11.0)
[2021-01-15 06:44] LABS: International Normalized Ratio 1.7
[2021-01-15 06:51] LABS: Bedside Glucose 86 mg/dL (70-110)
[2021-01-15 07:06] LABS: Anion Gap 8 (5-15); BUN 15 mg/dL (7-18); BUN/Creat Ratio 16.8 RATIO (10-20); Calcium,Total 8.9 mg/dL (8.5-10.1); Chloride 101 mmol/L (98-107); Creatinine, Serum 0.89 mg/dL (0.55-1.02); EST Glomerular Filtration Rate 64 mL/min (>60); Est Glom Filt Rate - Afr Amer 77 mL/min (>60); Estimated Creatinine Clearance 37.53 ml/min; Glucose 94 mg/dL (74-106); Potassium 3.3 mmol/L (3.5-5.1); Sodium Level 139 mmol/L (136-145)
[2021-01-15] MEDS: Ferrous Gluconate 324 MG Tablet PO ×2 (09:02→17:23)
[2021-01-15] MEDS: Metoprolol Tartrate 25 MG Tablet PO ×2 (09:02→22:08)
[2021-01-15 09:06] LABS: AST(SGOT) 19 U/L (15-37); Alanine Aminotransfer ALT/SGPT 20 U/L (13-56); Albumin, Serum 3.4 g/dL (3.2-5.0); Alkaline Phosphatase 110 U/L (45-117); Bilirubin, Direct 0.58 mg/dL (0.00-0.30); Globulin 4.4 g/dL (2.2-4.2); Protein, Total 7.8 g/dL (6.4-8.2)
[2021-01-15] MEDS: 0.9% Saline Lock 10 ML Syringe IV ×2 (10:21→17:24)
[2021-01-15] MEDS: Furosemide 40 MG/4 ML Vial IV ×2 (10:21→17:24)
[2021-01-15 11:26] LABS: Bedside Glucose 124 mg/dL (70-110)
--- NOTE | 2021-01-15 11:30 | CASEMGMT ---
RN GAURANG Face to Face with patient for initial transition planning/care coordination assessment. RN CM introduced self and role at [facility]. Patient lying in bed, alert and oriented, daughter at bedside. Patient willing to participate in assessment and is able to answer all questions appropriately. Care providers, pharmacy, and demographics verified. Patient wishes to discharge home, denies need for home health at this time. Patient states she has no further needs or concerns at this time. CM to follow for discharge planning needs that may arise. PCP: Aleshia Specialists: Ted professor of latin american studies Preferred Pharmacy: [facility] Insurance: [facility] Prescription Benefit: yes Living Will/HPOA: patient not sure if completed LNOK: daughters Living Arrangements: Patient lives with daughter in an in-law suite that is one level and no steps. Patient states she has access to electricity. Patient states she is independent at home. Transportation: Driving service DME/HHC: Patient states she has walker and grab bars at home. Patient denies previous HHC. Patient was provided a list of DME providers consistent with the patient?s preferred geographic region, medical needs, and insurance network. The patient?s preferred provider is [employer]. Will monitor for need for home oxygen. Disposition Plan: Patient to discharge home with family support and follow-up plans in place. China TAVERA, RN, CM
--- NOTE | 2021-01-15 13:59 | CASEMGMT ---
Green sheet on chart if pt qualifies for home oxygen. Rishi FELTON CM
[2021-01-15] MEDS: Lidocaine 2% (20 ml mdv) 20 ML Vial 10 ML INFILT (14:15)
--- NOTE | 2021-01-15 14:25 | RAD_ITS ---
STUDY: X-RAY CHEST REASON FOR EXAM: Female, 85 years old. Post thoracentesis TECHNIQUE: AP inspiration and expiration views. COMPARISON: Comparison is made with prior examination dated 01/14/2021. FINDINGS: The patient is status post right thoracentesis. Tiny right apical pneumothorax. RAD/Chest Insp/Exp 2 View IMPRESSION: Status post right thoracentesis. Tiny right apical pneumothorax. Electronically Signed: Nico Goode MD at 14:53 EDT , Service support ,
[2021-01-15 14:51] LABS: Cytology, Body Fluid / CSF SEE PATHOLOGY REPORT
--- NOTE | 2021-01-15 15:04 | PN.HOSP_ITS ---
Subjective Subjective Patient is very hard of hearing and history taken mainly from her daughter. Patient is short of breath and has history of CHF and coronary artery disease and aortic valve replacement and secondary pulmonary hypertension. Objective Data Objective Data Vital Signs: Vital Signs Temp Pulse Resp BP Pulse Ox 98.1 F 87 20 H 141/88 H 100 01/15/21 14:56 01/15/21 14:56 01/15/21 14:56 01/15/21 14:56 01/15/21 14:56 Oxygen Flow Rate (L/min) [6] 2 Oxygen Flow Rate (L/min) [5] 2 Oxygen Flow Rate (L/min) [4] 2 Oxygen Flow Rate (L/min) [3] 2 Oxygen Flow Rate (L/min) [2] 2 Oxygen Flow Rate (L/min) [1 ( 2 Initial Baseline)] Oxygen Flow Rate (L/min) 2 Oxygen Delivery Method [6] Nasal Cannula Oxygen Delivery Method [5] Nasal Cannula Oxygen Delivery Method [4] Nasal Cannula Oxygen Delivery Method [3] Nasal Cannula Oxygen Delivery Method [2] Nasal Cannula Oxygen Delivery Method [1 ( Nasal Cannula Initial Baseline)] Oxygen Delivery Method Room Air Weight: 173 lb 8.061 oz Body Mass Index (BMI) 30.4 Intake & Output: Intake and Output for Last 24 Hours 01/13/21 01/14/21 01/15/21 23:59 23:59 23:59 Intake Total 400 / 400 Output Total 1350 / 1350 Balance -950 / -950 Lab / Micro Data Result Diagrams: 01/15/21 06:15 01/15/21 06:15 Labs: Laboratory Results - last 24 hr 01/14/21 17:15: WBC 6.9, RBC 4.11 L, Hgb 14.2, Hct 42.8, MCV 104.1 H, MCH 34.5 H , MCHC 33.2, RDW Std Deviation 53.9 H, RDW Coeff of Cristi 13.9, Plt Count 286, MPV 10.7, Immature Gran % (Auto) 0.900, Neut % (Auto) 58.5, Lymph % (Auto) 24.5, Ware % (Auto) 13.0 H, Eos % (Auto) 2.7, Baso % (Auto) 0.4, Absolute Neuts (auto) 4.1, Absolute Lymphs (auto) 1.70, Nucleated RBC % 0 01/14/21 17:15: B-Natriuretic Peptide 340.5 H 01/14/21 17:57: Sodium 136, Potassium 3.7, Chloride 106, Carbon Dioxide 22.0, Anion Gap 8, BUN 15, Creatinine 0.83, Estim Creat Clear Calc 40.25, Est GFR (MDRD) Af Amer 84, Est GFR (MDRD) Non-Af 69, BUN/Creatinine Ratio 18.0, Glucose 83, Calcium 9.0, Troponin I High Sens 127 H* 01/14/21 23:18: POC Glucose 110 01/15/21 00:00: Troponin I High Sens 118 H 01/15/21 06:14: POC Glucose 86 01/15/21 06:15: WBC 6.2, RBC 4.02 L, Hgb 13.9, Hct 41.6, MCV 103.5 H, MCH 34.6 H , MCHC 33.4, RDW Std Deviation 53.1 H, RDW Coeff of Cristi 13.8, Plt Count 272, MPV 10.3, Immature Gran % (Auto) 0.600, Neut % (Auto) 62.5, Lymph % (Auto) 19.5, Ware % (Auto) 13.8 H, Eos % (Auto) 2.8, Baso % (Auto) 0.8, Absolute Neuts (auto) 3.9, Absolute Lymphs (auto) 1.20, Nucleated RBC % 0 01/15/21 06:15: Sodium 139, Potassium 3.3 L, Chloride 101, Carbon Dioxide 30.0, Anion Gap 8, BUN 15, Creatinine 0.89, Estim Creat Clear Calc 37.53, Est GFR (MDRD) Af Amer 77, Est GFR (MDRD) Non-Af 64, BUN/Creatinine Ratio 16.8, Glucose 94, Calcium 8.9 01/15/21 06:15: PT 19.0 H, INR 1.7, APTT 41.0 H 01/15/21 06:15: Total Bilirubin 1.60 H, Direct Bilirubin 0.58 H, AST 19, ALT 20, Alkaline Phosphatase 110, Lactate Dehydrogenase Cancelled, Total Protein 7.8, Albumin 3.4, Globulin 4.4 H 01/15/21 06:15: Lactate Dehydrogenase Cancelled, Total Protein Cancelled, Globulin Cancelled, Albumin/Globulin Ratio Cancelled 01/15/21 11:11: POC Glucose 124 H Micro: Microbiology 01/14/21 17:56 Nasal Secretion SARS-CoV-2 Antigen (Rapid) - Final Radiography Diagnostic Testing: Radiology Impression Chest X-Ray 01/14/21 18:01 IMPRESSION: Large, right greater than left, bilateral pleural effusions. Electronically Signed: Yang Hurd DO at 19:04 EDT Tel , Service support , Chest X-Ray 01/15/21 14:25 IMPRESSION: Status post right thoracentesis. Tiny right apical pneumothorax. Electronically Signed: Nico Goode MD at 14:53 EDT , Service support , Thoracentesis Ultrasound 01/15/21 22:38 IMPRESSION: Ultrasound-guided right thoracentesis. Electronically Signed: Nico Goode MD at 14:52 EDT , Service support , Physical Exam Narrative General: Alert, Oriented x3, Cooperative HEENT: Hard of hearing atraumatic, PERRLA, EOMI, Normocephalic Oral: No Gingival or Mucosal Lesions/ Ulcerations Neck: Supple, No JVD, Negative Carotid Bruits Lungs: Air entry diminished in bilateral lung bases. Bilateral right large, left moderate pleural effusion. Cardiovascular: A. fib, Normal S1, Normal S2, systolic left second ICS and cardiac apex murmur Abdomen: Bowel Sounds Present, Soft, Non Tender, Non-Distended : No renal angle tenderness. No suprapubic tenderness. Extremities: 2+ bilateral leg edema, Capillary Refill Less than 3 Seconds Skin: No rashes, No breakdown Musculoskeletal: No Tenderness to Palpation of Joints or Extremities Neurological: Cranial nerves II-XII grossly intact, DTR 2+/4 and Symmetrical, Neuro grossly intact Psych/Mental Status: Normal Affect, Appropriate. Assessment & Plan Assessment/Plan (1) Acute on chronic heart failure: QUALIFIERS: Heart failure type: diastolic Qualified Code(s): I50.33 - Acute on chronic diastolic (congestive) heart failure PLAN: 1. Acute on chronic diastolic heart failure secondary to bilateral pleural effusion, A. fib: Exact exacerbating factor healthcare. Patient recentechocardiogram 12/28/2020 shows EF 50% with left ventricular systolic function lower limits of normal. Ultrasound thoracocentesis ordered. Pleural and serum fluid labs ordered. BNP elevated. Troponin high-sensitivity elevated. On Lasix 40 mg IV twice daily. On metoprolol 25 mg twice daily. Heart rate is controlled. Heart failure core measures including intake and output, fluid restriction less than 1500 mL, daily weight monitoring, kidney and electrolytes monitoring 2. Chronic persistent atrial fibrillation: Heart rate is controlled. Eliquis on hold. EKG shows atrial fibrillation with heart rate 93 3. Diabetes mellitus type 2: Accu-Cheks and coverage similar sliding scale. Glipizide on hold. 4. Hypothyroidism -Continue levothyroxine DVT prophylaxis-SCDs, pharmacological prophylaxis not indicated patient chroni luther anticoagulated with Eliquis Living will/advanced directive/end of life care: Patient does have living will or advanced directive. Her daughter is power of transactional attorney for health. Discussed with patient's daughter, Oralia present in the room. After discussion of benefits/risks procedures involved with full code, DNR CC arrest and DNR CC, the patient opted for DNR-CC Arrest with no intubation Patient does not want artificial life support including intubation, tube feed, ventilator and/chest compression, central venous catheter, vasopressor and DC shock if needed Total time spent in [id number] encounter in discussion of advanced directive 16 minutes. Microbiology Past 72 Hours 01/14/21 17:56 Nasal Secretion SARS-CoV-2 Antigen (Rapid) - Final Laboratory Results 01/14/21 17:15: WBC 6.9, RBC 4.11 L, Hgb 14.2, Hct 42.8, MCV 104.1 H, MCH 34.5 H , MCHC 33.2, RDW Std Deviation 53.9 H, RDW Coeff of Cristi 13.9, Plt Count 286, MPV 10.7, Immature Gran % (Auto) 0.900, Neut % (Auto) 58.5, Lymph % (Auto) 24.5, Ware % (Auto) 13.0 H, Eos % (Auto) 2.7, Baso % (Auto) 0.4, Absolute Neuts (auto) 4.1, Absolute Lymphs (auto) 1.70, Nucleated RBC % 0 01/14/21 17:15: B-Natriuretic Peptide 340.5 H 01/14/21 17:57: Sodium 136, Potassium 3.7, Chloride 106, Carbon Dioxide 22.0, Anion Gap 8, BUN 15, Creatinine 0.83, Estim Creat Clear Calc 40.25, Est GFR (MDRD) Af Amer 84, Est GFR (MDRD) Non-Af 69, BUN/Creatinine Ratio 18.0, Glucose 83, Calcium 9.0, Troponin I High Sens 127 H* 01/14/21 23:18: POC Glucose 110 01/15/21 00:00: Troponin I High Sens 118 H 01/15/21 06:14: POC Glucose 86 01/15/21 06:15: WBC 6.2, RBC 4.02 L, Hgb 13.9, Hct 41.6, MCV 103.5 H, MCH 34.6 H , MCHC 33.4, RDW Std Deviation 53.1 H, RDW Coeff of Cristi 13.8, Plt Count 272, MPV 10.3, Immature Gran % (Auto) 0.600, Neut % (Auto) 62.5, Lymph % (Auto) 19.5, Ware % (Auto) 13.8 H, Eos % (Auto) 2.8, Baso % (Auto) 0.8, Absolute Neuts (auto) 3.9, Absolute Lymphs (auto) 1.20, Nucleated RBC % 0 01/15/21 06:15: Sodium 139, Potassium 3.3 L, Chloride 101, Carbon Dioxide 30.0, Anion Gap 8, BUN 15, Creatinine 0.89, Estim Creat Clear Calc 37.53, Est GFR (MDRD) Af Amer 77, Est GFR (MDRD) Non-Af 64, BUN/Creatinine Ratio 16.8, Glucose 94, Calcium 8.9 01/15/21 06:15: PT 19.0 H, INR 1.7, APTT 41.0 H 01/15/21 06:15: Total Bilirubin 1.60 H, Direct Bilirubin 0.58 H, AST 19, ALT 20, Alkaline Phosphatase 110, Lactate Dehydrogenase Cancelled, Total Protein 7.8, Albumin 3.4, Globulin 4.4 H 01/15/21 06:15: Lactate Dehydrogenase Cancelled, Total Protein Cancelled, Globulin Cancelled, Albumin/Globulin Ratio Cancelled 01/15/21 11:11: POC Glucose 124 H 01/15/21 14:47: Fluid Glucose Pending, Fluid Total Protein Pending, Fluid LDH Pending 01/15/21 14:47: Fluid Source Pending, Fluid Color Pending, Fluid Appearance Pending, Fluid WBC Pending, Fluid RBC Pending, Fluid Tot Cell Count Pending, Fl Pathologist Comment Pending, Fluid Comment 2 Pending 01/15/21 14:47: Fluid pH Pending 01/15/21 14:50: Miscellaneous Cytology Pending Charges/Coding Visit Charges Inpatient E&M: 18065 Subs Hosp L2 Procedures Hospitalists Procedures: 22089 Advncd Care Plan 30 Min
[2021-01-15 15:27] LABS: Body Fluid Mononuclear WBC # 0.262 10^3/uL; Body Fluid Mononuclear WBC % 86.1 %; Body Fluid Polynuclear WBC # 0.042 10^3/uL; Body Fluid Polynuclear WBC % 13.9 %; Body Fluid Total Cells Counted 0.332 10^3/ul; Red Cell Count/Body Fluid 0.003 10^6/ul; White Blood Count/Body Fluid 0.304 10^3/uL
[2021-01-15 15:47] LABS: Auto B Fluid Analyzer BKGD Ct COUNTS W/IN LIMITS (W/IN LIMITS)
[2021-01-15 15:48] LABS: Appearance/Body Fluid SL CLDY; Color/Body Fluid YELLOW; Source- Body Fluid THORACENTESIS
[2021-01-15 16:27] LABS: Lymphocytes 61 %; Macrophages 5 %; Monocytes 19 %; Neutrophil (Segs) 15 %
[2021-01-15 16:29] LABS: Body Fluid QC Type(s) BF1Q
[2021-01-15 17:35] LABS: Bedside Glucose 130 mg/dL (70-110)
[2021-01-15 17:39] LABS: Glucose, Body Fluid 129 mg/dL (40-70); LDH,Body Fluid 62 Units/l (Not Establ.); Protein, Body Fluid 2.2 g/dL (Not Establ.)
--- NOTE | 2021-01-15 22:38 | US_ITS ---
PROCEDURE: ULTRASOUND GUIDED THORACENTESIS. DATE: 01/15/2021. INDICATION: Female, 85 years old. Right pleural effusion. PHYSICIAN: Nico Goode M.D. PROCEDURE: The risks, benefits, and alternatives to the procedure were explained to the patient. The specific risks of bleeding, infection, and pneumothorax requiring chest tube insertion were discussed and accepted. Written informed consent was obtained. Ultrasonographic evaluation of the right lower pleural space was carried out. An adequate pocket was identified. The patient was placed in the sitting, upright position. The overlying skin was prepped and draped in sterile fashion. 1% lidocaine was administered subcutaneously for local anesthesia. Under ultrasound guidance, a 5 Thai thoracentesis needle/catheter system was advanced into the right posterior lower pleural fluid collection. Approximately 1350 mL of lew-colored fluid was drained. The catheter was removed, and a sterile dressing was applied. A specimen was collected and sent to the laboratory for analysis, as requested by the referring clinician. The patient tolerated the procedure well. A chest x-ray was ordered. US/Thoracentesis W US IMPRESSION: Ultrasound-guided right thoracentesis. Electronically Signed: Nico Goode MD at 14:52 EDT , Service support ,
[2021-01-15 22:56] LABS: Bedside Glucose 148 mg/dL (70-110)
[2021-01-16] VITALS (8 sets, daily range): BP systolic 106–111; BP diastolic 67–77; PULSE 81–100; RESP 18; TEMP 36.3–36.7; O2SAT 89–98
[2021-01-16] MEDS: Levothyroxine 150 MCG Tablet PO (06:06)
[2021-01-16] MEDS: Menthol/Lanolin/Calamine/Znox 113 GM Tube 1 APPLIC TOPICAL (06:08)
[2021-01-16] MEDS: Pantoprazole Sodium 40 MG Tablet PO (06:10)
[2021-01-16 06:46] LABS: Bedside Glucose 89 mg/dL (70-110)
[2021-01-16 07:37] LABS: Absolute Lymphocyte Count 1.58 X10^3/uL (0.83-4.51); Absolute Neutrophil Count 4.9 X10^3/uL (2.0-7.7); Basophil# 0.03 X10^3/uL; Basophil% 0.4 % (0-1); Eosinophil# 0.06 X10^3/uL; Eosinophils% 0.8 % (0-5); Hematocrit 40.8 % (37-47); Hemoglobin 13.5 g/dL (12.0-15.0); Lymphocyte # 1.58 X10^3/ul (0.83-4.51); Lymphocyte % 20.4 % (19-41); Mean Corp Hgb Conc 33.1 g/dL (32-36); Mean Corpuscular Hgb 34.4 pg (27.0-32.0); Mean Corpuscular Volume 103.8 fL (81-99); Mean Platelet Vol. 10.5 fl (6.2-12.0); Monocyte# 1.08 X10^3/uL; NRBC Flagged by Analyzer 0 % (0-5); Neutrophil # 4.94 X10^3/uL (2.7-7.7); Neutrophil % 63.8 % (47-70); Platelet Count 267 K/mm3 (150-450); RBC Distribution Width CV 13.5 % (11.6-14.6); RBC Distribution Width SD 51.8 fl (35.1-43.9); Red Blood Count 3.93 M/mm3 (4.2-5.4); White Blood Count 7.7 K/mm3 (4.4-11.0)
[2021-01-16 07:52] LABS: Anion Gap 9 (5-15); BUN 30 mg/dL (7-18); BUN/Creat Ratio 24.8 RATIO (10-20); Calcium,Total 8.4 mg/dL (8.5-10.1); Chloride 98 mmol/L (98-107); Creatinine, Serum 1.21 mg/dL (0.55-1.02); EST Glomerular Filtration Rate 45 mL/min (>60); Est Glom Filt Rate - Afr Amer 54 mL/min (>60); Estimated Creatinine Clearance 27.61 ml/min; Glucose 101 mg/dL (74-106); Magnesium 1.4 mg/dL (1.6-2.6); Potassium 2.8 mmol/L (3.5-5.1); Sodium Level 137 mmol/L (136-145)
--- NOTE | 2021-01-16 08:14 | PCS.PANDOC ---
PANDEMIC DOCUMENTATION INITIATED: Date: 12/21/2020 Time: 190
[2021-01-16] MEDS: Ferrous Gluconate 324 MG Tablet PO (08:40)
[2021-01-16] MEDS: Metoprolol Tartrate 25 MG Tablet PO (08:40)
[2021-01-16] MEDS: Furosemide 40 MG/4 ML Vial IV (08:40)
[2021-01-16] MEDS: Potassium Chloride 10mEq/100mL 10 MEQ/100 ML IV.SOLN. 100 MEQ IV BOLUS ×4 (08:47→12:24)
[2021-01-16] MEDS: 0.9% Saline Lock 10 ML Syringe IV (08:48)
[2021-01-16 09:17] LABS: LDH 305 U/L (84-246)
--- NOTE | 2021-01-16 10:21 | PCM.DC ---
Discharge Instructions Follow Up Care Test Results: Test results from this visit will be discussed in further detail at your follow-up appointment, if applicable. Discharge Plan Admission Admit Date/Time: 01/14/21 19:58 Primary Reason for Your Visit: CHF exacerbation Attending Provider: James Capps Primary Care Provider: Masha Monk Instructions Patient Instructions: Thoracentesis Dc Discharge Orders/Prescriptions Prescriptions: New spironolactone 25 mg tablet 25 mg PO DAILY Qty: 30 RF: 0 Continued meclizine 25 mg tablet 25 mg PO DAILY PRN (Reason: Dizziness) RF: 0 levothyroxine 150 mcg capsule 150 mcg PO DAILY RF: 0 sennosides-docusate sodium 1 EACH tablet 1 ea PO DAILY RF: 0 glipizide 5 MG tablet 5 mg PO DAILY@0730 RF: 0 pantoprazole 40 MG tablet,delayed release (DR/EC) 40 mg PO DAILY@0730 RF: 0 furosemide [Lasix] 40 mg tablet 40 mg PO DAILY Qty: 30 RF: 2 metoprolol tartrate 25 mg tablet 25 mg PO BID Qty: 180 RF: 3 apixaban 5 mg tablet 5 mg PO BID Qty: 60 RF: 11 Changed ferrous gluconate 240 mg (27 mg iron) tablet 240 mg PO QODAY Qty: 0 RF: 0 Referrals / Follow Up: Masha Monk, ADOPTION SERVICES MANAGER-C [Primary Care Provider] - Disposition Disposition (needs filled in before D/C Order can be placed): Home, Self Care
--- NOTE | 2021-01-16 10:27 | EXP.PCM_ITS ---
Date of Admission: 01/14/21
--- NOTE | 2021-01-16 10:27 | PCM.DEATH ---
Date of Admission: 01/14/21
[2021-01-16 12:01] LABS: Bedside Glucose 192 mg/dL (70-110)
--- NOTE | 2021-01-16 12:07 | PCM.DC.SUM ---
Providers Date of Admission: 01/14/21 Date of Discharge: 01/16/21 Primary Care Physician: JOSE Price Reason For Visit: CHF EXACERBATION WITH BILATERAL PLEURAL EFFUSIONS Diagnosis Discharge Diagnosis (1) Acute on chronic heart failure: Status: Chronic Code(s): I50.9 - Heart failure, unspecified Qualifiers: Heart failure type: diastolic Qualified Code(s): I50.33 - Acute on chronic diastolic (congestive) heart failure Medications at Discharge Home Medications glipizide 5 mg PO DAILY@0730 05/14/17 sennosides-docusate sodium 1 ea PO DAILY 05/14/17 pantoprazole 40 mg PO DAILY@0730 07/26/17 metoprolol tartrate 25 mg tablet 25 mg PO BID #180 tab 05/25/20 levothyroxine 150 mcg capsule 150 mcg PO DAILY 06/09/20 meclizine 25 mg tablet 25 mg PO DAILY PRN 06/09/20 apixaban 5 mg tablet 5 mg PO BID #60 tab 12/08/20 ferrous gluconate 240 mg PO QODAY #0 tab 01/16/21 furosemide [Lasix] 40 mg PO DAILY #30 tab 01/16/21 lisinopril 2.5 mg PO DAILY #30 tab 01/16/21 spironolactone 25 mg PO DAILY #30 tab 01/16/21 Hospital Course Summary of Care Provided Hospital Course: This is a 85-year-old female with history of chronic diastolic heart failure admitted with shortness of breath, worse on exertion for 1 week and leg swelling consistent with acute on chronic diastolic heart failure. 1. Acute on chronic diastolic heart failure secondary to bilateral pleural effusion, right more than left A. fib: Exact exacerbating factor healthcare. Patient recentechocardiogram 12/28/2020 shows EF 50% with left ventricular systolic function lower limits of normal. Ultrasound thoracocentesis was done and 3950 mL lew-colored fluid was drained. Pleural fluid analysis shows transudate. Post thoracocentesis x-ray shows moderate left pleural effusion. Patient Lasix dose was decreased to 40 mg daily as a creatinine went up and moderate hypokalemia and hypomagnesemia which were replaced. BNP elevated. Troponin high-sensitivity was elevated but showed downward trend patient did not have chest pain. On metoprolol 25 mg twice daily. Heart rate is controlled. Heart failure core measures including intake and output, fluid restriction less than 1500 mL, daily weight monitoring, kidney and electrolytes monitoring. Patient discharged on Lasix 40 mg daily along with spironolactone 25 mg and follow-up BMP with PCP in 1 week. If patient gets short of breath on Lasix, can have outpatient thoracocentesis scheduled by PCP as patient does not tolerate higher dose of Lasix. 2. Chronic persistent atrial fibrillation: Heart rate is controlled. Resume Eliquis. 3. Diabetes mellitus type 2: Accu-Cheks and coverage similar sliding scale. Glipizide resumed. 4. Hypothyroidism -Continue levothyroxine DVT prophylaxis-SCDs, pharmacological prophylaxis not indicated patient chronically anticoagulated with Eliquis\ Living will/advanced directive/end of life care: Patient does have living will or advanced directive. Her daughter is power of trade mark attorney for health. Discussed with patient's daughter, Oralia present in the room. After discussion of benefits/risks procedures involved with full code, DNR CC arrest and DNR CC, the patient opted for DNR-CC Arrest with no intubation Patient does not want artificial life support including intubation, tube feed, ventilator and/chest compression, central venous catheter, vasopressor and DC shock if needed Discharge medication reconciliation done. Discharge follow-up instructions completed. Discharge process discussed with the patient and all questions were answered to patient's satisfaction. Total time spent, exact 35 minutes on discharge meds reconciliation, examination, coordination of care with nurses and ancillary staff, review of imaging and blood test and discussion with the patient on follow-up instructions Physical Exam Narrative General: Alert, Oriented x3, Cooperative HEENT: Hard of hearing atraumatic, PERRLA, EOMI, Normocephalic Oral: No Gingival or Mucosal Lesions/ Ulcerations Neck: Supple, No JVD, Negative Carotid Bruits Lungs: Air entry improved on the right side. Left moderate pleural effusion. Shortness of breath resolved. Cardiovascular: A. fib, Normal S1, Normal S2, systolic left second ICS and cardiac apex murmur Abdomen: Bowel Sounds Present, Soft, Non Tender, Non-Distended : No renal angle tenderness. No suprapubic tenderness. Extremities: 2+ bilateral leg edema, Capillary Refill Less than 3 Seconds Skin: No rashes, No breakdown Musculoskeletal: No Tenderness to Palpation of Joints or Extremities Neurological: Cranial nerves II-XII grossly intact, DTR 2+/4 and Symmetrical, Neuro grossly intact Psych/Mental Status: Normal Affect, Appropriate. Weight / BMI Weight Weight: 164 lb 10.965 oz Body Mass Index (BMI) 30.4 ABG / Lab / Microbiology Data Result Diagrams: 01/16/21 06:42 01/16/21 14:15 Laboratory: Laboratory Results - last 24 hr 01/15/21 06:15: Lactate Dehydrogenase Cancelled 01/15/21 14:47: Fluid Glucose 129 H, Fluid Total Protein 2.2, Fluid LDH 62 01/15/21 14:47: Fluid Source THORACENTESIS, Fluid Color YELLOW, Fluid Appearance SL CLDY, Fluid WBC 0.304, Fluid RBC 0.003, Fluid Tot Cell Count 0.332 H, Fld Polynuclear WBCs # 0.042, Fld Polynuclear WBCs % 13.9, Fluid Mononuclear WBCs 0.262, Fld Mononuclear WBCs % 86.1, Fluid Neutrophils 15, Fluid Lymphocytes 61, Fluid Monocytes 19, Fluid Macrophages 5, Fl Pathologist Comment May follow, Fluid Comment 2 SEE COMMENT 01/15/21 17:20: POC Glucose 130 H 01/15/21 22:07: POC Glucose 148 H 01/16/21 06:39: POC Glucose 89 01/16/21 06:42: WBC 7.7, RBC 3.93 L, Hgb 13.5, Hct 40.8, MCV 103.8 H, MCH 34.4 H, MCHC 33.1, RDW Std Deviation 51.8 H, RDW Coeff of Cristi 13.5, Plt Count 267, MPV 10.5, Immature Gran % (Auto) 0.600, Neut % (Auto) 63.8, Lymph % (Auto) 20.4, Lamar % (Auto) 14.0 H, Eos % (Auto) 0.8, Baso % (Auto) 0.4, Absolute Neuts (auto) 4.9, Absolute Lymphs (auto) 1.58, Nucleated RBC % 0 01/16/21 06:42: Sodium 137, Potassium 2.8 L, Chloride 98, Carbon Dioxide 30.0, Anion Gap 9, BUN 30 H, Creatinine 1.21 H, Estim Creat Clear Calc 27.61, Est GFR (MDRD) Af Amer 54 L, Est GFR (MDRD) Non-Af 45 L, BUN/Creatinine Ratio 24.8 H, Glucose 101, Calcium 8.4 L, Magnesium 1.4 L 01/16/21 06:45: Lactate Dehydrogenase 305 H 01/16/21 11:35: POC Glucose 192 H Microbiology: Microbiology 01/15/21 14:50 Fluid - Thoracentesis Fluid Gram Stain - Final 01/14/21 17:56 Nasal Secretion SARS-CoV-2 Antigen (Rapid) - Final Radiography Diagnostic Testing: Radiology Impression Chest X-Ray 01/15/21 14:25 IMPRESSION: Status post right thoracentesis. Tiny right apical pneumothorax. Electronically Signed: Nico Goode MD at 14:53 EDT , Service support , Thoracentesis Ultrasound 01/15/21 22:38 IMPRESSION: Ultrasound-guided right thoracentesis. Electronically Signed: Nico Goode MD at 14:52 EDT , Service support , Meaningful Use Info Meaningful Use Diagnoses (Choose all that apply): CHF CHF JIGNESH/ARB ordered at discharge?: Yes Documented LVEF (%): 65 Discharge Plan Admission Admit Date/Time: 01/14/21 19:58 Primary Reason for Your Visit: CHF exacerbation Attending Provider: James Capps Primary Care Provider: Masha Monk Instructions Patient Instructions: Thoracentesis Dc Discharge Orders/Prescriptions Prescriptions: New spironolactone 25 mg tablet 25 mg PO DAILY Qty: 30 RF: 0 lisinopril 2.5 mg tablet 2.5 mg PO DAILY Qty: 30 RF: 0 Continued meclizine 25 mg tablet 25 mg PO DAILY PRN (Reason: Dizziness) RF: 0 levothyroxine 150 mcg capsule 150 mcg PO DAILY RF: 0 sennosides-docusate sodium 1 EACH tablet 1 ea PO DAILY RF: 0 glipizide 5 MG tablet 5 mg PO DAILY@0730 RF: 0 pantoprazole 40 MG tablet,delayed release (DR/EC) 40 mg PO DAILY@0730 RF: 0 furosemide [Lasix] 40 mg tablet 40 mg PO DAILY Qty: 30 RF: 2 metoprolol tartrate 25 mg tablet 25 mg PO BID Qty: 180 RF: 3 apixaban 5 mg tablet 5 mg PO BID Qty: 60 RF: 11 Changed ferrous gluconate 240 mg (27 mg iron) tablet 240 mg PO QODAY Qty: 0 RF: 0 Referrals / Follow Up: Masha Monk, ELECTRONIC DATA PROCESSING AUDITOR-C [Primary Care Provider] - Disposition Disposition (needs filled in before D/C Order can be placed): Home, Self Care Charges/Coding Visit Charges Inpatient E&M: 61075 Disch Hosp
[2021-01-16 14:42] LABS: Magnesium 2.1 mg/dL (1.6-2.6); Potassium 3.4 mmol/L (3.5-5.1)
[2021-01-16] MEDS: Potassium Chloride Oral Tablet 20 MEQ 40 MEQ PO (16:36)
[2021-01-16 16:50] LABS: Bedside Glucose 119 mg/dL (70-110)
[2021-01-18 13:14] LABS: Pathologist Comment/Body Fluid Reviewed
--- NOTE | 2021-01-19 10:34 | CASEMGMT ---
RN CM Discharge Follow-up Phone Call: JITENDRA: Fortino Strata: 3 Call Date: 01/19/21 Discharge Date: 01/16/21 Time of Call: 1030 Admitting Diagnosis: A/C CHF This RN CM contacted pt via phone in follow-up to pt's discharge. Pt's daughter answered the phone and states pt has been doing well since discharge and reports pt to state her breathing is feeling better. States pt attended a follow-up appointment with Dr. Amado yesterday and there were not any issues identified. Pt's daughter states they obtained pt's medications and denied any questions regarding these. This RN CM spoke with pt who did not sound SOB. Pt states she has been doing well and denied any questions or concerns. Armida Ku RN CM
[2021-01-20 20:40] LABS: pH, Body Fluid 11254 7.6 (Not Estab.)
== END 2021-01-16 17:50 | disposition home or self-care (01) | DRG 292 ==
LOC: ED 17:50 → PCU 20:08
PROVIDERS: Admitting Provider Family Medicine; Emergency Provider Emergency Medicine; PCP Nurse Practitioner Family; Visit Provider Internal Medicine
DX: I11.0 Hypertensive heart disease with heart failure (principal); I48.11 Longstanding persistent atrial fibrillation; J91.8 Pleural effusion in other conditions classified elsewhere; I50.33 Acute on chronic diastolic (congestive) heart failure; J47.9 Bronchiectasis, uncomplicated; E83.42 Hypomagnesemia; E87.6 Hypokalemia; I25.10 Atherosclerotic heart disease of native coronary artery without angina pectoris; E11.9 Type 2 diabetes mellitus without complications; D50.9 Iron deficiency anemia, unspecified; I34.2 Nonrheumatic mitral (valve) stenosis; I35.0 Nonrheumatic aortic (valve) stenosis; I27.21 Secondary pulmonary arterial hypertension; I27.29 Other secondary pulmonary hypertension; Z20.822 Contact with and (suspected) exposure to COVID-19; E03.9 Hypothyroidism, unspecified; E66.9 Obesity, unspecified; Z68.30 Body mass index [BMI] 30.0-30.9, adult; Z79.01 Long term (current) use of anticoagulants; Z79.84 Long term (current) use of oral hypoglycemic drugs; Z79.890 Hormone replacement therapy; Z79.899 Other long term (current) drug therapy; Z95.2 Presence of prosthetic heart valve
CPT/HCPCS: 32555; 36415; 71045; 71046; 80048; 80076; 82945; 82962; 83615; 83735; 83880; 83986; 84132; 84157; 84484; 85025; 85610; 85730; 87070; 87075; 87205; 87426; 88108; 88305; 88313; 89050; 93005; 99285; A4216; J1940

== ENCOUNTER 2021-05-06 15:31 | Emergency (ER) | payer MEDICARE, SELFPAY ==
[2021-05-06 15:31] VITALS: BP 154/94; PULSE 98; RESP 18; TEMP 36.4; O2SAT 98; BMI 30.1
[2021-05-06 15:46] VITALS: O2SAT 96
--- NOTE | 2021-05-06 15:48 | EKG12_ITS ---
Test Reason : PALPS Blood Pressure : / mmHG Vent. Rate : 096 BPM Atrial Rate : 090 BPM P-R Int : 000 ms QRS Dur : 088 ms QT Int : 360 ms P-R-T Axes : 000 -16 094 degrees QTc Int : 454 ms Atrial fibrillation with premature ventricular or aberrantly conducted complexes Low voltage QRS Nonspecific T wave abnormality Abnormal ECG Confirmed by KEVIN TRINIDAD, SAVANAH ([id number]), sports editor SHAVON ALVAREZ ([id number]) on 05/12/2021 11:18:00 AM Referred By: JF Confirmed By:SAVANAH BROWN MD
--- NOTE | 2021-05-06 15:50 | RAD_ITS ---
HISTORY: chest pain. TECHNIQUE: XR Chest 1 View. # of images incl. paperwork: 1. COMPARISON: 01/15/2021. FINDINGS: CARDIOMEDIASTINAL STRUCTURES: Cardiac silhouette obscured with aortic valve replacement again noted. Mediastinal contour unchanged with calcification of the aorta. LUNGS: Patchy bibasilar opacities. PLEURA: Mild to moderate right and mild left pleural effusions. OSSEOUS STRUCTURES: Degenerative change. RAD/Chest 1 View (Portable) IMPRESSION: Right greater than left pleural effusions with bibasilar opacities concerning for pneumonia. at 1626 Reported and signed by: Marielle Milligan MD Electronically Signed: Marielle Milligan MD at 16:25 EST Tel , Service support ,
[2021-05-06 16:01] LABS: Absolute Lymphocyte Count 1.54 X10^3/uL (0.83-4.51); Basophil# 0.05 X10^3/uL; Basophil% 0.8 % (0-1); Eosinophil# 0.16 X10^3/uL; Eosinophils% 2.5 % (0-5); Hematocrit 40.3 % (37-47); Hemoglobin 13.1 g/dL (12.0-15.0); Lymphocyte # 1.54 X10^3/ul (0.83-4.51); Lymphocyte % 24.3 % (19-41); Mean Corp Hgb Conc 32.5 g/dL (32-36); Mean Corpuscular Hgb 34.6 pg (27.0-32.0); Mean Corpuscular Volume 106.3 fL (81-99); Monocyte# 0.53 X10^3/uL; Monocyte% 8.4 % (0-10); NRBC Flagged by Analyzer 0 % (0-5); Neutrophil % 63.2 % (47-70); Platelet Count 351 K/mm3 (150-450); RBC Distribution Width CV 13.6 % (11.6-14.6); RBC Distribution Width SD 52.7 fl (35.1-43.9); Red Blood Count 3.79 M/mm3 (4.2-5.4); White Blood Count 6.3 K/mm3 (4.4-11.0)
[2021-05-06 16:20] LABS: Anion Gap 5 (5-15); BUN 16 mg/dL (7-18); BUN/Creat Ratio 12.7 RATIO (10-20); Calcium,Total 9.2 mg/dL (8.5-10.1); Chloride 108 mmol/L (98-107); Creatinine, Serum 1.26 mg/dL (0.55-1.02); EST Glomerular Filtration Rate 43 mL/min (>60); Est Glom Filt Rate - Afr Amer 52 mL/min (>60); Estimated Creatinine Clearance 26.51 ml/min; Glucose 84 mg/dL (74-106); Potassium 3.8 mmol/L (3.5-5.1); Sodium Level 141 mmol/L (136-145); Troponin-I HS 57 pg/mL (3.0-54.0)
[2021-05-06 16:22] LABS: BNP,B-Type NATRIURETIC PEPTIDE 206.9 pg/mL (0-100)
--- NOTE | 2021-05-06 16:37 | ED.VIS.DYS ---
HPI History of Present Illness Chief Complaint: Shortness of Breath Narrative Narrative: 85-year-old female presenting with shortness of breath. She has a history of CHF, dyspnea on exertion, hypertension, pulmonary arterial hypertension. Patient states that she has been short of breath about a week and she is more fatigable. She is not had fever, chills, body aches. She states she has some swelling in her right foot secondary to gout but other than that she has not had significant leg edema. Patient currently on Lasix and spironolactone. She said no change in her doses. She denies chest pain. [facility] Medical History Acute on chronic heart failure Benign essential hypertension Bronchiectasis Chronic diastolic (congestive) heart failure Diet-controlled type 2 diabetes mellitus GI bleed Hypothyroidism Iron deficiency anemia Longstanding persistent atrial fibrillation Nonobstructive atherosclerosis of coronary artery Nonrheumatic aortic (valve) stenosis Nonrheumatic mitral valve stenosis with insufficiency Obesity Paroxysmal atrial fibrillation Secondary pulmonary arterial hypertension Home Medications glipizide 5 mg PO DAILY@0730 05/14/17 [History Last Taken Unknown] sennosides-docusate sodium 1 ea PO DAILY 05/14/17 [History Last Taken Unknown] pantoprazole 40 mg PO DAILY@0730 07/26/17 [History Last Taken Unknown] metoprolol tartrate 25 mg tablet 25 mg PO BID #180 tab 05/25/20 [Rx Last Taken Unknown] levothyroxine 150 mcg capsule 150 mcg PO DAILY 06/09/20 [History Last Taken Unknown] meclizine 25 mg tablet 25 mg PO DAILY PRN 06/09/20 [History Last Taken Unknown] ferrous gluconate 240 mg PO QODAY #0 tab 01/16/21 [Rx Last Taken Unknown] lisinopril 2.5 mg PO DAILY #30 tab 01/16/21 [Rx Last Taken Unknown] spironolactone 25 mg PO DAILY #30 tab 01/16/21 [Rx Last Taken Unknown] apixaban 5 mg tablet 5 mg PO BID #180 tab 04/16/21 [Rx Last Taken Unknown] furosemide [Lasix] 40 mg PO DAILY #30 tab 05/06/21 [Rx Last Taken Unknown] Allergy/AdvReac Type Severity Reaction Status Date / Time No Known Allergies Allergy Verified 05/06/21 15:35 Family History Son Myocardial infarction, Onset Age: 56 Son CVA (cerebral vascular accident) Surgical History H/O aortic valve replacement (04/10/17) History of cardioversion (07/2017) History of left heart catheterization (LHC) (02/06/17) Social History Smoking Status: Never smoker alcohol intake: never substance use type: does not use caffeine: Yes Type: coffee what type of physical activity do you participate in: none and other details: stretching.rom frequency: 1-2 times per week duration: 15-30 minutes/day seatbelt use: never do you feel safe at home: Yes ROS ROS ED Constitutional Constitutional ED: Denies chills or fever(s) Eyes Eyes: Denies blurry vision or diplopia ENT ENT ED: Denies rhinorrhea or sore throat Cardiovascular Cardiovascular: Denies chest pain or palpitations Respiratory/Chest Respiratory/Chest: Reports cough, dyspnea and dyspnea on exertion Gastrointestinal Gastrointestinal: Denies abdominal pain, nausea or vomiting Genitourinary Genitourinary ED: Denies dysuria or hematuria Musculoskeletal Musculoskeletal: Denies arthralgias or myalgias Integumentary Denies Abrasions or rash Neurologic Neurologic: Denies headache(s) or paresthesias EXAM Physical Exam Const Vital Signs: 05/06/21 15:31 05/06/21 15:46 05/06/21 19:11 Temperature 97.5 F L Temperature Source Temporal Pulse Rate 98 101 H Respiratory Rate 18 20 H Respiratory Effort Short of Breath Respiratory Depth Normal Respiratory Pattern Normal Blood Pressure 154/94 H 169/104 H Blood Pressure Mean 114 125 Pulse Ox 98 96 Oxygen Delivery Method Room Air Room Air Room Air 05/06/21 19:48 Temperature 9 F L Temperature Source Pulse Rate 88 Respiratory Rate 21 H Respiratory Effort Respiratory Depth Respiratory Pattern Blood Pressure 173/93 H Blood Pressure Mean Pulse Ox 96 Oxygen Delivery Method Positive well nourished General Appearance ED: NAD; Negative for pallor HEENT Reports moist mucous membranes atraumatic Eyes PERRL and EOMs intact bilaterally Neck no lymphadenopathy and supple Resp normal respiratory effort Auscultation: diminished lung sounds right lower Cardio regular rate and regular rhythm Neuro oriented x3 Sensorium / Orientation: alert Motor Exam: strength 5/5 throughout Skin General Skin Exam: Negative for jaundice or pallor Lesions: no lesions Rashes: no rashes MDM MDM MDM Narrative Medical decision making narrative: Patient concern for worsening shortness of breath. She is found on her chest x-ray on my interpretation to have right greater than left pleural effusions however she has not hypoxic. Radiologist does read this as possible pneumonia however the patient does not have a white blood cell count that is elevated. She is also not lymphopenic. I did attempt to obtain a rapid Covid however the patient declines this. Patient's BNP is elevated at 206.9. Her high-sensitivity troponin was 57Which is actually lower than her previous and she is not having any chest pain. The patient did report to me that she has been out of her Lasix. She requests to be discharged home and have a refill of her Lasix. Given that she is not hypoxic I feel this is reasonable. I did certified personal finance counselor her on return precautions and make sure that she knew to follow-up with Dr. Jean. Impression: 1. recurrent pleural effusion supply 2. CHF exacerbation Lab Data Attestation: I reviewed the patient's lab results. Labs: Laboratory Results - last 24 hr 05/06/21 05/06/21 05/06/21 15:55 15:55 15:55 WBC 6.3 RBC 3.79 L Hgb 13.1 Hct 40.3 MCV 106.3 H MCH 34.6 H MCHC 32.5 RDW Std Deviation 52.7 H RDW Coeff of Cristi 13.6 Plt Count 351 MPV 10.0 Immature Gran % (Auto) 0.800 Neut % (Auto) 63.2 Lymph % (Auto) 24.3 [place] % (Auto) 8.4 Eos % (Auto) 2.5 Baso % (Auto) 0.8 Absolute Neuts (auto) 4.0 Absolute Lymphs (auto) 1.54 Nucleated RBC % 0 Sodium 141 Potassium 3.8 Chloride 108 H Carbon Dioxide 28.0 Anion Gap 5 BUN 16 Creatinine 1.26 H Estim Creat Clear Calc 26.51 Est GFR (MDRD) Af Amer 52 L Est GFR (MDRD) Non-Af 43 L BUN/Creatinine Ratio 12.7 Glucose 84 Calcium 9.2 Troponin I High Sens 57 H B-Natriuretic Peptide 206.9 H Radiography Diagnostic Testing: Clinical Impression(s) from Imaging Studies Chest X-Ray 05/06/21 15:50 IMPRESSION: Right greater than left pleural effusions with bibasilar opacities concerning for pneumonia. at 1626 Reported and signed by: Marielle Milligan MD Electronically Signed: Marielle Milligan MD at 16:25 EST Tel , Service support , Discharge Plan Triage Chief Complaint: Shortness of Breath ED Provider: Jaquan Calvillo Dx/Rx/DC Orders Instructions: ED Heart Failure, Congestive (CHF), ED Pleural Effusion Prescriptions: Continued furosemide [Lasix] 40 mg tablet 40 mg PO DAILY Qty: 30 RF: 0 No Action meclizine 25 mg tablet 25 mg PO DAILY PRN (Reason: Dizziness) RF: 0 levothyroxine 150 mcg capsule 150 mcg PO DAILY RF: 0 sennosides-docusate sodium 1 EACH tablet 1 ea PO DAILY RF: 0 glipizide 5 MG tablet 5 mg PO DAILY@0730 RF: 0 pantoprazole 40 MG tablet,delayed release (DR/EC) 40 mg PO DAILY@0730 RF: 0 spironolactone 25 mg tablet 25 mg PO DAILY Qty: 30 RF: 0 ferrous gluconate 240 mg (27 mg iron) tablet 240 mg PO QODAY Qty: 0 RF: 0 lisinopril 2.5 mg tablet 2.5 mg PO DAILY Qty: 30 RF: 0 metoprolol tartrate 25 mg tablet 25 mg PO BID Qty: 180 RF: 3 apixaban 5 mg tablet 5 mg PO BID Qty: 180 RF: 4 Primary Care Provider: Masha Monk Referrals: Eliud Jean MD [STAFF PHYSICIAN] - As soon as possible Masha Monk, SENIOR COMMERCIAL LOAN OFFICER-C [Primary Care Provider] - Disposition Disposition: Home, Self Care Discharge Date/Time: 05/06/21 20:04
[2021-05-06 19:11] VITALS: BP 169/104; PULSE 101; RESP 20; O2SAT 96; O2SAT 97
[2021-05-06 19:48] VITALS: BP 173/93; PULSE 88; RESP 21; TEMP -12.7; TEMP 9; O2SAT 96
== END 2021-05-06 20:04 | disposition home or self-care (01) ==
PROVIDERS: Emergency Provider Student in an Organized Health Care Education/Training Program; PCP Nurse Practitioner Family
DX: I11.0 Hypertensive heart disease with heart failure (principal); I50.33 Acute on chronic diastolic (congestive) heart failure; I27.21 Secondary pulmonary arterial hypertension; I48.11 Longstanding persistent atrial fibrillation; I35.0 Nonrheumatic aortic (valve) stenosis; E11.9 Type 2 diabetes mellitus without complications; D50.9 Iron deficiency anemia, unspecified; E03.9 Hypothyroidism, unspecified; E66.9 Obesity, unspecified; Z79.01 Long term (current) use of anticoagulants; Z79.84 Long term (current) use of oral hypoglycemic drugs; Z79.890 Hormone replacement therapy; Z79.899 Other long term (current) drug therapy
CPT/HCPCS: 71045; 80048; 83880; 84484; 85025; 93005; 99284; A4216

== ENCOUNTER 2023-03-23 12:33 | Inpatient (IN) | payer MEDICARE, SELFPAY ==
[2023-03-23] VITALS (9 sets, daily range): BP systolic 125–140; BP diastolic 64–74; PULSE 95–111; RESP 15–20; TEMP 36.2–37; O2SAT 90–95; BMI 29.5; BMI 29.1
--- NOTE | 2023-03-23 12:38 | RAD_ITS ---
STUDY: X-RAY CHEST REASON FOR EXAM: Female, 87 years old. Shortness of breath. TECHNIQUE: Frontal and lateral views of the chest. COMPARISON: May 06, 2021 FINDINGS: Cardiomegaly with aortic tortuosity and calcification and prominent central pulmonary arteries unchanged. Stable aortic graft. Hyperinflation with bilateral pleural effusions and decreased opacities at both bases. Residual opacities in both bases, right greater than left, which may represent atelectasis or early/developing pneumonia. Bilateral pleural effusions, left greater than right, slightly decreased since the prior study. No abnormality of the visualized soft tissue structures of the upper abdomen. RAD/Chest PA and Lateral IMPRESSION: Cardiomegaly with decreased opacities at both bases and decrease in bilateral pleural effusions. No acute or emergent finding. Electronically Signed: Nick Duffy MD at 13:02 EST ,
[2023-03-23 13:11] LABS: Absolute Lymphocyte Count 0.75 X10^3/uL (0.83-4.51); Absolute Neutrophil Count 7.2 X10^3/uL (2.0-7.7); Basophil# 0.03 X10^3/uL; Basophil% 0.3 % (0-1); Eosinophil# 0.05 X10^3/uL; Eosinophils% 0.6 % (0-5); Hematocrit 34.3 % (37-47); Hemoglobin 11.2 g/dL (12.0-15.0); Lymphocyte # 0.75 X10^3/ul (0.83-4.51); Lymphocyte % 8.4 % (19-41); Mean Corp Hgb Conc 32.7 g/dL (32-36); Mean Corpuscular Hgb 34.9 pg (27.0-32.0); Mean Corpuscular Volume 106.9 fL (81-99); Mean Platelet Vol. 9.5 fl (6.2-12.0); Monocyte% 7.9 % (0-10); NRBC Flagged by Analyzer 0 % (0-5); Neutrophil # 7.24 X10^3/uL (2.7-7.7); Neutrophil % 81.6 % (47-70); Platelet Count 292 K/mm3 (150-450); RBC Distribution Width CV 12.8 % (11.6-14.6); RBC Distribution Width SD 50.4 fl (35.1-43.9); Red Blood Count 3.21 M/mm3 (4.2-5.4); White Blood Count 8.9 K/mm3 (4.4-11.0)
[2023-03-23 13:28] LABS: ALB/GLOB Ratio 0.7 RATIO (0.9-2.4); AST(SGOT) 18 U/L (15-37); Alanine Aminotransfer ALT/SGPT 21 U/L (13-56); Albumin, Serum 3.1 g/dL (3.2-5.0); Alkaline Phosphatase 87 U/L (45-117); Anion Gap 4 (5-15); BUN 21 mg/dL (7-18); Calcium,Total 8.7 mg/dL (8.5-10.1); Chloride 103 mmol/L (98-107); EST Glomerular Filtration Rate 35 mL/min (>60); Est Glom Filt Rate - Afr Amer 42 mL/min (>60); Estimated Creatinine Clearance 21.45 ml/min; Globulin 4.5 g/dL (2.2-4.2); Glucose 122 mg/dL (74-106); Potassium 3.5 mmol/L (3.5-5.1); Protein, Total 7.6 g/dL (6.4-8.2); Sodium Level 137 mmol/L (136-145)
[2023-03-23 13:41] LABS: BNP,B-Type NATRIURETIC PEPTIDE 220.4 pg/mL (0-100)
--- NOTE | 2023-03-23 14:44 | EDS_ITS ---
HPI History of Present Illness Chief Complaint: Weakness Informant: patient and family Onset/Context/Timing Onset: Weeks Context: Gradual Onset Timing: Continuous Quality: Weakness Location: Generalized Worsened by: Nothing Relieved by: Nothing Narrative Narrative: Pain presents with weakness, cough, shortness of breath, and swelling that has been getting worse over the past couple weeks. Patient states she is coughing up some yellow sputum. Patient denies any fevers or chills. The patient denies any chest pain. Patient states her breathing becomes short of breath when she walks anywhere. Patient states her abdomen has also been feeling bloated over the past couple weeks. Patient states nothing makes her symptoms better nothing makes them worse. 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) Hypothyroidism Iron deficiency anemia Longstanding persistent atrial fibrillation Nonobstructive atherosclerosis of coronary artery Nonrheumatic aortic (valve) stenosis Nonrheumatic mitral valve stenosis with insufficiency Obesity Paroxysmal atrial fibrillation Secondary pulmonary arterial hypertension Home Medications glipizide 5 mg tablet 5 mg PO DAILY@0730 diabetes 05/14/17 [History Last Taken Unknown] sennosides 8.6 mg-docusate sodium 50 mg tablet 1 ea PO DAILY stool softner 05/14/17 [History Last Taken Unknown] pantoprazole 40 mg tablet,delayed release 40 mg PO DAILY@0730 GI 07/26/17 [History Last Taken Unknown] levothyroxine 150 mcg capsule 150 mcg PO DAILY 06/09/20 [History Last Taken Unknown] meclizine 25 mg tablet 25 mg PO DAILY PRN Dizziness 06/09/20 [History Last Taken Unknown] ferrous gluconate 240 mg (27 mg iron) tablet 240 mg PO QODAY #0 tabs 01/16/21 [Rx Last Taken Unknown] apixaban 5 mg tablet 5 mg PO BID #180 tabs 03/24/22 [Rx Last Taken Unknown] furosemide 40 mg tablet (Lasix) 40 mg PO DAILY #90 tabs 07/01/22 [Rx Last Taken Unknown] spironolactone 25 mg tablet 25 mg PO DAILY #90 tabs 07/01/22 [Rx Last Taken Unknown] lisinopril 2.5 mg tablet 2.5 mg PO DAILY #90 tabs 09/14/22 [Rx Last Taken Unknown] metoprolol tartrate 25 mg tablet 25 mg PO BID #180 tabs 09/14/22 [Rx Last Taken Unknown] Allergy/AdvReac Type Severity Reaction Status Date / Time No Known Allergies Allergy Verified 10/04/22 09:47 Family History (Reviewed 10/04/22 @ 10:24 by Yony Hewitt TYPEWRITER ASSEMBLY AND PARTS INSPECTOR, TYPEWRITER ASSEMBLY AND PARTS INSPECTOR-C) Son Myocardial infarction, Onset Age: 56 Son CVA (cerebral vascular accident) Surgical History History of cardioversion (07/2017) History of hysterectomy History of left heart catheterization (LHC) (02/06/17) Hx of appendectomy Social History Smoking Status: Never smoker alcohol intake: never substance use type: does not use caffeine: Yes Type: coffee what type of physical activity do you participate in: none and other details: stretching.rom frequency: 1-2 times per week duration: 15-30 minutes/day seatbelt use: never do you feel safe at home: Yes ROS ROS ED Constitutional Constitutional ED: Denies chills or fever(s) Eyes Eyes: Denies blurry vision or change in vision ENT ENT ED: Denies rhinorrhea or sore throat Cardiovascular Cardiovascular: Denies chest pain or palpitations Respiratory/Chest Respiratory/Chest: Reports cough, dyspnea and sputum Gastrointestinal Gastrointestinal: Denies nausea or vomiting Genitourinary Genitourinary ED: Denies dysuria or hematuria Musculoskeletal Musculoskeletal: Denies back pain or neck pain Integumentary Denies abscess or rash Neurologic Neurologic: Denies headache(s) or weakness Allergic/Immunologic Allergic/Immunologic ED: Denies mouth swelling or urticaria EXAM Physical Exam Const Vital Signs: 03/23/23 12:34 03/23/23 14:22 03/23/23 15:02 Temperature 97.2 F L Temperature Source Temporal Pulse Rate 111 H 105 H Respiratory Rate 20 H 17 Respiratory Effort Normal Non-Labored Respiratory Pattern Normal Blood Pressure 133/64 H Blood Pressure Mean 87 Pulse Ox 95 95 Oxygen Delivery Method Room Air Room Air 03/23/23 17:00 03/23/23 17:46 Temperature Temperature Source Pulse Rate 95 103 H Respiratory Rate 16 15 Respiratory Effort Respiratory Pattern Blood Pressure 125/67 H 140/74 H Blood Pressure Mean 86 96 Pulse Ox 94 93 Oxygen Delivery Method Room Air Positive well nourished and well developed General Appearance ED: well developed and NAD HEENT Reports moist mucous membranes Neck supple and no JVD Resp normal respiratory effort Auscultation: rales bilateral base Cardio regular rate Rhythm: abnormal rhythm irregularly irregular GI non-tender Inspection: abdominal distention Palpation: soft Neuro oriented x3, CN's II-XII intact bilaterally and no sensory deficits noted Sensorium / Orientation: alert Motor Exam: strength 5/5 throughout Psych mental status grossly normal MDM MDM MDM Narrative Medical decision making narrative: Differential diagnosis includes congestive heart failure, pneumonia, viral in fection, cardiac dysrhythmia, cardiac ischemia, pulmonary embolism, coagulopathy, and electrolyte abnormality. EKG will be obtained to assess for cardiac dysrhythmia and cardiac ischemia. CBC will be obtained to assess for leukocytosis and anemia. Basic metabolic profile will be obtained to assess for electrolyte abnormality and renal function. BNP will be obtained to assess for congestive heart failure. High-sensitivity troponin will be obtained to assess for cardiac ischemia. Urinalysis will be obtained to assess for urinary tract infection. PT with INR and PTT will be obtained to assess for coagulopathy. Chest x-ray will be obtained to assess for congestive heart failure and pneumonia. CT scan of the abdomen pelvis will be obtained to assess for bowel obstruction, free fluid and ascites. Lab Data Attestation: I reviewed the patient's lab results. Lab results narrative: CBC was reviewed. There is a mild anemia with a hemoglobin of 11.2 and hematocrit 34.3. Comprehensive metabolic profile was reviewed. BUN was 21 and creatinine was 1.5. The remainder was within normal limits. BNP was reviewed and was slightly elevated at 220.4. Urinalysis was reviewed. There is no evidence of urinary tract infection or hematuria. Labs: Laboratory Results - last 24 hr 03/23/23 03/23/23 13:00 15:30 WBC 8.9 RBC 3.21 L Hgb 11.2 L Hct 34.3 L MCV 106.9 H MCH 34.9 H MCHC 32.7 RDW Std Deviation 50.4 H RDW Coeff of Cristi 12.8 Plt Count 292 MPV 9.5 Immature Gran % (Auto) 1.200 H Neut % (Auto) 81.6 H Lymph % (Auto) 8.4 L [place] % (Auto) 7.9 Eos % (Auto) 0.6 Baso % (Auto) 0.3 Absolute Neuts (auto) 7.2 Absolute Lymphs (auto) 0.75 L Nucleated RBC % 0 PT 24.7 H INR 2.2 APTT 43.9 H Sodium 137 Potassium 3.5 Chloride 103 Carbon Dioxide 30.0 Anion Gap 4 L BUN 21 H Creatinine 1.50 H Estim Creat Clear Calc 21.45 Est GFR (MDRD) Af Amer 42 L Est GFR (MDRD) Non-Af 35 L BUN/Creatinine Ratio 14.0 Glucose 122 H Calcium 8.7 Total Bilirubin 1.20 H AST 18 ALT 21 Alkaline Phosphatase 87 Troponin I High Sens 39 B-Natriuretic Peptide 220.4 H Total Protein 7.6 Albumin 3.1 L Globulin 4.5 H Albumin/Globulin Ratio 0.7 L Urine Color Yellow Urine Clarity Clear Urine pH 7.0 Ur Specific [place] 1.005 Urine Protein Negative Urine Glucose (UA) Normal Urine Ketones Negative Urine Occult Blood Negative Urine Nitrite Negative Urine Bilirubin Negative Urine Urobilinogen Normal Ur Leukocyte Esterase Negative Urine RBC 0-5 SEEN Urine WBC 0 SEEN Ur Squamous Epith Cells 0-5 SEEN Urine Bacteria 0 SEEN Urine Mucus 0 SEEN Radiography Chest X-Ray - ED: 2 View, Read by ED Physician, Read by Radiologist, No Acute Disease, Cardiomegaly, Right Effusion and Left Effusion Diagnostic Testing: Clinical Impression(s) from Imaging Studies Chest X-Ray 03/23/23 12:38 IMPRESSION: Cardiomegaly with decreased opacities at both bases and decrease in bilateral pleural effusions. No acute or emergent finding. Electronically Signed: Nick Duffy MD at 13:02 EST , Abdomen/Pelvis CT 03/23/23 15:02 IMPRESSION: Hepatomegaly. Status post cholecystectomy. Marked distention of the urinary bladder. Sigmoid diverticulosis. Bilateral pleural effusions with bibasilar atelectasis. Electronically Signed: Nico Goode MD at 15:28 EST , Chest x-ray was obtained. There are 2 views. On my independent interpretation, there is cardiomegaly and bilateral pleural effusions. There is no acute cardiopulmonary process noted. Bony thorax is normal. Radiologist also interpreted the x-rays and agrees. CT scan of the abdomen pelvis was obtained. There is hepatomegaly. There is urinary bladder distention. There is diverticulosis. There is no ascites noted. There is no free air or free fluid. This was interpreted by the radiologist and was also independently reviewed by myself. EKG Initial EKG: Attestation: I personally reviewed and interpreted this EKG as follows: Interpretation: Atrial Fibrillation (108) and Non-Specific ST Changes Comments: EKG was obtained. On my independent interpretation, it shows atrial fibrillation with a rate of 108. There are no acute ST or T wave changes noted. QRS interval was normal at 84 ms. QTc interval was normal at 447 ms. [place] was normal at 49. This was unchanged compared to previous EKG dated 05/06/2021. Prior EKG tracings: available for review Prior: Unchanged (05/06/2021) Treatment and Re-Evaluation :: Patient was given a dose of Lasix here. Case was discussed with the hospitalist. She will admit the patient to her service. Patient and family understood and were agreeable with the plan. All questions were answered. Discharge Plan Triage Chief Complaint: Weakness ED Provider: Nicholas Rao Dx/Rx/DC Orders Clinical Impression: Congestive heart failure, Generalized weakness, Atrial fibrillation Prescriptions: No Action meclizine 25 mg tablet 25 mg PO DAILY PRN (Reason: Dizziness) levothyroxine 150 mcg capsule 150 mcg PO DAILY sennosides-docusate sodium 1 EACH tablet 1 ea PO DAILY glipizide 5 MG tablet 5 mg PO DAILY@0730 pantoprazole 40 MG tablet,delayed release (DR/EC) 40 mg PO DAILY@0730 ferrous gluconate 240 mg (27 mg iron) tablet 240 mg PO QODAY Qty: 0 0RF apixaban 5 mg tablet 5 mg PO BID Qty: 180 4RF spironolactone 25 mg tablet 25 mg PO DAILY Qty: 90 3RF furosemide [Lasix] 40 mg tablet 40 mg PO DAILY Qty: 90 3RF lisinopril 2.5 mg tablet 2.5 mg PO DAILY Qty: 90 3RF metoprolol tartrate 25 mg tablet 25 mg PO BID Qty: 180 3RF Primary Care Provider: Masha Monk Referrals: Masha Monk, TYPEWRITER ASSEMBLY AND PARTS INSPECTOR-C [Primary Care Provider] - Disposition Disposition: Acute Care Hospital [facility]
--- NOTE | 2023-03-23 15:02 | EKG12_ITS ---
Test Reason : DIZZINESS Blood Pressure : / mmHG Vent. Rate : 108 BPM Atrial Rate : 000 BPM P-R Int : 000 ms QRS Dur : 084 ms QT Int : 334 ms P-R-T Axes : 000 049 121 degrees QTc Int : 447 ms Atrial fibrillation with rapid ventricular response Low voltage QRS Nonspecific ST and T wave abnormality Abnormal ECG Confirmed by KEVIN TRINIDAD, SAVANAH ([id number]), film and video editor MNOCHO TORRES ([id number]) on 03/29/2023 11:59:40 AM Referred By: Confirmed By:SAVANAH BROWN MD
--- NOTE | 2023-03-23 15:02 | CT_ITS ---
STUDY: CT ABDOMEN AND PELVIS WITHOUT CONTRAST REASON FOR EXAM: Female, 87 years old. Abdominal pain. Weakness. RADIATION DOSAGE (If Supplied By Facility): CTDIvol = ( 10.03 ) mGy, DLP = ( 438.64 ) mGycm TECHNIQUE: Transaxial images were obtained from the dome of the diaphragm to the symphysis pubis without oral contrast, and without intravenous contrast. Sagittal and coronal images were reconstructed. Individualized dose optimization techniques were used for this CT. COMPARISON: None. FINDINGS: Bilateral pleural effusions with bibasilar dependent atelectasis. Prostatic aortic valve. Coronary artery calcification. Mild hepatomegaly. There are surgical clips in the gallbladder fossa consistent with a prior cholecystectomy. Normal spleen. Normal pancreas. Normal bilateral adrenal glands. Normal right kidney. There is a 1.3 cm cyst in the lateral aspect of the left kidney. Normal visualized stomach. Normal small intestine. There are multiple colonic diverticula consistent with diverticulosis. The appendix is visualized and appears normal. There is diffuse atherosclerotic calcification of the abdominal aorta, without a demonstrated aneurysm. Normal inferior vena cava. Normal retroperitoneum. Markedly distended urinary bladder. Prior hysterectomy. Normal abdominal wall. There are diffuse degenerative changes of the visualized lumbar spine. CT/Abdomen/Pelvis without Cont IMPRESSION: Hepatomegaly. Status post cholecystectomy. Marked distention of the urinary bladder. Sigmoid diverticulosis. Bilateral pleural effusions with bibasilar atelectasis. Electronically Signed: Nico Goode MD at 15:28 EST ,
[2023-03-23 15:26] LABS: International Normalized Ratio 2.2; Prothrombin Time (Protime)PT. 24.7 SECONDS (11.7-14.9)
[2023-03-23 15:27] LABS: Partial Thromboplast Time 43.9 Seconds (24.1-36.2)
[2023-03-23 15:34] LABS: Troponin-I HS 39 pg/mL (3.0-54.0)
[2023-03-23 15:38] LABS: Bacteria 0 SEEN /hpf (None Seen); Mucous, Urine 0 SEEN /hpf (<or=2+); White Blood Cells 0 SEEN /hpf (0-5)
[2023-03-23 15:41] LABS: Color, Urine Yellow (Yellow); Glucose, Dipstick Normal (Normal); Ketone-Dipstick Negative (Negative); Leukocyte Esterase-Dipstick Negative /ul (Negative); Nitrite-Dipstick Negative (Negative); Occult Blood-Urine Negative /ul (Negative); Protein-Dipstick Negative (Negative); Specific Gravity, Urine 1.005 (1.002-1.030); Urine Bilirubin Dipstick Negative (Negative); Urine Clarity Clear (Clear); Urine Urobilinogen Normal (Normal)
[2023-03-23 16:14] LABS: Red Blood Cells-Urine 0-5 SEEN /hpf (0-5); Squamous Epithelial Cells - UA 0-5 SEEN /hpf (5-10)
--- NOTE | 2023-03-23 17:26 | PCM.HP.STD ---
HPI - General General Date of Admission: 03/23/23 Date of Service: 03/23/23 Chief Complaint: Dyspnea, orthopnea, increased BL LE edema. HPI Narrative The patient is an 87 y/o F w/ PMHx: CKD stage III unclear subtype, Obesity, HFpEF, HTN, HLD, PAF, Valvular Heart Disease s/p TAVR, Hx GI bleed, Nonobstructive CAD, Chronic anemia/Fe deficiency, Hypothyroidism who presents to the [facility] ED on 03/23/2023 with history of generalized weakness progressively worsening over the last several weeks with reported cough, dyspnea worse with exertion and increased lower extremity swelling with sputum reported to be yellow with no fevers or chills nor any chest discomfort as well as sensation of abdominal bloating and orthopnea over the last several weeks prompting eventual ED evaluation. Work-up in the ED included T97.2, heart rate 111, BP 133/64, respiratory rate 20, 95% on room air, CBC with WBC 8.9, 11.2, MCV 106.9, platelet 292 with increased immature granulocytes and lymphocytosis, CMP with BUN/creatinine 21/1.50, glucose 112, T. bili 1.20 otherwise hepatic profile not marked appearing, BNP 220.4, urinalysis with no obvious evidence of UTI, coags with INR 2.2, PT 24.7, PTT 43.9, chest x-ray with cardiomegaly and opacities at both bases as well as bilateral pleural effusions however these are decreased since her previous study with effusions noted left greater than right of note, EKG rate controlled atrial fibrillation with nonspecific ST changes, CT A/P with evidence of hepatomegaly, status postcholecystectomy, marked distention of the urinary bladder, sigmoid diverticulosis, bilateral pleural effusions with bibasilar atelectasis. In the ED patient ministered Lasix 40 mg IV x1. [facility] Medical History (Updated 03/23/23 @ 19:[address] Devorah Montenegro MD) (HFpEF) heart failure with preserved ejection fraction Anxiety Benign essential hypertension Bronchiectasis Diet-controlled type 2 diabetes mellitus GI bleed Hepatitis History of transcatheter aortic valve replacement (TAVR) (04/10/17) Hypertension Hypothyroidism Iron deficiency anemia Longstanding persistent atrial fibrillation Non-smoker Nonobstructive atherosclerosis of coronary artery Nonrheumatic aortic (valve) stenosis Nonrheumatic mitral valve stenosis with insufficiency Obesity Secondary pulmonary arterial hypertension Home Medications glipizide 5 mg tablet 5 mg PO DAILY@0730 diabetes 05/14/17 [History Last Taken Unknown] sennosides 8.6 mg-docusate sodium 50 mg tablet 1 ea PO DAILY stool softner 05/14/17 [History Last Taken Unknown] pantoprazole 40 mg tablet,delayed release 40 mg PO DAILY@0730 GI 07/26/17 [History Last Taken Unknown] levothyroxine 150 mcg capsule 150 mcg PO DAILY 06/09/20 [History Last Taken Unknown] meclizine 25 mg tablet 25 mg PO DAILY PRN Dizziness 06/09/20 [History Last Taken Unknown] ferrous gluconate 240 mg (27 mg iron) tablet 240 mg PO QODAY #0 tabs 01/16/21 [Rx Last Taken Unknown] apixaban 5 mg tablet 5 mg PO BID #180 tabs 03/24/22 [Rx Last Taken Unknown] furosemide 40 mg tablet (Lasix) 40 mg PO DAILY #90 tabs 07/01/22 [Rx Last Taken Unknown] spironolactone 25 mg tablet 25 mg PO DAILY #90 tabs 07/01/22 [Rx Last Taken Unknown] lisinopril 2.5 mg tablet 2.5 mg PO DAILY #90 tabs 09/14/22 [Rx Last Taken Unknown] metoprolol tartrate 25 mg tablet 25 mg PO BID #180 tabs 09/14/22 [Rx Last Taken Unknown] mirtazapine 15 mg tablet 30 mg PO QHS sleep 03/23/23 [History Last Taken Unknown] Allergy/AdvReac Type Severity Reaction Status Date / Time No Known Allergies Allergy Verified 10/04/22 09:47 Family History (Updated 03/23/23 @ 19:[address] Devorah Montenegro MD) Son Myocardial infarction, Onset Age: 56 Son CVA (cerebral vascular accident) Mother Cancer Father Lung disease Surgical History History of cardioversion (07/2017) History of hysterectomy History of left heart catheterization (LHC) (02/06/17) Hx of appendectomy Social History (Updated 03/23/23 @ 19:[address] Devorah Montenegro MD) household members: family Smoking Status: Never smoker alcohol intake: never substance use type: does not use caffeine: Yes Type: coffee what type of physical activity do you participate in: none and other details: stretching.rom frequency: 1-2 times per week duration: 15-30 minutes/day seatbelt use: never do you feel safe at home: Yes ROS ROS Narrative Admission Review of Systems: CONSTITUTIONAL: No weight loss, fever, chills, + weakness or fatigue. HEENT: Eyes: No visual loss, blurred vision, double vision or yellow sclerae. Ears, Nose, Throat: No hearing loss, sneezing, congestion, runny nose or sore throat. SKIN: No rash or itching, lesions, wounds. CARDIOVASCULAR: + Dyspnea, orthopnea, increased edema. No chest pain, chest pressure or chest discomfort, palpitations, syncopal events. RESPIRATORY: + Shortness of breath, cough with occasional productive sputum. No wheezing, hemoptysis. GASTROINTESTINAL: No anorexia, nausea, vomiting or diarrhea, abdominal pain, melena, BRBPR. GENITOURINARY: No dysuria, frequency, urgency or retention. NEUROLOGICAL: + headache. No dizziness, syncope, paralysis, ataxia, numbness or tingling in the extremities, focal weakness, change in bowel or bladder control, seizure. MUSCULOSKELETAL: + muscle, back pain, joint pain or stiffness. HEMATOLOGIC: + anemia, easy bleeding or bruising. LYMPHATICS: No enlarged nodes. No history of splenectomy. PSYCHIATRIC: No history of depression or anxiety. ENDOCRINOLOGIC: No reports of sweating, cold or heat intolerance. No polyuria or polydipsia. ALLERGIES: No history of asthma, hives, eczema or rhinitis. Vital Signs Vital Signs Vital Signs: 03/23/23 12:34 03/23/23 14:22 03/23/23 15:02 Temperature 97.2 F L Temperature Source Temporal Pulse Rate 111 H 105 H Respiratory Rate 20 H 17 Respiratory Effort Normal Non-Labored Respiratory Pattern Normal Blood Pressure 133/64 H Blood Pressure Mean 87 Pulse Ox 95 95 Oxygen Delivery Method Room Air Room Air 03/23/23 17:00 Temperature Temperature Source Pulse Rate 95 Respiratory Rate 16 Respiratory Effort Respiratory Pattern Blood Pressure 125/67 H Blood Pressure Mean 86 Pulse Ox 94 Oxygen Delivery Method Room Air Weight Weight: 167 lb 0.016 oz Body Mass Index (BMI) 29.5 Physical Exam Narrative Physical Examination: General: Awake, alert, oriented x 3 and cooperative, seated upright in the ED bed, fatigued. Skin: Normal color, normal turgor, no icterus, no cyanosis except occasional staged ecchymoses. HEENT: AT/NC, EOMI, PERRLA, MMM, no carotid bruits, + JVD noted. Lungs: Diminished, greater bases, very mild Rales bases, no evidence of any distress but mildly increased respiratory rate, no rhonchi or wheezing. Heart: Irregular, mildly tachycardic, rate controlled; no gallop, rub audible, + SM. Abdomen: Soft, NTTP, mildly to moderately distended with tympanic sounds with palpation, hyperactive BS, no appreciated HSM. Extremities: No cyanosis, no clubbing, pedal to proximal colon 1-2+ pitting edema. Neurological: Patient awake, alert, oriented as noted, cognitive function intact; pupils equally reactive to light and accommodation, cranial nerves II-XII grossly normal, moving all 4 extremities, no focal deficits, strength moderately to severely global decrease can [place] to acute presentation complaints. Psychiatric: Affect appears fatigued otherwise appropriate, no acute evidence of depressive or anxiety feelings. Results Lab / Micro Data 03/23/23 13:00 03/23/23 13:00 Labs: Laboratory Results - last 24 hr 03/23/23 13:00: WBC 8.9, RBC 3.21 L, Hgb 11.2 L, Hct 34.3 L, MCV 106.9 H, MCH 34.9 H, MCHC 32.7, RDW Std Deviation 50.4 H, RDW Coeff of Cristi 12.8, Plt Count 292, MPV 9.5, Immature Gran % (Auto) 1.200 H, Neut % (Auto) 81.6 H, Lymph % (Auto) 8.4 L, [place] % (Auto) 7.9, Eos % (Auto) 0.6, Baso % (Auto) 0.3, Absolute Neuts (auto) 7.2, Absolute Lymphs (auto) 0.75 L, Nucleated RBC % 0, PT 24.7 H, INR 2.2, APTT 43.9 H, Sodium 137, Potassium 3.5, Chloride 103, Carbon Dioxide 30.0, Anion Gap 4 L, BUN 21 H, Creatinine 1.50 H, Estim Creat Clear Calc 21.45, Est GFR (MDRD) Af Amer 42 L, Est GFR (MDRD) Non-Af 35 L, BUN/Creatinine Ratio 14.0, Glucose 122 H, Calcium 8.7, Total Bilirubin 1.20 H, AST 18, ALT 21, Alkaline Phosphatase 87, Troponin I High Sens 39, B-Natriuretic Peptide 220.4 H, Total Protein 7.6, Albumin 3.1 L, Globulin 4.5 H, Albumin/Globulin Ratio 0.7 L 03/23/23 15:30: Urine Color Yellow, Urine Clarity Clear, Urine pH 7.0, Ur Specific [place] 1.005, Urine Protein Negative, Urine Glucose (UA) Normal, Urine Ketones Negative, Urine Occult Blood Negative, Urine Nitrite Negative, Urine Bilirubin Negative, Urine Urobilinogen Normal, Ur Leukocyte Esterase Negative, Urine RBC 0-5 SEEN, Urine WBC 0 SEEN, Ur Squamous Epith Cells 0-5 SEEN, Urine Bacteria 0 SEEN, Urine Mucus 0 SEEN Radiology Impression Chest X-Ray 03/23/23 12:38 IMPRESSION: Cardiomegaly with decreased opacities at both bases and decrease in bilateral pleural effusions. No acute or emergent finding. Electronically Signed: Nick Duffy MD at 13:02 EST , Abdomen/Pelvis CT 03/23/23 15:02 IMPRESSION: Hepatomegaly. Status post cholecystectomy. Marked distention of the urinary bladder. Sigmoid diverticulosis. Bilateral pleural effusions with bibasilar atelectasis. Electronically Signed: Nico Goode MD at 15:28 EST , Assessment & Plan Assessment/Plan (1) Congestive heart failure: PLAN: Plan The patient is an 87 y/o F w/ PMHx: CKD stage III unclear subtype, Obesity, HFpEF, HTN, HLD, PAF, Valvular Heart Disease s/p TAVR, Hx GI bleed, Nonobstructive CAD, Chronic anemia/Fe deficiency, Hypothyroidism who presents to the [facility] ED on 03/23/2023 with history of generalized weakness progressively worsening over the last several weeks with reported cough, dyspnea worse with exertion and increased lower extremity swelling with sputum reported to be yellow with no fevers or chills nor any chest discomfort as well as sensation of abdominal bloating and orthopnea over the last several weeks prompting eventual ED evaluation. #1. Acute Decompensated HFpEF Exacerbation in addition to possibly #2: Patient administered IV lasix in the ED, will admit to PCU, maintain on cardiac telemetry, obtain cardiac enzyme series, obtain serial EKGs, continue IV lasix diuresis, monitor I/Os, maintain on intake restriction, continue medical therapy, obtain TSH and magnesium level. Most recent ECHO noted 12/28/2020 with normal LV size, LV systolic function lower limits of normal, EF 50%, D-shaped septum in diastole, PASP 56 mmHg, stable appearing bioprosthetic AV apparatus, moderate 2+ MVI thus will repeat. Place snug JIGNESH wraps. PT/OT/CM consultation for discharge planning. #2. Chronic bronchiectasis with potential recent acute infection, possibly viral syndrome versus bacterial component: To be cautious we will send sputum culture, obtain full respiratory viral panel, encourage head of bed and I-S, as needed albuterol with ATC budesonide therapy. #3. Valvular Heart Disease: 12/28/2020 with normal LV size, LV systolic function lower limits of normal, EF 50%, D-shaped septum in diastole, PASP 56 mmHg, stable appearing bioprosthetic AV apparatus, moderate 2+ MVI. #4. Chronic Kidney Disease Stage III, unclear subtype: Admission BUN/Cr 21/1.50, baseline renal function 0.8-1.4 previously however last lab value is from 05/06/2021 with creatinine 1.26 at that time, this certainly could have progressed, repeat BMP in AM. #5. Nonobstructive CAD: We will continue apixaban, metoprolol, lisinopril, not on statin therapy. #6. PAF: EKG upon presentation with rate controlled atrial fibrillation with nonspecific ST changes unchanged from previous we will continue patient home metoprolol and apixaban regimen. #7. Hypertension: Continue home regimen including spironolactone, metoprolol, lisinopril, Lasix with continued monitoring of renal function, PRN hydralazine. #8. Hyperlipidemia: Per current list not on statin therapy, FLP in AM. #9. Chronic macrocytic anemia/iron deficiency anemia: Admission hemoglobin to 11.2, MCV 106.9, baseline hemoglobin more recently primarily 13 however has vacillated in the 10-11 range previously, no recent lab values since 2020 however, repeat CBC in AM, continue iron supplementation. #10. Diabetes mellitus type II: Hold oral home regimen, ADA diet, accu checks w/ ISS. #11. Hypothyroidism: We will continue patient on levothyroxine regimen, TSH and free T4 requested #12. Obesity: Weight loss and lifestyle changes encouraged. #13. GERD with history of GI bleed: We will continue patient home pantoprazole regimen. #14. DVT prophylaxis: Continue patient home apixaban regimen. #15. CODE status: Patient to have a healthcare power of robotic maintenance technician or living will in place but her family would be her decision-makers if necessary. Discussed CODE status at length including difference between FULL code, DNR-CCA and DNR-CC status. Following discussions about the differences in these status, requested DNR-CCA, no intubation. Advanced Care Planning Face to Face Time: 16 minutes. Charges/Coding Visit Charges Inpatient E&M: 36225 Init Hosp L3 Procedures Hospitalists Procedures: 55057 Advncd Care Plan 30 Min
[2023-03-23] MEDS: Furosemide 40 MG/4 ML Vial IV (18:11)
--- NOTE | 2023-03-23 18:37 | ECHOCS_ITS ---
Reason For Study: CHF Procedure This was a 2D Doppler, Color Flow transthoracic echocardiogram. The study was technically difficult. Contrast injection was performed. Exam performed portable in patient room. Left Ventricle Normal left ventricle. The estimated ejection fraction is 50-55 %. Right Ventricle Normal right ventricle. Normal systolic function. Atria Normal left atrium. Normal right atrium. Mitral Valve There is mild mitral annular calcification. Mild (1+) eccentric mitral valve insufficiency. Tricuspid Valve Normal tricuspid valve. Moderate (2+) tricuspid valve insufficiency. Aortic Valve Normal aortic valve. Great Vessels Normal aortic root. Pericardium/Pleural No pericardial effusion. Medication Diluted definity 3ml given slow IV push to enhance endocardial definition. MMode/2D Measurements & Calculations LVIDd: 3.5 cm IVSd: 0.91 cm LVOT diam: 2.0 cm LVIDs: 2.7 cm LVPWd: 0.91 cm LVOT area: 3.2 cm2 FS: 22.0 % LAV(MOD-bp): 87.5 ml LA A4 area: 25.3 cm2 RA A4 area: 21.9 cm2 LAV(MOD-bp) Indexed: 49.2 ml/m2 LAV(MOD-sp2): 94.5 ml LAV(MOD-sp4): 81.4 ml TAPSE: 1.4 cm Doppler Measurements & Calculations MV E max jose: 225.4 cm/sec Lat Peak E' Jose: 8.5 cm/sec Med Peak E' Jose: 5.8 cm/sec E/E' lat: 26.4 E/E' med: 38.9 MV V2 max: 270.7 cm/sec MV P1/2t max jose: 272.2 cm/sec Ao V2 max: 173.3 cm/sec MV max P.3 mmHg MV P1/2t: 92.9 msec Ao max P.1 mmHg MV V2 mean: 157.9 cm/sec Ao V2 mean: 124.1 cm/sec MV mean P.8 mmHg MV dec slope: 857.7 cm/sec2 Ao mean P.9 mmHg MV V2 VTI: 61.0 cm MVA(P1/2t): 2.4 cm2 Ao V2 VTI: 32.8 cm AV (velocity ratio): 0.81 MVA(VTI): 1.4 cm2 NIK(I,D): 2.6 cm2 NIK(V,D): 2.6 cm2 LV V1 max: 141.2 cm/sec MR max jose: 559.0 cm/sec SV(LVOT): 83.9 ml LV V1 max P.0 mmHg MR max P.0 mmHg LV V1 mean P.5 mmHg MR mean jose: 444.4 cm/sec LV V1 mean: 99.4 cm/sec MR mean P.4 mmHg LV V1 VTI: 26.5 cm MR VTI: 166.7 cm PA V2 max: 89.0 cm/sec TR max jose: 369.5 cm/sec TR max P.6 mmHg ECHO/Echo Complete W/ Contrast Interpretation Summary The estimated ejection fraction is 50-55 %. Mild MR Moderate TR Contrast echo using Definity. No significant change from prior echo cardiac Ordering Physician: Devorah Montenegro Performed By: Kai Starr RCS
[2023-03-23 18:43] LABS: Procalcitonin 0.07 ng/mL (0.00-0.09)
[2023-03-23 19:50] LABS: Troponin-I HS 38 pg/mL (3.0-54.0)
[2023-03-23 20:41] LABS: Bedside Glucose 72 mg/dL (74-106)
[2023-03-23] MEDS: Menthol/Lanolin/Calamine/Znox 113 GM Tube 1 APPLIC TOPICAL (21:23)
[2023-03-23] MEDS: APIXABAN 5 MG TABLET PO (21:25)
[2023-03-23] MEDS: Metoprolol Tartrate 25 MG Tablet PO (21:25)
[2023-03-23] MEDS: Mirtazapine 30 MG Tablet PO (21:26)
[2023-03-23 22:00] LABS: Troponin-I HS 39 pg/mL (3.0-54.0)
[2023-03-23] MEDS: Budesonide Respules 0.5 MG/2 ML AMPUL.NEB. INHALATION (23:26)
[2023-03-24] VITALS (10 sets, daily range): BP systolic 110–124; BP diastolic 65–70; PULSE 82–104; RESP 16–24; TEMP 36.4–36.8; O2SAT 93–99; BMI 29.2
[2023-03-24] MEDS: guaiFENesin 10 ML UDC (200MG/10ML) 20 ML PO ×4 (00:52→22:29)
[2023-03-24 01:35] LABS: Troponin-I HS 40 pg/mL (3.0-54.0)
[2023-03-24 06:23] LABS: Absolute Neutrophil Count 4.6 X10^3/uL (2.0-7.7); Basophil# 0.02 X10^3/uL; Basophil% 0.3 % (0-1); Eosinophil# 0.09 X10^3/uL; Eosinophils% 1.4 % (0-5); Hematocrit 36.2 % (37-47); Hemoglobin 11.4 g/dL (12.0-15.0); Lymphocyte % 14.3 % (19-41); Mean Corp Hgb Conc 31.5 g/dL (32-36); Mean Corpuscular Hgb 35.8 pg (27.0-32.0); Mean Corpuscular Volume 113.8 fL (81-99); Mean Platelet Vol. 10.5 fl (6.2-12.0); Monocyte# 0.64 X10^3/uL; Monocyte% 10.2 % (0-10); NRBC Flagged by Analyzer 0 % (0-5); Neutrophil # 4.61 X10^3/uL (2.7-7.7); Neutrophil % 73.2 % (47-70); POSITIVE COUNT YES; Platelet Count 234 K/mm3 (150-450); RBC Distribution Width CV 12.8 % (11.6-14.6); RBC Distribution Width SD 53.5 fl (35.1-43.9); Red Blood Count 3.18 M/mm3 (4.2-5.4); White Blood Count 6.3 K/mm3 (4.4-11.0)
[2023-03-24 06:43] LABS: Differential Indicated SCAN CRITERIA MET
[2023-03-24] MEDS: Levothyroxine 150 MCG Tablet PO (06:49)
[2023-03-24] MEDS: Pantoprazole Sodium 40 MG Tablet PO (06:49)
[2023-03-24 06:54] LABS: Differential Comment SCANNED; Platelet Estimate ADEQUATE (ADEQ)
[2023-03-24 07:00] LABS: ALB/GLOB Ratio 0.6 RATIO (0.9-2.4); AST(SGOT) 25 U/L (15-37); Alanine Aminotransfer ALT/SGPT 20 U/L (13-56); Albumin, Serum 2.8 g/dL (3.2-5.0); Alkaline Phosphatase 83 U/L (45-117); Anion Gap 7 (5-15); BUN 20 mg/dL (7-18); Calcium,Total 8.8 mg/dL (8.5-10.1); Chloride 105 mmol/L (98-107); Cholesterol 83 mg/dL (200); Creatinine, Serum 1.25 mg/dL (0.55-1.02); EST Glomerular Filtration Rate 43 mL/min (>60); Est Glom Filt Rate - Afr Amer 52 mL/min (>60); Estimated Creatinine Clearance 25.73 ml/min; Globulin 4.7 g/dL (2.2-4.2); Glucose 80 mg/dL (74-106); High Density Lipoprotein 33 mg/dL; Potassium 3.3 mmol/L (3.5-5.1); Protein, Total 7.5 g/dL (6.4-8.2); Sodium Level 139 mmol/L (136-145); Thyroid Stim Hormone (TSH) 1.01 uIU/mL (0.358-3.74); Triglycerides 78 mg/dL; Very Low Density Lipoprotein 16 mg/dL (5-40)
[2023-03-24] MEDS: Budesonide Respules 0.5 MG/2 ML AMPUL.NEB. INHALATION ×2 (07:22→19:06)
[2023-03-24 08:07] LABS: Bedside Glucose 75 mg/dL (74-106)
[2023-03-24 08:11] LABS: Bedside Glucose 74 mg/dL (74-106)
--- NOTE | 2023-03-24 08:39 | PCM.PN.HOSP ---
Reason for Visit Reason for Visit: Diagnoses Heart failure, unspecified (03/23/23) Subjective Subjective Patient is an 87-year-old lady admitted with shortness of breath diagnosed with acute congestive heart failure admitted to monitored bed for further management Objective Data Objective Data Vital Signs: Vital Signs Temp Pulse Resp BP Pulse Ox O2 Del Method O2 Flow Rate 97.6 F L 82 20 H 117/67 96 Nasal Cannula 1 03/24/23 02:51 03/24/23 02:51 03/24/23 02:51 03/24/23 02:51 03/24/23 02:51 03/24/23 03:18 03/24/23 03:18 Oxygen Flow Rate (L/min) 1 Oxygen Delivery Method Nasal Cannula Weight: 74.8 kg Body Mass Index (BMI) 29.2 Intake & Output: Intake and Output for Last 24 Hours 03/22/23 03/23/23 03/24/23 23:59 23:59 23:59 Intake Total 30 / 30 40 / 40 Output Total 700 / 700 1150 / 1150 Balance -670 / -670 -1110 / -1110 Lab / Micro Data 03/24/23 05:40 03/24/23 05:40 Labs: Laboratory Results - last 24 hr 03/23/23 13:00: WBC 8.9, RBC 3.21 L, Hgb 11.2 L, Hct 34.3 L, MCV 106.9 H, MCH 34.9 H, MCHC 32.7, RDW Std Deviation 50.4 H, RDW Coeff of Cristi 12.8, Plt Count 292, MPV 9.5, Immature Gran % (Auto) 1.200 H, Neut % (Auto) 81.6 H, Lymph % (Auto) 8.4 L, [place] % (Auto) 7.9, Eos % (Auto) 0.6, Baso % (Auto) 0.3, Absolute Neuts (auto) 7.2, Absolute Lymphs (auto) 0.75 L, Nucleated RBC % 0, PT 24.7 H, INR 2.2, APTT 43.9 H, Sodium 137, Potassium 3.5, Chloride 103, Carbon Dioxide 30.0, Anion Gap 4 L, BUN 21 H, Creatinine 1.50 H, Estim Creat Clear Calc 21.45, Est GFR (MDRD) Af Amer 42 L, Est GFR (MDRD) Non-Af 35 L, BUN/Creatinine Ratio 14.0, Glucose 122 H, Calcium 8.7, Magnesium 2.0, Total Bilirubin 1.20 H, AST 18, ALT 21, Alkaline Phosphatase 87, Troponin I High Sens 39, B-Natriuretic Peptide 220.4 H, Total Protein 7.6, Albumin 3.1 L, Globulin 4.5 H, Albumin/Globulin Ratio 0.7 L, Procalcitonin 0.07 03/23/23 15:30: Urine Color Yellow, Urine Clarity Clear, Urine pH 7.0, Ur Specific [place] 1.005, Urine Protein Negative, Urine Glucose (UA) Normal, Urine Ketones Negative, Urine Occult Blood Negative, Urine Nitrite Negative, Urine Bilirubin Negative, Urine Urobilinogen Normal, Ur Leukocyte Esterase Negative, Urine RBC 0-5 SEEN, Urine WBC 0 SEEN, Ur Squamous Epith Cells 0-5 SEEN, Urine Bacteria 0 SEEN, Urine Mucus 0 SEEN 03/23/23 19:00: Troponin I High Sens 38 03/23/23 20:17: POC Glucose 72 L 03/23/23 21:09: Troponin I High Sens 39 03/24/23 01:06: Troponin I High Sens 40 03/24/23 05:40: WBC 6.3, RBC 3.18 L, Hgb 11.4 L, Hct 36.2 L, MCV 113.8 H D, MCH 35.8 H, MCHC 31.5 L, RDW Std Deviation 53.5 H, RDW Coeff of Cristi 12.8, Plt Count 234, MPV 10.5, Immature Gran % (Auto) 0.600, Neut % (Auto) 73.2 H, Lymph % (Auto) 14.3 L, [place] % (Auto) 10.2 H, Eos % (Auto) 1.4, Baso % (Auto) 0.3, Absolute Neuts (auto) 4.6, Absolute Lymphs (auto) 0.90, Nucleated RBC % 0, Differential Comment SCANNED, Platelet Estimate ADEQUATE, Sodium 139, Potassium 3.3 L, Chloride 105, Carbon Dioxide 27.0, Anion Gap 7, BUN 20 H, Creatinine 1.25 H, Estim Creat Clear Calc 25.73, Est GFR (MDRD) Af Amer 52 L, Est GFR (MDRD) Non-Af 43 L, BUN/Creatinine Ratio 16.0, Glucose 80, Calcium 8.8, Total Bilirubin 1.60 H, AST 25, ALT 20, Alkaline Phosphatase 83, Total Protein 7.5, Albumin 2.8 L, Globulin 4.7 H, Albumin/Globulin Ratio 0.6 L, Triglycerides 78, Cholesterol 83, LDL Cholesterol 34, VLDL Cholesterol 16, HDL Cholesterol 33 L, TSH 1.01 03/24/23 06:47: POC Glucose 75 03/24/23 07:51: POC Glucose 74 Micro: Microbiology 03/23/23 23:17 Mucosa - Nasopharyngeal Respiratory Panel (PCR) - Final Radiography Diagnostic Testing: Radiology Impression Chest X-Ray 03/23/23 12:38 IMPRESSION: Cardiomegaly with decreased opacities at both bases and decrease in bilateral pleural effusions. No acute or emergent finding. Electronically Signed: Nick Duffy MD at 13:02 EST , Abdomen/Pelvis CT 03/23/23 15:02 IMPRESSION: Hepatomegaly. Status post cholecystectomy. Marked distention of the urinary bladder. Sigmoid diverticulosis. Bilateral pleural effusions with bibasilar atelectasis. Electronically Signed: Nico Goode MD at 15:28 EST , Physical Exam Narrative GENERAL: cooperative HEENT: Atraumatic; normocephalic EYES; Anicteric, Normal Conjunctiva NECK; supple, normal thyroid, RESPIRATORY: Diminished to auscultation CARDIOVASCULAR: Irregular S1-S2 GI: soft, normoactive bowel sounds, : No Renal angle tenderness; EXTREMITIES: Trace bipedal edema, no clubbing, MUSCULOSKELETAL: no muscle wasting NEURO: Awake; no lateralizing signs. SKIN: No Rash PSYCH; Flat affect Assessment & Plan Assessment/Plan (1) Congestive heart failure: PLAN: Plan Patient is an 87-year-old lady admitted with shortness of breath diagnosed with acute congestive heart failure admitted to monitored bed for further management 1. Acute on chronic congestive heart failure with preserved ejection fraction ? Patient admitted to a monitored bed managed with strict input and output, low-sodium diet, daily weights, and diuretic therapy with furosemide 2. Bilateral pleural effusion ? Secondary to patient congestive heart failure do expect improvement with treatment of the underlying etiology 3. Chronic kidney disease stage III ? Kidney function at baseline 4. Paroxysmal A-fib ? Rate controlled on metoprolol on systemic anticoagulation with apixaban continue 5. Diabetes mellitus type II -patient's oral hypoglycemics held. Placed on long acting insulin, Accu-Cheks a.c. and at bedtime and covered with sliding scale insulin 6. GERD ? On PPI 7. Anemia - Secondary to chronic disorder monitoring H&H and transfuse if patient becomes symptomatic or hemoglobin falls below 7 8. Valvular heart disease ? Echo from 12/28/2020 demonstrated a stable appearing bioprosthetic AVR and moderate 2+ mitral valve insufficiency 9. Hypothyroidism - Patient is on levothyroxine home dose continued 10. DVT prophylaxis ? On apixaban Time spent in the patient's overall evaluation,decision-making process, review of diagnostic data, adjustment of management, discussion with other providers, nursing nursing and ancillary staff involved in patient's care documentation, 52 minutes Charges/Coding Visit Charges Inpatient E&M: 01740 [facility] Hosp L3
[2023-03-24] MEDS: APIXABAN 5 MG TABLET PO ×2 (10:01→22:29)
[2023-03-24] MEDS: Spironolactone 25 MG Tablet PO (10:01)
[2023-03-24] MEDS: 0.9% Saline Lock 10 ML Syringe IV (10:01)
[2023-03-24] MEDS: Metoprolol Tartrate 25 MG Tablet PO ×2 (10:03→22:28)
[2023-03-24] MEDS: Furosemide 40 MG/4 ML Vial IV ×2 (10:03→17:21)
[2023-03-24] MEDS: Lisinopril 2.5 MG Tablet PO (10:04)
[2023-03-24] MEDS: Senna/Docusate Sodium 1 Tablet PO (10:04)
[2023-03-24] MEDS: Menthol/Lanolin/Calamine/Znox 113 GM Tube 1 APPLIC TOPICAL ×4 (10:12→22:29)
--- NOTE | 2023-03-24 10:50 | CASEMGMT ---
RN GAURANG Face to Face with patient for initial transition planning/care coordination assessment. RN CM introduced self and role at [facility]. Patient lying in bed, alert and oriented, daughter at bedside. Patient willing to participate in assessment and is able to answer all questions appropriately. Care providers, pharmacy, and demographics verified. Patient wishes to discharge home, denies need for home health at this time, has family to support at home. Patient states she has no further needs or concerns at this time. CM to follow for discharge planning needs that may arise. PCP: Aleshia Specialists: Ted, lamp cleaner street light; Jose ski tow operator Preferred Pharmacy: [facility] Insurance: [facility] Prescription Benefit: none Living Will/HPOA: yes, son Marija Hinkle LNOK: daughters, son Living Arrangements: Patient lives with daughter in a 2 story home with bed and bath on first floor, no steps to enter. Daughter assists patient with ADLs at home. Transportation: driving service DME/HHC: Patient has raised toilet, grab bars, walker, wheelchair, pulse ox, glucometer, and garb bars at home. Patient has access to solar electricity and generator. Will monitor patient for home oxygen and prefers [employer]. Disposition Plan: Patient to discharge home with family support and follow-up plans in place. Will monitor for home oxygen [place] TAVERA, RN, CM
[2023-03-24 10:52] LABS: Bedside Glucose 133 mg/dL (74-106)
[2023-03-24 17:44] LABS: Bedside Glucose 163 mg/dL (74-106)
[2023-03-24] MEDS: Mirtazapine 30 MG Tablet PO ×2 (22:28→22:29)
[2023-03-25] VITALS (7 sets, daily range): BP systolic 96–113; BP diastolic 57–65; PULSE 89–107; RESP 16–20; TEMP 36.1–36.9; O2SAT 92–98; BMI 29.0
[2023-03-25 02:21] LABS: Bedside Glucose 141 mg/dL (74-106)
[2023-03-25] MEDS: Levothyroxine 150 MCG Tablet PO (06:45)
[2023-03-25] MEDS: Pantoprazole Sodium 40 MG Tablet PO (06:45)
[2023-03-25 06:58] LABS: Bedside Glucose 125 mg/dL (74-106)
[2023-03-25] MEDS: Budesonide Respules 0.5 MG/2 ML AMPUL.NEB. INHALATION (07:19)
[2023-03-25 08:19] LABS: Absolute Lymphocyte Count 1.12 X10^3/uL (0.83-4.51); Absolute Neutrophil Count 4.8 X10^3/uL (2.0-7.7); Basophil# 0.03 X10^3/uL; Basophil% 0.4 % (0-1); Eosinophil# 0.18 X10^3/uL; Eosinophils% 2.6 % (0-5); Hematocrit 33.6 % (37-47); Hemoglobin 10.9 g/dL (12.0-15.0); Lymphocyte # 1.12 X10^3/ul (0.83-4.51); Lymphocyte % 16.2 % (19-41); Mean Corp Hgb Conc 32.4 g/dL (32-36); Mean Corpuscular Hgb 34.6 pg (27.0-32.0); Mean Corpuscular Volume 106.7 fL (81-99); Mean Platelet Vol. 9.8 fl (6.2-12.0); Monocyte# 0.73 X10^3/uL; Monocyte% 10.5 % (0-10); NRBC Flagged by Analyzer 0 % (0-5); Neutrophil % 69.4 % (47-70); Platelet Count 289 K/mm3 (150-450); RBC Distribution Width CV 12.8 % (11.6-14.6); RBC Distribution Width SD 50.4 fl (35.1-43.9); Red Blood Count 3.15 M/mm3 (4.2-5.4); White Blood Count 6.9 K/mm3 (4.4-11.0)
[2023-03-25 08:40] LABS: Anion Gap 7 (5-15); BUN 29 mg/dL (7-18); BUN/Creat Ratio 21.5 RATIO (10-20); Calcium,Total 8.6 mg/dL (8.5-10.1); Chloride 101 mmol/L (98-107); Creatinine, Serum 1.35 mg/dL (0.55-1.02); EST Glomerular Filtration Rate 39 mL/min (>60); Est Glom Filt Rate - Afr Amer 48 mL/min (>60); Estimated Creatinine Clearance 23.83 ml/min; Glucose 115 mg/dL (74-106); Magnesium 1.9 mg/dL (1.6-2.6); Phosphorus 3.6 mg/dL (2.5-4.9); Potassium 3.2 mmol/L (3.5-5.1); Sodium Level 137 mmol/L (136-145)
--- NOTE | 2023-03-25 09:07 | DS.PCM_ITS ---
Providers Date of Admission: 03/23/23 Date of Discharge: 03/25/23 Primary Care Physician: JOSE Price Reason For Visit: CHF EXACERBATION Diagnosis Discharge Diagnosis (1) Congestive heart failure: Status: Acute Code(s): I50.9 - Heart failure, unspecified Plan Patient is an 87-year-old lady admitted with shortness of breath diagnosed with acute congestive heart failure admitted to monitored bed for further management 1. Acute on chronic congestive heart failure with preserved ejection fraction ? Patient admitted to a monitored bed managed with strict input and output, low- sodium diet, daily weights, and diuretic therapy with furosemide ? Echo demonstrated EF of 50 to 55%. Patient was discharged on furosemide 2. Bilateral pleural effusion ? Secondary to patient congestive heart failure do expect improvement with treatment of the underlying etiology 3. Chronic kidney disease stage III ? Kidney function at baseline 4. Paroxysmal A-fib ? Rate controlled on metoprolol on systemic anticoagulation with apixaban continue 5. Diabetes mellitus type II -patient's oral hypoglycemics held. Placed on long acting insulin, Accu-Cheks a.c. and at bedtime and covered with sliding scale insulin 6. GERD ? On PPI 7. Anemia - Secondary to chronic disorder monitoring H&H and transfuse if patient becomes symptomatic or hemoglobin falls below 7 8. Valvular heart disease ? Echo from 12/28/2020 demonstrated a stable appearing bioprosthetic AVR and moderate 2+ mitral valve insufficiency 9. Hypothyroidism - Patient is on levothyroxine home dose continued 10. DVT prophylaxis ? On apixaban Time spent in the patient's overall evaluation,decision-making process, review of diagnostic data, adjustment of management, discussion with other providers, nursing nursing and ancillary staff involved in patient's care documentation, 52 minutes Medications at Discharge Home Medications glipizide 5 mg tablet 5 mg PO DAILY@0730 diabetes 05/14/17 sennosides 8.6 mg-docusate sodium 50 mg tablet 1 ea PO DAILY stool softner 05/14/17 pantoprazole 40 mg tablet,delayed release 40 mg PO DAILY@0730 GI 07/26/17 levothyroxine 150 mcg capsule 150 mcg PO DAILY 06/09/20 meclizine 25 mg tablet 25 mg PO DAILY PRN Dizziness 06/09/20 ferrous gluconate 240 mg (27 mg iron) tablet 240 mg PO QODAY #0 tabs 01/16/21 apixaban 5 mg tablet 5 mg PO BID #180 tabs 03/24/22 spironolactone 25 mg tablet 25 mg PO DAILY #90 tabs 07/01/22 lisinopril 2.5 mg tablet 2.5 mg PO DAILY #90 tabs 09/14/22 metoprolol tartrate 25 mg tablet 25 mg PO BID #180 tabs 09/14/22 mirtazapine 15 mg tablet 30 mg PO QHS sleep 03/23/23 furosemide 40 mg tablet (Lasix) 40 mg PO BIDCM #120 tabs 03/25/23 Hospital Course Procedures 2-D Echocardiogram Physical Exam Narrative GENERAL: cooperative HEENT: Atraumatic; normocephalic EYES; Anicteric, Normal Conjunctiva NECK; supple, normal thyroid, RESPIRATORY: Diminished to auscultation CARDIOVASCULAR: Irregular S1-S2 GI: soft, normoactive bowel sounds, : No Renal angle tenderness; EXTREMITIES: Trace bipedal edema, no clubbing, MUSCULOSKELETAL: no muscle wasting NEURO: Awake; no lateralizing signs. SKIN: No Rash PSYCH; Flat affect Weight / BMI Weight Weight: 74.2 kg Body Mass Index (BMI) 29.0 ABG / Lab / Microbiology Data 03/25/23 07:07 03/25/23 07:07 Laboratory: Laboratory Results - last 24 hr 03/24/23 10:33: POC Glucose 133 H 03/24/23 16:13: POC Glucose 163 H 03/24/23 22:24: POC Glucose 141 H 03/25/23 06:40: POC Glucose 125 H 03/25/23 07:07: WBC 6.9, RBC 3.15 L, Hgb 10.9 L, Hct 33.6 L, MCV 106.7 H D, MCH 34.6 H, MCHC 32.4, RDW Std Deviation 50.4 H, RDW Coeff of Cristi 12.8, Plt Count 289, MPV 9.8, Immature Gran % (Auto) 0.900, Neut % (Auto) 69.4, Lymph % (Auto) 16.2 L, [place] % (Auto) 10.5 H, Eos % (Auto) 2.6, Baso % (Auto) 0.4, Absolute Neuts (auto) 4.8, Absolute Lymphs (auto) 1.12, Nucleated RBC % 0, Sodium 137, Potassium 3.2 L, Chloride 101, Carbon Dioxide 29.0, Anion Gap 7, BUN 29 H, Creatinine 1.35 H, Estim Creat Clear Calc 23.83, Est GFR (MDRD) Af Amer 48 L, Est GFR (MDRD) Non-Af 39 L, BUN/Creatinine Ratio 21.5 H, Glucose 115 H, Calcium 8.6, Phosphorus 3.6, Magnesium 1.9 Microbiology: Microbiology 03/23/23 23:16 Sputum, Expectorated/Coughed Gram Stain - Final 03/23/23 23:17 Mucosa - Nasopharyngeal Respiratory Panel (PCR) - Final Radiography Diagnostic Testing: Radiology Impression Echocardiogram 03/23/23 18:37 Interpretation Summary The estimated ejection fraction is 50-55 %. Mild MR Moderate TR Contrast echo using Definity. No significant change from prior echo cardiac Ordering Physician: Devorah Montenegro Performed By: Kai Starr RCS D/C Instructions Discharge Diet: No restrictions Discharge Activity: Return to Normal Activity Call your doctor if you observe: Fever of 101 or Higher, Shortness of breath, Fainting spells and Chest pain Meaningful Use Info Meaningful Use Diagnoses (Choose all that apply): CHF CHF JIGNESH/ARB ordered at discharge?: Yes Documented LVEF (%): 50 Discharge Plan Admission Admit Date/Time: 03/23/23 17:37 Attending Provider: Ji Muñoz Primary Care Provider: Masha Monk Consulting Providers: Devorah Montenegro Discharge Orders/Prescriptions Prescriptions: Continued meclizine 25 mg tablet 25 mg PO DAILY PRN (Reason: Dizziness) levothyroxine 150 mcg capsule 150 mcg PO DAILY sennosides-docusate sodium 1 EACH tablet 1 ea PO DAILY glipizide 5 MG tablet 5 mg PO DAILY@0730 pantoprazole 40 MG tablet,delayed release (DR/EC) 40 mg PO DAILY@0730 ferrous gluconate 240 mg (27 mg iron) tablet 240 mg PO QODAY Qty: 0 0RF mirtazapine 15 mg tablet 30 mg PO QHS Patient Comments: TAKE 1 TABLET BY MOUTH AT BEDTIME apixaban 5 mg tablet 5 mg PO BID Qty: 180 4RF spironolactone 25 mg tablet 25 mg PO DAILY Qty: 90 3RF lisinopril 2.5 mg tablet 2.5 mg PO DAILY Qty: 90 3RF metoprolol tartrate 25 mg tablet 25 mg PO BID Qty: 180 3RF Changed furosemide [Lasix] 40 mg tablet 40 mg PO BIDCM Qty: 120 0RF Referrals / Follow Up: Masha Mnok, DIRECTOR OF MEDICAL STAFF SERVICES-C [Primary Care Provider] - Disposition Disposition (needs filled in before D/C Order can be placed): Home, Self Care Charges/Coding Visit Charges Inpatient E&M: 47844 Disch Hosp >30min
[2023-03-25] MEDS: Potassium Chloride Oral Tablet 20 MEQ 60 MEQ PO (09:27)
[2023-03-25] MEDS: 0.9% Saline Lock 10 ML Syringe IV (09:27)
[2023-03-25] MEDS: Furosemide 40 MG/4 ML Vial IV (09:27)
[2023-03-25] MEDS: Lisinopril 2.5 MG Tablet PO (09:28)
[2023-03-25] MEDS: Senna/Docusate Sodium 1 Tablet PO (09:28)
[2023-03-25] MEDS: Ferrous Gluconate 324 MG Tablet PO (09:28)
[2023-03-25] MEDS: APIXABAN 5 MG TABLET PO (09:28)
[2023-03-25] MEDS: Metoprolol Tartrate 25 MG Tablet PO (09:29)
[2023-03-25] MEDS: Menthol/Lanolin/Calamine/Znox 113 GM Tube 1 APPLIC TOPICAL (09:30)
[2023-03-25] MEDS: Spironolactone 25 MG Tablet PO (09:30)
== END 2023-03-25 11:54 | disposition home or self-care (01) | DRG 291 ==
LOC: ED 18:05 → PCU 18:17
PROVIDERS: Admitting Provider Family Medicine; Emergency Provider Emergency Medicine; PCP Nurse Practitioner Family; Visit Provider Internal Medicine
DX: I13.0 Hypertensive heart and chronic kidney disease with heart failure and stage 1 through stage 4 chronic kidney disease, or unspecified chronic kidney disease (principal); I50.33 Acute on chronic diastolic (congestive) heart failure; E11.22 Type 2 diabetes mellitus with diabetic chronic kidney disease; D50.9 Iron deficiency anemia, unspecified; E03.9 Hypothyroidism, unspecified; E78.5 Hyperlipidemia, unspecified; Z79.01 Long term (current) use of anticoagulants; J47.9 Bronchiectasis, uncomplicated; N18.30 Chronic kidney disease, stage 3 unspecified; I48.0 Paroxysmal atrial fibrillation; I34.0 Nonrheumatic mitral (valve) insufficiency; K21.9 Gastro-esophageal reflux disease without esophagitis; I25.10 Atherosclerotic heart disease of native coronary artery without angina pectoris; Z79.84 Long term (current) use of oral hypoglycemic drugs; R53.1 Weakness; Z79.899 Other long term (current) drug therapy
CPT/HCPCS: 36415; 71046; 74176; 80048; 80053; 80061; 81001; 82962; 83735; 83880; 84100; 84145; 84443; 84484; 85025; 85610; 85730; 87070; 87077; 87205; 87633; 93005; 93306; 94640; 94668; 97162; 97802; 99285; Q9957; A4216; C8929; J1940

== ENCOUNTER → 2023-10-25 | Outpatient (CLI) | payer MEDICARE, SELFPAY ==
[2023-10-25 15:38] LABS: Hematocrit 34.9 % (37-47); Hemoglobin 11.8 g/dL (12.0-15.0); Mean Corp Hgb Conc 33.8 g/dL (32-36); Mean Corpuscular Hgb 35.5 pg (27.0-32.0); Mean Corpuscular Volume 105.1 fL (81-99); Mean Platelet Vol. 10.5 fl (6.2-12.0); Platelet Count 208 K/mm3 (150-450); RBC Distribution Width CV 13.9 % (11.6-14.6); RBC Distribution Width SD 53.5 fl (35.1-43.9); Red Blood Count 3.32 M/mm3 (4.2-5.4); White Blood Count 6.2 K/mm3 (4.4-11.0)
== END | disposition home or self-care (01) ==
LOC: MTLAB 11:32
PROVIDERS: PCP Nurse Practitioner Family; Referring Provider Internal Medicine Pulmonary Disease; Visit Provider Internal Medicine Pulmonary Disease
DX: R06.02 Shortness of breath (principal); R05.9 Cough, unspecified
CPT/HCPCS: 36415; 85027

== ENCOUNTER → 2023-12-08 | Outpatient (CLI) | payer MEDICARE, SELFPAY ==
--- NOTE | 2023-12-08 11:53 | RAD_ITS ---
INDICATION: SOB EXAMINATION/TECHNIQUE: X-RAY - XR Chest 2 Views COMPARISON: Prior study dated: 03/23/2023 FINDINGS: LINES/DEVICES: None. LUNGS: The lungs are somewhat hyperinflated. Mild stranding/scarring in the right lung base. No focal infiltrate is seen. No evidence of pleural effusions. MEDIASTINUM AND CARDIOVASCULAR STRUCTURES: Normal cardiac silhouette. Aortic stent is again seen. BONES AND SOFT TISSUES: Unchanged. RAD/Chest PA and Lateral IMPRESSION: No radiographic evidence of acute cardiopulmonary disease. Electronically Signed: [place] Kirby MD at 13:35 EDT ,
== END | disposition home or self-care (01) ==
LOC: MTRAD 11:47
PROVIDERS: PCP Nurse Practitioner Family; Referring Provider Internal Medicine Pulmonary Disease; Visit Provider Internal Medicine Pulmonary Disease
DX: R06.02 Shortness of breath (principal)
CPT/HCPCS: 71046

== ENCOUNTER → 2024-01-11 | Outpatient (CLI) | payer MEDICARE, SELFPAY | END | disposition home or self-care (01) | LOC: LABSPEC 16:13 | PROVIDERS: PCP Nurse Practitioner Family; Referring Provider Internal Medicine Pulmonary Disease; Visit Provider Internal Medicine Pulmonary Disease | DX: R05.9 Cough, unspecified (principal) | CPT/HCPCS: 87070; 87077; 87186; 87205 ==

== ENCOUNTER → 2024-02-01 | Outpatient (CLI) | payer MEDICARE, SELFPAY ==
--- NOTE | 2024-02-01 11:26 | RAD_ITS ---
STUDY: X-RAY CHEST REASON FOR EXAM: Female, 88 years old. ASTHMA/SOB TECHNIQUE: PA and lateral COMPARISON: December 08, 2023. FINDINGS: Lungs appear mildly hyperinflated. Tiny calcified granuloma in right lower lobe. There is a tiny left pleural effusion or pleural thickening. There is calcific plaquing of the hemidiaphragmatic surfaces Normal size heart. Aortic valve graft is noted Normal mediastinum and nathaniel. Normal visualized pulmonary arteries. Mildly calcified aortic arch and descending thoracic aorta. Normal visualized thoracic spine. Normal visualized ribs, clavicles, and shoulders. There is no demonstrated abnormality of the visualized soft tissue structures of the upper abdomen. RAD/Chest PA and Lateral IMPRESSION: Mild hyperinflation. Possible tiny left pleural effusion versus pleural thickening Old granulomatous disease on the right Electronically Signed: Kurt Murphy MD at 19:11 EDT ,
== END | disposition home or self-care (01) ==
LOC: MTRAD 11:23
PROVIDERS: PCP Nurse Practitioner Family; Referring Provider Internal Medicine Pulmonary Disease; Visit Provider Internal Medicine Pulmonary Disease
DX: J45.20 Mild intermittent asthma, uncomplicated (principal); J47.9 Bronchiectasis, uncomplicated
CPT/HCPCS: 71046

== ENCOUNTER → 2024-05-07 | Outpatient (CLI) | payer MEDICARE, SELFPAY | END | disposition home or self-care (01) | LOC: LABSPEC 15:56 | PROVIDERS: PCP Nurse Practitioner Family; Referring Provider Physician Assistant; Visit Provider Physician Assistant | DX: M25.541 Pain in joints of right hand (principal) | CPT/HCPCS: 87015; 87070; 87075; 87077; 87101; 87116; 87186; 87205; 87206 ==

== ENCOUNTER → 2024-05-21 | Outpatient (CLI) | payer MEDICARE, SELFPAY ==
[2024-05-21 18:45] LABS: Creatinine, Serum 1.33 mg/dL (0.55-1.02); EST Glomerular Filtration Rate 40 mL/min (>60); Est Glom Filt Rate - Afr Amer 48 mL/min (>60)
== END | disposition home or self-care (01) ==
LOC: MTLAB 15:18
PROVIDERS: PCP Nurse Practitioner Family; Referring Provider Physician Assistant Surgical; Visit Provider Physician Assistant Surgical
DX: N28.9 Disorder of kidney and ureter, unspecified (principal)
CPT/HCPCS: 36415; 82565

== ENCOUNTER → 2024-05-27 | Outpatient (CLI) | payer MEDICARE, SELFPAY ==
[2024-05-27 15:46] LABS: Absolute Neutrophil Count 3.1 X10^3/uL (2.0-7.7); Basophil# 0.02 X10^3/uL; Basophil% 0.4 % (0-1); Eosinophil# 0.07 X10^3/uL; Eosinophils% 1.4 % (0-5); Hematocrit 39.8 % (37-47); Hemoglobin 13.4 g/dL (12.0-15.0); Lymphocyte % 24.3 % (19-41); Mean Corp Hgb Conc 33.7 g/dL (32-36); Mean Corpuscular Hgb 33.8 pg (27.0-32.0); Mean Corpuscular Volume 100.5 fL (81-99); Mean Platelet Vol. 10.2 fl (6.2-12.0); Monocyte# 0.48 X10^3/uL; Monocyte% 9.7 % (0-10); NRBC Flagged by Analyzer 0 % (0-5); Neutrophil # 3.13 X10^3/uL (2.7-7.7); Neutrophil % 63.6 % (47-70); Platelet Count 256 K/mm3 (150-450); RBC Distribution Width CV 13.4 % (11.6-14.6); RBC Distribution Width SD 49.4 fl (35.1-43.9); Red Blood Count 3.96 M/mm3 (4.2-5.4); White Blood Count 4.9 K/mm3 (4.4-11.0)
[2024-05-27 16:13] LABS: Anion Gap 5 (5-15); BUN 25 mg/dL (7-18); BUN/Creat Ratio 22.1 RATIO (10-20); Calcium,Total 9.4 mg/dL (8.5-10.1); Chloride 104 mmol/L (98-107); Creatinine, Serum 1.13 mg/dL (0.55-1.02); EST Glomerular Filtration Rate 48 mL/min (>60); Est Glom Filt Rate - Afr Amer 58 mL/min (>60); Glucose 119 mg/dL (74-106); Potassium 3.2 mmol/L (3.5-5.1); Sodium Level 138 mmol/L (136-145)
[2024-05-27 16:14] LABS: Hemoglobin A1c 5.7 % (3.8-5.6)
== END | disposition home or self-care (01) ==
LOC: LAB 14:47
PROVIDERS: PCP Nurse Practitioner Family; Referring Provider Student in an Organized Health Care Education/Training Program; Visit Provider Student in an Organized Health Care Education/Training Program
DX: Z01.818 Encounter for other preprocedural examination (principal)
CPT/HCPCS: 36415; 80048; 83036; 85025

== ENCOUNTER 2024-05-30 12:49 | Day surgery (SDC) | payer MEDICARE, SELFPAY ==
--- NOTE | 2024-05-29 15:19 | PAT.ANESEVAL ---
Pre-Assessment Diagnosis/Proposed Procedure Planned Operative Procedure(s): RIGHT THUMB EXTENSIVE I&D Anesthesia History Anesthesia History - instructional coach: Anesthesia History - instructional coach Hx Hospitalization Yes 05/29/24 14:56 Any Problems With Anesthesia No 05/29/24 14:56 Cholinesterase deficiency No 05/29/24 14:56 You/Your Family Experience No 05/29/24 14:56 fever (hyperthermia) with Relationship Recent Exposure to Contagious Disease Does patient have nerve No 05/29/24 14:56 stimulator Patient instructed to have device shut off --Does patient have Pacemaker or ICD? When Was Last Pacemaker Check QUESTION #4 FULL TEXT: You/Your Family Experience fever (hyperthermia) with Anesthesia Last Oral Intake Last Oral intake: Last Oral Intake NPO since Meds taken in AM with sips of water? Meds patient instructed to take am of surgery PONV PONV - instructional coach: PONV - instructional coach Female Yes 05/29/24 14:56 HX of Motion Sickness No 05/29/24 14:56 HX of N/V After Surgery No 05/29/24 14:56 Non-Smoker Yes 05/29/24 14:56 Duration of Surgery greater Yes 05/29/24 14:56 than 60 minutes Number of Risk Factors 3 05/29/24 14:56 PONV Score Moderate Risk 05/29/24 14:56 Height & Weight Height & Weight: Anesthesia: Height & Weight Height 5 ft 3 in 05/28/24 10:15 Respiratory Assessment Respiratory Assessment - instructional coach: Respiratory Tract Infection Hx - instructional coach Hx Respiratory Tract Infection No 05/29/24 14:56 STOP Sleep Apnea STOP Sleep Apnea - instructional coach: STOP Sleep Apnea - instructional coach Hx Hypertension Yes: CONTROLLED WITH MED 05/29/24 14:56 Hx Sleep Apnea No 05/29/24 14:56 CPAP BIPAP Do you snore loudly (louder No 05/29/24 14:56 than talking or can be heard Do you often feel tired/ No 05/29/24 14:56 fatigued/ sleepy during daytime? Has anyone observed you stop No 05/29/24 14:56 breathing during sleep? STOP Results Negative 05/29/24 14:56 QUESTION #5 FULL TEXT : Do you snore loudly (louder than talking or can be heard through closed doors)? 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 Specify any problems Hx of Preganancy in last 3 N/A 05/29/24 14:56 Months Nurse Filling Out Transfusion NBUCHER 05/29/24 14:56 & Questions: Date: 05/29/24 05/29/24 14:56 Time: 14:58 05/29/24 14:56 Patient unable to answer at this time (ie. confused, unrespo /Reproduction History /Reproductive History - instructional coach: /Reproductive Hx- instructional coach Hx Now No 05/29/24 14:56 Gestational Age (in weeks): EDC: Hx Hx Para Hx Section SAB No 05/29/24 14:56 PFSH Medical History Wears hearing aid Loss of hearing Wears partial dentures Thyroid disease Gout GERD (gastroesophageal reflux disease) History of echocardiogram Cardiology follow-up encounter (HFpEF) heart failure with preserved ejection fraction Anxiety Hepatitis Non-smoker Hypertension History of transcatheter aortic valve replacement (TAVR) (04/10/17) Nonrheumatic mitral valve stenosis with insufficiency Longstanding persistent atrial fibrillation Nonobstructive atherosclerosis of coronary artery GI bleed Obesity Secondary pulmonary arterial hypertension Bronchiectasis Nonrheumatic aortic (valve) stenosis Iron deficiency anemia Diet-controlled type 2 diabetes mellitus Hypothyroidism Benign essential hypertension Home Medications ?Medication ?Instructions ?Recorded ?Last Taken ?Type glipizide 5 mg tablet 5 mg PO DAILY@0730 diabetes 05/14/17 Unknown History sennosides 8.6 mg-docusate sodium 1 ea PO DAILY stool softner 05/14/17 Unknown History 50 mg tablet meclizine 25 mg tablet 25 mg PO DAILY PRN Dizziness 06/09/20 Unknown History metoprolol tartrate 25 mg tablet 25 mg PO BID #180 tabs 09/14/22 Unknown Rx furosemide 40 mg tablet (Lasix) 40 mg PO BIDCM #180 tabs 10/26/23 Unknown Rx allopurinol 100 mg tablet 100 mg PO DAILY 05/28/24 Unknown History ferrous gluconate 240 mg (27 mg 240 mg PO QDAY 05/28/24 Unknown History iron) tablet levothyroxine 175 mcg tablet 175 mcg PO DAILY 05/28/24 Unknown History mirtazapine 30 mg tablet 30 mg PO QHS 05/28/24 Unknown History pantoprazole 40 mg tablet,delayed 40 mg PO DAILY 05/28/24 Unknown History release cyanocobalamin (vitamin B-12) 1,000 mcg IM QMONTH 05/29/24 Unknown History 1,000 mcg/mL injection solution Allergy/AdvReac Type Severity Reaction Status Date / Time No Known Allergies Allergy Verified 05/29/24 14:54 Family History Son Myocardial infarction, Onset Age: 56 Son CVA (cerebral vascular accident) Mother Cancer Father Lung disease Surgical History History of hysterectomy Hx of appendectomy History of cardioversion (07/2017) History of left heart catheterization (LHC) (02/06/17) Social History household members: family Smoking Status: Never smoker alcohol intake: never substance use type: does not use caffeine: Yes Type: coffee what type of physical activity do you participate in: none and other details: stretching.rom frequency: 1-2 times per week duration: 15-30 minutes/day seatbelt use: never do you feel safe at home: Yes Prior Cardiac Testing/Procedures Prior Cardiac Testing/Procedures: Echocardiogram Audit: Pertinent Findings Pertinent Findings Echo (EF%) pertinent findings: 50-55%; Moderate TR; AV s/p TAVR reported nl. Recommendation Anesthesia Recommendation Anesthesia recommendation: OPTIMIZED for anesthesia (Patient has followed with cardiology; Presenting got I&D; Has 4 METS; Will Need EKG on arrival ) Follow up Details Additional Information Recommendation: Yes Additional Information Rec Details: EKG on arrival
[2024-05-30] VITALS (9 sets, daily range): BP systolic 130–144; BP diastolic 52–78; PULSE 76–83; RESP 16–18; TEMP 36.1–36.9; O2SAT 96–100; BMI 27.3
--- NOTE | 2024-05-30 13:01 | EKG12_ITS ---
Test Reason : PRE OP Blood Pressure : */* mmHG Vent. Rate : 81 BPM Atrial Rate : * BPM P-R Int : * ms QRS Dur : 92 ms QT Int : 408 ms P-R-T Axes : * -23 89 degrees QTcB Int : 473 ms Atrial fibrillation Low voltage QRS Nonspecific T wave abnormality Prolonged QT Abnormal ECG When compared with ECG of 23-Mar-2023 15:44, Questionable change in QRS axis Confirmed by BRITTNI TRINIDAD, MAO ([id number]), continuity editor MONCHO TORRES ([id number]) on 06/06/2024 6:42:49 AM Referred By: Thai Bourne Confirmed By: MAO ELKINS MD
[2024-05-30 13:37] LABS: Bedside Glucose 80 mg/dL (74-106)
[2024-05-30] MEDS: 0.9% Normal Saline (1000mL) 1,000 ML 15 ML IV (13:42)
--- NOTE | 2024-05-30 14:11 | PCM.PRE.AN2 ---
ASA Classification* ASA Classification ASA Classification: 3 Assessment & Plan Anesthesia* Anesthesia Assessment Anesthesia Assessment: Discussed sedation and/or anesthesia options, risks, benefits, and alternatives with patient/parents/legal guardian/POA. Questions invited. The patient/parents/legal guardian/POA seems to understand and agrees to proceed with anesthesia plan. Reviewed the physical assessment, medical history, allergy history and patient home medications list prior to surgery/procedure/anesthetic and documented any changes. Performed airway and anesthesia risk assessments. Anesthesia Type Anesthesia Type: MAC History Source History Obtained from:: Patient and Chart Anesthesia Focused Assessment* Temperature: 98.3 F Pulse Rate: 76 Blood Pressure: 138/72 Respiratory Rate: 18 Pulse Ox: 96 Oxygen Delivery Method: Room Air Airway Assessment Mouth opens: >3 cm Mallampati Score: IV Teeth Condition: Dentures (Upper full dentures are out) and Missing (Patient edentulous on the bottom) Neck Range of motion (ROM): Limited ROM (Somewhat decreased extension) Focused Labs Anesthesia Preop lab: CBC WBC 4.9 K/mm3 (4.4-11.0) 05/27/24 15:07 RBC 3.96 M/mm3 (4.2-5.4) L 05/27/24 15:07 Hgb 13.4 g/dL (12.0-15.0) 05/27/24 15:07 Hct 39.8 % (37-47) 05/27/24 15:07 Plt Count 256 K/mm3 (150-450) 05/27/24 15:07 CHEMISTRY Potassium 3.2 mmol/L (3.5-5.1) L 05/27/24 15:07 Sodium 138 mmol/L (136-145) 05/27/24 15:07 Magnesium 1.9 mg/dL (1.6-2.6) 03/25/23 07:07 Phosphorus 3.6 mg/dL (2.5-4.9) 03/25/23 07:07 BUN 25 mg/dL (7-18) H 05/27/24 15:07 Creatinine 1.13 mg/dL (0.55-1.02) H 05/27/24 15:07 Glucose 119 mg/dL (74-106) H 05/27/24 15:07 POC Glucose 80 mg/dL (74-106) 05/30/24 13:18 TSH 1.01 uIU/mL (0.358-3.74) 03/24/23 05:40 COAG PT 24.7 SECONDS (11.7-14.9) H 03/23/23 13:00 Pre-Assessment Diagnosis/Proposed Procedure Planned Operative Procedure(s): RIGHT THUMB EXTENSIVE I&D Anesthesia History Anesthesia History - signal supervisor: Anesthesia History - signal supervisor Hx Hospitalization Yes 05/29/24 14:56 Any Problems With Anesthesia No 05/29/24 14:56 Cholinesterase deficiency No 05/29/24 14:56 You/Your Family Experience No 05/29/24 14:56 fever (hyperthermia) with Relationship Recent Exposure to Contagious No 05/30/24 13:27 Disease Does patient have nerve No 05/29/24 14:56 stimulator Patient instructed to have device shut off --Does patient have Pacemaker No 05/30/24 13:27 or ICD? When Was Last Pacemaker Check QUESTION #4 FULL TEXT: You/Your Family Experience fever (hyperthermia) with Anesthesia Last Oral Intake Last Oral intake: Last Oral Intake NPO since 08:00 05/30/24 13:27 Meds taken in AM with sips of Yes 05/30/24 13:27 water? Meds patient instructed to take am of surgery Any additional information?: Yes NPO since: 08:00 (Patient took meds with sips of water at 8 AM) Meds taken in AM with sips of water?: Yes PONV PONV - signal supervisor: PONV - signal supervisor Female Yes 05/29/24 14:56 HX of Motion Sickness No 05/29/24 14:56 HX of N/V After Surgery No 05/29/24 14:56 Non-Smoker Yes 05/29/24 14:56 Duration of Surgery greater Yes 05/29/24 14:56 than 60 minutes Number of Risk Factors 3 05/29/24 14:56 PONV Score Moderate Risk 05/29/24 14:56 Height & Weight Height & Weight: Anesthesia: Height & Weight Height 5 ft 3 in 05/30/24 13:27 Weight: 70 kg 05/30/24 13:27 Body Mass Index (BMI) 27.3 05/30/24 13:27 Respiratory Assessment Respiratory Assessment - signal supervisor: Respiratory Tract Infection Hx - signal supervisor Hx Respiratory Tract Infection No 05/29/24 14:56 STOP Sleep Apnea STOP Sleep Apnea - signal supervisor: STOP Sleep Apnea - signal supervisor Hx Hypertension Yes: CONTROLLED WITH MED 05/29/24 14:56 Hx Sleep Apnea No 05/29/24 14:56 CPAP BIPAP Do you snore loudly (louder No 05/29/24 14:56 than talking or can be heard Do you often feel tired/ No 05/29/24 14:56 fatigued/ sleepy during daytime? Has anyone observed you stop No 05/29/24 14:56 breathing during sleep? STOP Results Negative 05/29/24 14:56 QUESTION #5 FULL TEXT : Do you snore loudly (louder than talking or can be heard through closed doors)? Tobacco Use History Tobacco Use History - signal supervisor: Tobacco Use History - signal supervisor Tobacco Use Non-smoker 12/08/20 10:34 Smoking Status Never smoker 05/29/24 14:56 Hx Tobacco Use No 05/29/24 14:56 Years Smoking Packs Smoked per Day Smoking Cessation Date was within the last 15 years Hx Smoking Cessation Date Hx Smoking Cessation No 05/29/24 14:56 Counseling Hematologic Medial History Hematologic Hx - signal supervisor: Hematologic Medical Hx - clinical documentation developer Hx of Blood Transfusion Yes 05/29/24 14:56 Hx of Transfusion in last 3 No 05/29/24 14:56 Months Date of Last Transfusion (if within last 3 months) Ever experience any problems No 05/29/24 14:56 with transfusion(s)? Specify any problems Hx of Preganancy in last 3 N/A 05/29/24 14:56 Months Nurse Filling Out Transfusion NBUCHER 05/29/24 14:56 & Questions: Date: 05/29/24 05/29/24 14:56 Time: 14:58 05/29/24 14:56 Patient unable to answer at this time (ie. confused, unrespo /Reproduction History /Reproductive History - signal supervisor: /Reproductive Hx- signal supervisor Hx Now No 05/29/24 14:56 Gestational Age (in weeks): EDC: Hx Hx Para Hx Section SAB No 05/29/24 14:56 Active Medications Active Medications: Current Medications Generic Name Dose Route Start Last Admin Trade Name Freq PRN Reason Stop Dose Admin Sodium Chloride 1,000 mls @ 15 mls/hr 05/30/24 13:00 05/30/24 13:42 IV 06/05/24 02:19 15 mls/hr .Q48H TRACY Administration Protocol [facility] Medical History Wears hearing aid Loss of hearing Wears partial dentures Thyroid disease Gout GERD (gastroesophageal reflux disease) History of echocardiogram Cardiology follow-up encounter (HFpEF) heart failure with preserved ejection fraction Anxiety Hepatitis Non-smoker Hypertension History of transcatheter aortic valve replacement (TAVR) (04/10/17) Nonrheumatic mitral valve stenosis with insufficiency Longstanding persistent atrial fibrillation Nonobstructive atherosclerosis of coronary artery GI bleed Obesity Secondary pulmonary arterial hypertension Bronchiectasis Nonrheumatic aortic (valve) stenosis Iron deficiency anemia Diet-controlled type 2 diabetes mellitus Hypothyroidism Benign essential hypertension Home Medications ?Medication ?Instructions ?Recorded ?Last Taken ?Type glipizide 5 mg tablet 5 mg PO DAILY@0730 diabetes 05/14/17 Unknown History sennosides 8.6 mg-docusate sodium 1 ea PO DAILY stool softner 05/14/17 Unknown History 50 mg tablet meclizine 25 mg tablet 25 mg PO DAILY PRN Dizziness 06/09/20 Unknown History metoprolol tartrate 25 mg tablet 25 mg PO BID #180 tabs 09/14/22 05/30/24 08:25 Rx furosemide 40 mg tablet (Lasix) 40 mg PO BIDCM #180 tabs 10/26/23 Unknown Rx allopurinol 100 mg tablet 100 mg PO DAILY 05/28/24 Unknown History ferrous gluconate 240 mg (27 mg 240 mg PO QDAY 05/28/24 Unknown History iron) tablet levothyroxine 175 mcg tablet 175 mcg PO DAILY 05/28/24 05/30/24 08:00 History mirtazapine 30 mg tablet 30 mg PO QHS 05/28/24 Unknown History pantoprazole 40 mg tablet,delayed 40 mg PO DAILY 05/28/24 05/30/24 08:00 History release cyanocobalamin (vitamin B-12) 1,000 mcg IM QMONTH 05/29/24 Unknown History 1,000 mcg/mL injection solution Allergy/AdvReac Type Severity Reaction Status Date / Time No Known Allergies Allergy Verified 05/29/24 14:54 Family History Son Myocardial infarction, Onset Age: 56 Son CVA (cerebral vascular accident) Mother Cancer Father Lung disease Surgical History History of hysterectomy Hx of appendectomy History of cardioversion (07/2017) History of left heart catheterization (LHC) (02/06/17) Social History household members: family Smoking Status: Never smoker alcohol intake: never substance use type: does not use caffeine: Yes Type: coffee what type of physical activity do you participate in: none and other details: stretching.rom frequency: 1-2 times per week duration: 15-30 minutes/day seatbelt use: never do you feel safe at home: Yes Review of Systems (Anesthesia) ROS Narrative System reviewed and no additional complaints, except as documented.
[2024-05-30] MEDS: Cefazolin 2 GM in Syringe IV (14:25)
[2024-05-30] MEDS: Lidocaine 1% /Epi 1:100 (20ml) 20 ML Vial (14:35)
--- NOTE | 2024-05-30 15:27 | PCM.OPRPT ---
Operative Report (Standard) Operative Information Date of Procedure: 05/30/24 Pre-Operative Diagnosis: 1. Right thumb interphalangeal joint septic arthritis 2. Right index finger distal interphalangeal joint swelling, concern for septic arthritis Post-Operative Diagnosis: 1. Right thumb interphalangeal joint septic arthritis 2. Right thumb interphalangeal joint gouty arthritis 3.. Right index finger distal interphalangeal joint gouty arthritis Surgery/Procedure Performed: 1. Irrigation and debridement right thumb interphalangeal joint and extensor tendon, bone 2. Irrigation debridement right index finger distal interphalangeal joint joint filter tank tender helper: Yes Restaurant Lead: Lavern Allen Tasks completed by surgical first assistant: Opening & closing and Removing tissue Type of Anesthesia: Local MAC RN Documented Start/Stop Times: Operation Date: 05/30/24 14:30 Case Time Into Pre-Op 05/30/24 12:57 Out of Pre-Op 05/30/24 14:24 Anesthesia Start 05/30/24 14:25 Into Room 05/30/24 14:25 Procedure Start 05/30/24 14:43 Procedure End 05/30/24 15:08 Anesthesia End 05/30/24 15:12 Out of Room 05/30/24 15:12 Into Recovery 05/30/24 15:15 Procedure Start Time: 14:43 Procedure Stop Time: 15:08 Select all DRAINS/GRAFTS/IMPLANTS that apply: None Estimated Blood Loss: 5 cc Specimen collected: Yes Description of specimen(s) removed: 1-aerobic and anaerobic tissue culture swabs right index finger distal interphalangeal joint 2-anaerobic and anaerobic culture swabs right thumb interphalangeal joint 3-gross specimen right index finger distal interphalangeal joint deposits Description of surgery: Patient was identified in the preoperative holding area by name, medical record number, and date of . We discussed her surgery on the right thumb at length. She states over the last few days she has noted redness and swelling as well as pain in the DIP joint of her right index finger. I explained this is likely gout however this cannot be ruled out without a fluid analysis. I explained that septic arthritis is a possibility and she wishes to proceed with an irrigation and debridement simultaneously given the planned anesthesia. I felt this was appropriate as well. All questions were answered to the patient's satisfaction. Patient was then brought to the operative suite and positioned supine on a standard operating table. MAC anesthesia was administered and achieved. Well-padded pneumatic tourniquet was applied to the right upper arm. A digital nerve block was administered to the thumb and index finger with 20 cc total 1% lidocaine with epinephrine. We prepped and draped the right upper extremity in normal, sterile orthopedic fashion. Performed a timeout confirming the side, site, and operation to be performed. No concerns were voiced and we elected to proceed with surgery. The first of my attention of the right index finger after 2 g Ancef was administered and tourniquet was inflated to 250 mmHg for approximately 10 minutes. Longitudinal incision was made along the radial aspect of the DIP joint in line with the paronychial fold. Skin flaps were developed. Crystallized material consistent with gout was noted. Minimal fluid was noted in the joint. It was swabbed for culture and sent. No purulence. Particulate was obtained and sent for specimen, presumed gout. I then irrigated the wound. Skin was reapproximated with interrupted simple 4-0 Prolene suture. I then turned my attention to the thumb. Longitudinal incision was made from the germinal matrix to the mid proximal phalanx midline. Full-thickness skin flaps were developed down to level of the extensor tendon. Minimal extensor tendon tearing was noted. I then identified a sinus from the subcutaneous tissue down to level of the joint with interposed particulate consistent with gouty deposits in her index finger. These were excised. Fluid was encountered in the IP joint which did not appear purulent. This was swabbed for culture. The distal phalanx appeared to be arthritic at its base without obvious osteomyelitic changes. There was some relatively soft bone noted at the terminal subchondral bone of the proximal phalanx that was debrided with the rongeur. This did not appear frankly like acute septic arthritis and osteomyelitis. The joint was thoroughly irrigated with normal saline. I loosely reapproximated the skin with interrupted simple 4-0 Prolene suture. Bulky sterile compression dressing was applied. Patient was wake from anesthesia. She was transferred to her gurney and subsequent to PACU in stable condition. Surgical Findings: Suspected gouty arthritis of the DIP joint of the index finger and IP joint of the thumb with involvement of the EPL. Questionable superinfection of of the thumb IP joint and osteomyelitis Complications Complications: No Admit VTE Documentation VTE Present on Admission: No VTE Mechan Device Prophylaxis: SCD's VTE Pharm Prophylaxis ordered?: No Reason prophylaxis not ordered: Treatment Not Indicated
--- NOTE | 2024-05-30 15:47 | SUR.PHASEI ---
ice applied, arm elevated in pacu
--- NOTE | 2024-05-30 16:31 | PCM.POST.ANE ---
Anesthesia: Postop Eval I Current Vital Signs Temperature: 97 F Pulse Rate: 78 Blood Pressure: 132/78 Respiratory Rate: 17 Pulse Ox: 97 Oxygen Delivery Method: Room Air Assessment Airway patent: Yes Spontaneous unlabored respirations: Yes Mental status: Awake and Calm nausea: No Vomiting: No Anesthesia Complication: No Fluid Hydration Crystalloid volume administer (ml): 600 Total IV fluid infused: 600 Progress Note Anesthesia document: Postop Eval 1 completed: Yes
--- NOTE | 2024-05-30 18:55 | POSTOPAN2_ITS ---
Anesthesia Postop Eval I Sum Postop Eval Completion status Anesthesia document: Postop Eval 1 completed: Yes Anesthesia Postop Eval I Summary Anesthesia Postop Eval I Summary: Anesthesia Postop Eval I: Assessment Summary Airway patent Yes 05/30/24 16:32 IT CONSULTING [email or web address] Spontaneous unlabored Yes 05/30/24 16:32 IT CONSULTING [email or web address] respirations Mental status Awake,Calm 05/30/24 16:32 IT CONSULTING [email or web address] nausea No 05/30/24 16:32 IT CONSULTING [email or web address] Vomiting No 05/30/24 16:32 IT CONSULTING [email or web address] Anesthesia Postop Eval I: Fluid Summary Crystalloid volume administer 600 05/30/24 16:32 IT CONSULTING [email or web address] (ml) Colloids volume administered ( ml) Blood Product volume administered (ml) Total IV fluid infused 600 05/30/24 16:32 IT CONSULTING [email or web address] Anesthesia Postop Eval I: Summary Notes Anesthesia Complication No 05/30/24 16:32 IT CONSULTING [email or web address] Anesthesia Complication Comment: Post-operative progress note Anesthesia: Postop Eval II Evaluation Mental status: Awake and Calm Pain Level: 1 nausea: No Vomiting: No Complications Anesthesia Complication: No
--- NOTE | 2024-05-30 18:55 | PCM.POSTANE2 ---
Anesthesia Postop Eval I Sum Postop Eval Completion status Anesthesia document: Postop Eval 1 completed: Yes Anesthesia Postop Eval I Summary Anesthesia Postop Eval I Summary: Anesthesia Postop Eval I: Assessment Summary Airway patent Yes 05/30/24 16:32 [email or web address] Spontaneous unlabored Yes 05/30/24 16:32 [email or web address] respirations Mental status Awake,Calm 05/30/24 16:32 [email or web address] nausea No 05/30/24 16:32 [email or web address] Vomiting No 05/30/24 16:32 [email or web address] Anesthesia Postop Eval I: Fluid Summary Crystalloid volume administer 600 05/30/24 16:32 [email or web address] (ml) Colloids volume administered ( ml) Blood Product volume administered (ml) Total IV fluid infused 600 05/30/24 16:32 [email or web address] Anesthesia Postop Eval I: Summary Notes Anesthesia Complication No 05/30/24 16:32 [email or web address] Anesthesia Complication Comment: Post-operative progress note Anesthesia: Postop Eval II Evaluation Mental status: Awake and Calm Pain Level: 1 nausea: No Vomiting: No Complications Anesthesia Complication: No
== END 2024-05-30 16:28 | disposition home or self-care (01) ==
LOC: SDC 12:51 → AC 12:53
PROVIDERS: PCP Nurse Practitioner Family; Referring Provider Student in an Organized Health Care Education/Training Program; Visit Provider Student in an Organized Health Care Education/Training Program
PROC: (CPT 11044; principal; 2024-05-30 14:20)
DX: M00.841 Arthritis due to other bacteria, right hand (principal); M86.8X4 Other osteomyelitis, hand; I11.0 Hypertensive heart disease with heart failure; I50.32 Chronic diastolic (congestive) heart failure; E11.628 Type 2 diabetes mellitus with other skin complications; E11.69 Type 2 diabetes mellitus with other specified complication; M10.041 Idiopathic gout, right hand; M19.041 Primary osteoarthritis, right hand; L03.011 Cellulitis of right finger; E66.3 Overweight; E03.9 Hypothyroidism, unspecified; Z68.27 Body mass index [BMI] 27.0-27.9, adult; Z71.3 Dietary counseling and surveillance; Z79.84 Long term (current) use of oral hypoglycemic drugs; Z79.890 Hormone replacement therapy; Z79.899 Other long term (current) drug therapy
CPT/HCPCS: 11044; 01830; 82962; 87070; 87075; 87205; 93005; J2405